=== PATIENT | female | born 1940 | race African-American/Black ===

== ENCOUNTER 2016-07-20 11:35 | Emergency (ER) | payer OTHER ==
[~2016-07-20] VITALS: Ht 170.2 cm; Wt 70.8 kg
[~2016-07-20 11:35] MED LIST: ASPI-110 PO; ATOR40TA16 PO; BENETAB PO; BRIM0.2S4 EACH EYE; CLON0.1T PO; DIOV160T6 PO; DORZ2SOL7 EACH EYE; FERR325T PO; FURO1TAB60 PO; GABA300C5 PO; GETGO ROLLING W1 MI1; KLOR8TAB PO; LACTCAP8 PO; LEVA500T PO; METO50TA PO; MIRA33504 PO; PLAV75TA29 PO; XANA1TAB2 PO
[2016-07-20 11:40] VITALS: BP 116/70; PULSE 64; RESP 16; TEMP 97.4; O2SAT 98
[2016-07-20 11:50] VITALS: BP 116/70; PULSE 66; RESP 16; O2SAT 98
[2016-07-20] MEDS ORDERED: AMLO10TA2 PO (12:17)
[2016-07-20 12:27] VITALS: BP 113/78; PULSE 61
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
[2016-07-20 12:48] LABS: AUTOMATED NEUTROPHIL # 1.7 TH/MM3 (1.8-7.7); BASOPHIL % 0.7 % (0.0-2.0); EOSINOPHIL # 0.2 TH/MM3 (0-0.4); EOSINOPHIL % 4.9 % (0.0-4.0); HEMATOCRIT 35.4 % (35.0-46.0); HEMO FLAGS DIFF FINAL; LYMPH % 34.7 % (9.0-44.0); LYMPHOCYTE # 1.2 TH/MM3 (1.0-4.8); MEAN CELL VOLUME 86.9 FL (80.0-100.0); MEAN CORPUSCULAR HEMOGLOBIN 29.7 PG (27.0-34.0); MEAN CORPUSCULAR HGB CONC 34.2 % (32.0-36.0); MONO % 7.8 % (0.0-8.0); NEUT % 51.9 % (16.0-70.0); PLATELET COUNT 342 TH/MM3 (150-450); RED BLOOD COUNT 4.07 MIL/MM3 (4.00-5.30); RED CELL DISTRIBUTION WIDTH 15.8 % (11.6-17.2); WHITE BLOOD COUNT 3.3 TH/MM3 (4.0-11.0)
[2016-07-20 13:04] LABS: BLOOD, URINE NEG (NEG); COMMENT (UR) CATH-CULT NOT IND; CULTURE IF INDICATED CATH CULTURE NOT IND; GLUCOSE,URINE NEG (NEG); HYALINE CAST, URINE 7 /lpf (RARE); KETONE, URINE NEG (NEG); MUCUS URINE FEW /lpf (OCC); NITRITE,URINE NEG (NEG); SQUAMOUS EPITHELIAL CELL URINE <1 /hpf (0-5); URINE COLOR YELLOW (YELLW/STRAW)
--- NOTE | 2016-07-20 13:23 | RADRPT ---
EXAM DATE/TIME: 07/20/2016 13:07 [facility] COMPARISON: No previous studies available for comparison. INDICATIONS : Altered mental status, confusion RADIATION DOSE: 56.35 CTDIvol (mGy) MEDICAL HISTORY : Cardiovascular disease. Congestive heart failure. Hypertension. SURGICAL HISTORY : Hysterectomy. ENCOUNTER: Initial ACUITY: 1 day PAIN SCALE: 0/10 LOCATION: cranial TECHNIQUE: Multiple contiguous axial images were obtained of the head. Using automated exposure control and adj ustment of the mA and/or kV according to patient size, radiation dose was kept as low as reasonably a chievable to obtain optimal diagnostic quality images. FINDINGS: There is marked central and cortical atrophy with dilatation of ventricular and sulcal spaces. Areas of low-attenuation throughout the white matter. There is no parenchymal hemorrhage, acute infarction or mass lesion identified. There are no extra-axial fluid collections appreciated. The posterior f abran is unremarkable with midline fourth ventricle. The portion of the orbits and paranasal sinuses visualized are unremarkable. CONCLUSION: Cerebral atrophy and chronic ischemic small vessel vasculopathy. Devin Davis MD on July 20, 2016 at 13:20 Board Certified Radiologist. This report was verified electronically.
[2016-07-20 13:35] LABS: ANION GAP 8 MEQ/L (5-15); BICARBONATE 26.5 MEQ/L (21.0-32.0); BLOOD UREA NITROGEN 16 MG/DL (7-18); CHLORIDE 105 MEQ/L (98-107); GLOMERULAR FILTRATION RATE 67 ML/MIN (>89); POTASSIUM 4.4 MEQ/L (3.5-5.1); SODIUM (NA) 139 MEQ/L (136-145)
[2016-07-20 14:28] LABS: AMPHETAMINE, URINE NEG (NEG); BARBITURATES, URINE NEG (NEG); COCAINE, URINE NEG (NEG)
[2016-07-20 14:38] VITALS: BP 110/69
== END 2016-07-20 14:59 | disposition home or self-care (01) ==
LOC: NEPC 11:35
DX: T88.7XXA Unspecified adverse effect of drug or medicament, initial encounter (principal); I10 Essential (primary) hypertension; I25.10 Atherosclerotic heart disease of native coronary artery without angina pectoris; I50.9 Heart failure, unspecified; Z87.442 Personal history of urinary calculi; V43.52XA Car driver injured in collision with other type car in traffic accident, initial encounter; Y93.9 Activity, unspecified; Y92.9 Unspecified place or not applicable; Y99.9 Unspecified external cause status
CPT/HCPCS: 70450; 80048; 80307; 81001; 85025

== ENCOUNTER 2016-07-29 06:24 | Inpatient (IN) | payer OTHER, MEDICARE ==
[~2016-07-29] VITALS: Ht 170.2 cm; Wt 64.0 kg
[2016-07-29] VITALS (10 sets, daily range): BP systolic 146–159; BP diastolic 72–96; PULSE 55–64; RESP 16–28; TEMP 97.9–99.2; O2SAT 86–100
[~2016-07-29 06:24] MED LIST changes: +AMLO10TA2 PO; -BENETAB PO; -GETGO ROLLING W1 MI1; -LACTCAP8 PO; -LEVA500T PO; -METO50TA PO
[2016-07-29] MEDS ORDERED: SODIUM CHLORIDE 0.9% FLUSH 10 ML FLUSH IVF PRN (06:30)
--- NOTE | 2016-07-29 06:38 | PD ---
HPI Chief Complaint: Neuro Symptoms/ Deficits Time Seen by Provider: 06:30 Travel History International Travel<30 days: No Contact w/Intl Traveler<30days: No Traveled to known affect area: No History of Present Illness HPI The patient is a 76-year-old Deepa female who presents emergency department via EMS for possible stroke. The patient with the bed feeling fine last night at approximately 9 PM. The patient awakened sometime between 4 AM and 5 AM when she noticed she had a mild left-sided headache, difficulty with her speech, and weakness/numbness of the right lower extremity. The patient does have a history of previous TIA, but denies any history of residual deficits. EMS states when they arrived the patient had expressive aphasia, however, she was able to ambulate out to the driveway to get onto the ambulance. The patient does take aspirin and Plavix. The patient does complain of a headache is located mostly over the left aspect of the head, nonradiating, with no accompanying neck pain. She denies any difficulty with her vision, does note mild dysarthria earlier this morning, however, she states her speech sounds normal now. She does complain of numbness and mild weakness of the right leg. She denies any numbness or tingling to the upper extremities. She does have a history of chronic chest pain, denies any acute chest pain, shortness breath, nausea, vomiting, or abdominal pain. Patient awakened with her symptoms, went to sleep at 9 PM [facility] Past Medical History Arthritis: Yes Asthma: No Autoimmune Disease: No Blood Disorders: No Heart Rhythm Problems: No Cancer: No Cardiac Catheterization: Yes Cardiovascular Problems: Yes High Cholesterol: Yes Chest Pain: Yes Congestive Heart Failure: Yes COPD: No Cerebrovascular Accident: No Coronary Artery Disease: Yes Diabetes: No Endocrine: No Gastrointestinal Disorders: Yes GERD: Yes Glaucoma: No Genitourinary: No Hepatitis: Yes Hiatal Hernia: No Hypertension: Yes Immune Disorder: No Implanted Vascular Access Dvce: Yes Kidney Stones: Yes Musculoskeletal: No Neurologic: No Psychiatric: No Reproductive: No Respiratory: Yes Integumentary: No Migraines: No Seizures: No Sleep Apnea: No Thyroid Disease: No Ulcer: No ?: Not Past Surgical History AICD: No Arteriovenous Shunt: No Body Medical Devices: ROOT CANAL Cardiac Surgery: Yes (2 STENT PLACEMENTS) Coronary Stent: Yes Gynecologic Surgery: Yes (HYSTERECTOMY) Hysterectomy: Yes Insulin Pump: No Joint Replacement: Yes Pacemaker: No Social History Alcohol Use: No Tobacco Use: No Substance Use: No Allergies-Medications (Allergen,Severity, Reaction): Coded Allergies: Morphine (Verified Allergy, Severe, 07/29/16) Percocet (Verified Allergy, Severe, 07/29/16) Tuberculin PPD (Verified Allergy, Severe, REDNESS, SWELLING, 07/29/16) Uncoded Allergies: TB LUZ TEST (Allergy, Intermediate, REDNESS, SWELLING, 10/02/08) Reported Meds & Prescriptions Reported Meds & Active Scripts Active Diovan (Valsartan) 160 Mg Tab 160 Mg PO DAILY 30 Days Reported Amlodipine (Amlodipine Besylate) 10 Mg Tab 10 Mg PO DAILY Xanax (Alprazolam) 1 Mg Tab 1 Mg PO BID PRN Aspirin 81 (Aspirin) 81 Mg Tabdr 81 Mg PO DAILY Atorvastatin (Atorvastatin Calcium) 40 Mg Tab 40 Mg PO HS Brimonidine Opth Drops (Brimonidine Tartrate) 0.2% Soln 1 Drop EACH EYE BID Clonidine (Clonidine HCl) 0.1 Mg Tab 0.1 Mg PO TID PRN Plavix (Clopidogrel Bisulfate) 75 Mg Tab 75 Mg PO DAILY Klor-Con 8 (Potassium Chloride) 8 Meq Tab 8 Meq PO DAILY Cosopt Opth Drops (Dorzolamide-Timolol Opth Drops) 22.3-6.8 Mg/Ml Soln 1 Drop EACH EYE BID Review of Systems Except as stated in HPI: all other systems reviewed are Neg General / Constitutional: No: Fever Eyes: No: Blurred Vision HENT: Positive: Headaches, No: Lightheadedness Cardiovascular: Positive: Chest Pain or Discomfort (chronic chest pain) Respiratory: No: Shortness of Breath Gastrointestinal: No: Nausea, Vomiting, Abdominal Pain Musculoskeletal: Positive: Weakness Neurologic: Positive: Headache, Paresthesia, Sensory Disturbance Physical Exam Narrative GENERAL: Awake, alert, pleasant 76-year-old female who appears her stated age and is in no acute respiratory distress. SKIN: Focused skin assessment warm/dry. HEAD: Atraumatic. Normocephalic. EYES: Pupils equal and round. Pupils are 2 mm bilateral and reactive. EOMs are intact. Patient is able to see fingers at a distance of 2 feet without difficulty. No obvious visual field deficits. ENT: No nasal bleeding or discharge. Mucous membranes pink and moist. NECK: Trachea midline. No JVD. CARDIOVASCULAR: Regular rate and rhythm. No murmur appreciated. RESPIRATORY: No accessory muscle use. Clear to auscultation. Breath sounds equal bilaterally. GASTROINTESTINAL: Abdomen soft, non-tender, nondistended. No rebound tenderness. MUSCULOSKELETAL: No obvious deformities. No clubbing. No cyanosis. No edema. NEUROLOGICAL: Awake and alert. Mild right sided facial droop. Tongue is midline. EOMs are intact. Patient is a was see fingers at a distance of 2 feet without difficulty. No drift of the upper extremities. No drift of the left lower extremity. Drift of the right lower extremity that falls to the bed after 2 seconds. Sensation is mildly decreased on the right lower extremity to soft touch when compared to the left leg. The arms are symmetric in the face is symmetric bilaterally. Finger to nose is normal. Patient had difficulty with nwas-ci-toed with the right lower extremity. Patient is alert and oriented 3. Patient appears to have mild dysarthria and appears to have mild expressive aphasia. PSYCHIATRIC: Appropriate mood and affect; insight and judgment normal. Data Data Last Documented VS Vital Signs Date Time Temp Pulse Resp B/P Pulse Ox O2 Delivery O2 Flow Rate FiO2 07/29/16 06:36 100 Room Air 07/29/16 06:33 64 16 07/29/16 06:28 97.9 153/96 Orders Electrocardiogram (07/29/16 06:30) Prothrombin Time / Inr (Pt) (07/29/16 06:30) Act Partial Throm Time (Ptt) (07/29/16 06:30) Complete Blood Count With Diff (07/29/16 06:30) Comprehensive Metabolic Panel (07/29/16 06:30) Creatine Kinase (Cpk) (07/29/16 06:30) Troponin I (07/29/16 06:30) Urinalysis - C+S If Indicated (07/29/16 06:30) Ct Brain W/O Iv Contrast(Rout) (07/29/16 06:30) Cta Brain W Iv Contrast W 3d (07/29/16 06:30) Cta Neck W Iv Contrast W 3d (07/29/16 06:30) Chest, Single Ap (07/29/16 06:30) Ecg Monitoring (07/29/16 06:30) Iv Access Insert/Monitor (07/29/16 06:30) Oximetry (07/29/16 06:30) Sodium Chloride 0.9% Flush (Ns Flush) (07/29/16 06:30) I-Stat Creatinine (07/29/16 06:30) I-Stat Profile (07/29/16 06:30) Labs Laboratory Tests Test 07/29/16 06:30 Bedside Creatinine 0.9 MG/DL MDM Medical Decision Making Medical Screen Exam Complete: Yes Emergency Medical Condition: Yes Medical Record Reviewed: Yes Interpretation(s) CT of the head without contrast reveals stable brain. No acute intracranial findings. Differential Diagnosis Differential diagnoses includes CVA, TIA, intracranial hemorrhage, subdural hemorrhage, subarachnoid hemorrhage, hypoglycemia, hyponatremia, hypocalcemia, carotid dissection, complicated migraine. Narrative Course IV was established, labs are drawn and sent, and the patient was placed on cardiac telemetry monitoring and continuous pulse ox imaging monitoring. EKG was ordered and interpreted. Patient went immediately to CT for CT the brain, I also ordered CTA of the brain and neck, the patient was seen on July 20, 2016 for medication side effect and had a creatinine is 0.98. CT of the brain was stable, no acute intracranial findings. Therefore, the patient was administered aspirin. The patient was signed out to the oncoming physician at 7 AM. Diagnosis Primary Impression: CVA (cerebral vascular accident) Qualified Code: I63.9 - Cerebrovascular accident (CVA), unspecified mechanism Condition: Stable Rashaad Arzola MD Jul 29, 2016 06:37
--- NOTE | 2016-07-29 06:52 | RADRPT ---
EXAM DATE/TIME: 07/29/2016 06:32 [facility] COMPARISON: CT BRAIN W/O CONTRAST, July 20, 2016, 13:07. INDICATIONS : Right sided facial droop. Cephalgia. RADIATION DOSE: 56.35 CTDIvol (mGy) MEDICAL HISTORY : Cardiovascular disease. Stroke SURGICAL HISTORY : None. ENCOUNTER: Initial ACUITY: 1 day PAIN SCALE: 0/10 LOCATION: cranial TECHNIQUE: Multiple contiguous axial images were obtained of the head. Using automated exposure control and adj ustment of the mA and/or kV according to patient size, radiation dose was kept as low as reasonably a chievable to obtain optimal diagnostic quality images. FINDINGS: There is a stable tiny left basal ganglia lacunar infarct. No evidence of intracranial mass or hemorr ruiz. There is nothing to suggest acute infarction. There is dense atherosclerotic calcification invo lving the cerebral vessels. Ventricles are symmetric and normal. Extracranial structures are benign a nd intact. CONCLUSION: Stable brain. No acute intracranial findings Jhon Dixon MD on July 29, 2016 at 6:48 Board Certified Radiologist. This report was verified electronically.
[2016-07-29 06:55] LABS: AUTOMATED NEUTROPHIL # 1.2 TH/MM3 (1.8-7.7); BASOPHIL % 0.6 % (0.0-2.0); EOSINOPHIL # 0.2 TH/MM3 (0-0.4); EOSINOPHIL % 5.3 % (0.0-4.0); HEMATOCRIT 30.5 % (35.0-46.0); HEMO FLAGS DIFF FINAL; LYMPHOCYTE # 1.4 TH/MM3 (1.0-4.8); MEAN CELL VOLUME 86.4 FL (80.0-100.0); MEAN CORPUSCULAR HGB CONC 33.6 % (32.0-36.0); NEUT % 37.1 % (16.0-70.0); PLATELET COUNT 312 TH/MM3 (150-450); RED BLOOD COUNT 3.53 MIL/MM3 (4.00-5.30); RED CELL DISTRIBUTION WIDTH 15.3 % (11.6-17.2); WHITE BLOOD COUNT 3.2 TH/MM3 (4.0-11.0)
[2016-07-29] MEDS ORDERED: IOHEXOL 350 MG/ML 10 ML VIAL (for RAD DIAG) IV ONE (06:57)
[2016-07-29 06:59] LABS: I-STAT POTASSIUM 3.6 MMOL/L (3.5-4.9); I-STAT SODIUM 142 MMOL/L (138-146)
[2016-07-29] MEDS ORDERED: ASPIRIN 325 MG TAB PO ONE (07:00)
--- NOTE | 2016-07-29 07:00 | RADRPT ---
EXAM DATE/TIME: 07/29/2016 06:52 [facility] COMPARISON: CHEST SINGLE AP, February 06, 2016, 11:31. INDICATIONS : Short of breath MEDICAL HISTORY : None. SURGICAL HISTORY : None. ENCOUNTER: Initial ACUITY: 1 day PAIN SCORE: 110 LOCATION: Bilateral chest FINDINGS: No the lungs are focally clear. No pleural effusion is evident. Cardiomediastinal contours are grossl y stable. There is contrast present within the venous structures of the right arm, presumably from re cent CT injection. Thoracic skeleton is grossly intact. CONCLUSION: No acute disease Jhon Dixon MD on July 29, 2016 at 6:57 Board Certified Radiologist. This report was verified electronically.
[2016-07-29 07:02] LABS: APTT (PATIENT) 32.9 SEC (24.3-30.1); PROTHROMBIN TIME - PATIENT 10.9 SEC (9.8-11.6)
[2016-07-29 07:10] LABS: ALT (GPT) 17 U/L (10-53); ANION GAP 8 MEQ/L (5-15); AST (GOT) 13 U/L (15-37); BICARBONATE 26.8 MEQ/L (21.0-32.0); BLOOD UREA NITROGEN 11 MG/DL (7-18); CHLORIDE 106 MEQ/L (98-107); GLOMERULAR FILTRATION RATE 73 ML/MIN (>89); POTASSIUM 3.6 MEQ/L (3.5-5.1); SODIUM (NA) 141 MEQ/L (136-145)
[2016-07-29 07:14] LABS: ALKALINE PHOSPHATASE 65 U/L (45-117); CREATINE KINASE 117 U/L (26-192); TOTAL BILIRUBIN ADULT 0.3 MG/DL (0.2-1.0)
--- NOTE | 2016-07-29 07:24 | RADRPT ---
EXAM DATE/TIME: 07/29/2016 06:43 [facility] COMPARISON: CT BRAIN W/O CONTRAST, July 29, 2016, 6:32. INDICATIONS : Cephalgia. Right sided facial droop. IV CONTRAST: 85 cc Omnipaque 350 (iohexol) IV RADIATION DOSE: 12.98 CTDIvol (mGy) ; Combined studies MEDICAL HISTORY : Cerebrovascular disease. Stroke SURGICAL HISTORY : None. ENCOUNTER: Initial ACUITY: 1 day PAIN SCALE: 0/10 LOCATION: cranial TECHNIQUE: Volumetric scanning was performed using a multi-row detector CT scanner. The data was post processed with a variety of visualization algorithms including full volume maximum intensity projection, multi -planar sliding thin slab reformation, curved planar reformation, and surface rendering techniques. Using automated exposure control and adjustment of the mA and/or kV according to patient size, radiat ion dose was kept as low as reasonably achievable to obtain optimal diagnostic quality images. FINDINGS: There is excellent visualization of the major intracranial arteries out to the second-order branch ve ssels. There is no evidence for aneurysm, vessel truncation or stenosis, and no evidence for vascula r malformation. There is atherosclerotic plaquing of the intracranial vasculature were scattered calc ifications seen. No evidence of high-grade stenosis. The vertebrobasilar system is quite tortuous but widely patent.1.4 cm heterogeneous solid right thyroid lobe mass seen posteriorly and 2 masses in th e left thyroid lobe measuring 7.6 mm and 6.5 mm on axial image 13. CONCLUSION: Atherosclerotic disease without evidence of high-grade stenosis or aneurysm. Thyroid nodules. Betito Gardner MD on July 29, 2016 at 7:19 Board Certified Radiologist. This report was verified electronically.
--- NOTE | 2016-07-29 07:54 | RADRPT ---
EXAM DATE/TIME: 07/29/2016 06:43 [facility] COMPARISON: No previous studies available for comparison. INDICATIONS : Cephalgia. Right sided facial droop. IV CONTRAST: 85 cc Omnipaque 350 (iohexol) IV RADIATION DOSE: 12.98 CTDIvol (mGy) ; Combined studies MEDICAL HISTORY : Cerebrovascular disease. Stroke SURGICAL HISTORY : None. ENCOUNTER: Initial ACUITY: 1 day PAIN SCALE: 0/10 LOCATION: cranial Elevated flow velocities and ICA/CCA ratios have been found to correlate with increased degrees of vessel stenosis, calculated as percentage of diameter relative to a normal segment of distal ICA/CCA. TECHNIQUE: Volumetric scanning was performed using a multirow detector CT scanner. The data was post processed with a variety of visualization algorithms including full-volume maximum intensity projection, multip lanar sliding thin-slab reformation, curved-planar reformation, and surface-rendering techniques. Us ing automated exposure control and adjustment of the mA and/or kV according to patient size, radiatio n dose was kept as low as reasonably achievable to obtain optimal diagnostic quality images. FINDINGS: AORTIC ARCH: There is a three-vessel origin of the great vessels from the aorta. No evidence of ostial narrowing. RIGHT CAROTID: The common carotid artery demonstrates no abnormality. The carotid bulb has a normal configuration wi thout ulceration or narrowing. There is mild calcified and noncalcified plaque in the carotid bulb. I nternal carotid artery and external carotid artery demonstrate no significant abnormality. LEFT CAROTID: The common carotid artery demonstrates no abnormality. The carotid bulb has a normal configuration wi thout ulceration or narrowing. There is mild calcified and noncalcified plaque in the carotid bulb. I nternal carotid artery and external carotid artery demonstrate no significant abnormality. VERTEBRALS: The vertebral arteries have a symmetric diameter. No stenotic lesions are seen. There are bilateral thyroid nodules measuring up to 13 mm on the right. CONCLUSION: 1. Mild atherosclerotic disease in the carotid bulbs bilaterally but there is no associated luminal n arrowing. 2. There is a 13 mm right thyroid nodule. Jhon Bach MD on July 29, 2016 at 7:40 Board Certified Radiologist. This report was verified electronically.
[2016-07-29 08:14] LABS: BLOOD, URINE NEG (NEG); COMMENT (UR) CATH-CULT NOT IND; CULTURE IF INDICATED CATH CULTURE NOT IND; GLUCOSE,URINE NEG (NEG); KETONE, URINE NEG (NEG); MUCUS URINE FEW /lpf (OCC); NITRITE,URINE NEG (NEG); URINE COLOR LIGHT-YELLOW (YELLW/STRAW)
--- NOTE | 2016-07-29 11:21 | EKG ---
Date Performed: 07/29/2016 Time Performed: 06:59:37 PTAGE: 76 years EKG: SINUS BRADYCARDIA WITH FIRST DEGREE AV BLOCK WITH OCCASIONAL SUPRAVENTRICULAR PREMATURE COM PLEXES MARKED LEFT AXIS DEVIATION LEFT BUNDLE BRANCH BLOCK ABNORMAL ECG PREVIOUS TRACING : 02/08/2016 00.10 Compared to prior tracing no significant change DOCTOR: Anuj Acevedo Interpretating Date/Time 07/29/2016 11:20:29
[2016-07-29] MEDS ORDERED: SODIUM CHLOR 0.9% 1000 ML INJ 1,000 ML IV SCH (11:33)
[2016-07-29] MEDS ORDERED: GLUCAGON 1 MG/ML VIAL OTHER PRN (11:45)
[2016-07-29] MEDS ORDERED: DEXTROSE 50% IN WATER 50 ML VIAL(D50) IV PUSH PRN (11:45)
[2016-07-29] MEDS ORDERED: SODIUM CHLORIDE 0.9% FLUSH 5 ML FLUSH IV FLUSH PRN (11:45)
[2016-07-29] MEDS ORDERED: ENALAPRILAT 1.25 MG/ML VIAL IV PRN (11:45)
--- NOTE | 2016-07-29 11:53 | PD ---
Data Data Last Documented VS Vital Signs Date Time Temp Pulse Resp B/P Pulse Ox O2 Delivery O2 Flow Rate FiO2 07/29/16 11:21 56 18 159/90 98 Room Air 07/29/16 06:28 97.9 Orders Electrocardiogram (07/29/16 06:30) Prothrombin Time / Inr (Pt) (07/29/16 06:30) Act Partial Throm Time (Ptt) (07/29/16 06:30) Complete Blood Count With Diff (07/29/16 06:30) Comprehensive Metabolic Panel (07/29/16 06:30) Creatine Kinase (Cpk) (07/29/16 06:30) Troponin I (07/29/16 06:30) Urinalysis - C+S If Indicated (07/29/16 06:30) Ct Brain W/O Iv Contrast(Rout) (07/29/16 06:30) Cta Brain W Iv Contrast W 3d (07/29/16 06:30) Cta Neck W Iv Contrast W 3d (07/29/16 06:30) Chest, Single Ap (07/29/16 06:30) Ecg Monitoring (07/29/16 06:30) Iv Access Insert/Monitor (07/29/16 06:30) Oximetry (07/29/16 06:30) Sodium Chloride 0.9% Flush (Ns Flush) (07/29/16 06:30) I-Stat Creatinine (07/29/16 06:30) I-Stat Profile (07/29/16 06:30) Aspirin (Aspirin) (07/29/16 07:00) Iohexol 350 Inj (Omnipaque 350 Inj) (07/29/16 06:57) Admit To Inpatient (07/29/16 ) Vital Signs (Adult) Q4H (07/29/16 11:33) Nih Stroke Scale - Nihss .On admission and discharge (07/29/16 11:33) Notify Dr: Other (07/29/16 11:33) Ot Request For Service (07/29/16 11:33) Consult Pt Eval & Treat (07/29/16 11:33) Swallow Eval W/ St (07/29/16 11:33) Case Management Consult (07/29/16 ) Activity Bed Rest (07/29/16 11:33) Nursing Bedside Swallow Assess .ONCE (07/29/16 11:33) Scd Bilateral/Knee High TIFFANIE.QSHIFT (07/29/16 11:33) Diet Npo (07/29/16 Lunch) Hemoglobin (Hgb) A1c (07/29/16 11:33) Lipid Profile (07/30/16 06:00) Holter Monitor Recording (07/29/16 ) Echo 2d Comp With Doppler (07/29/16 ) Urinary Catheter Management TIFFANIE.Q8H (07/29/16 11:33) Remove Urinary Catheter .ONCE (07/29/16 11:33) Resp Oxygen Wilson C Titrat 1-4 L (07/29/16 ) ^ Hold Medication (07/29/16 11:33) Consult Neurology (07/29/16 ) Sodium Chloride 0.9% Flush (Ns Flush) (07/29/16 21:00) Sodium Chloride 0.9% Flush (Ns Flush) (07/29/16 11:45) Sodium Chlor 0.9% 1000 Ml Inj (Ns 1000 M (07/29/16 11:33) Enalaprilat Inj (Vasotec Inj) (07/29/16 11:45) Aspirin Chew (Aspirin Chew) (07/30/16 09:00) Bedside Glucose TIFFANIE.AC&HS (07/29/16 11:33) ^ Discontinue Insulin Orders (07/29/16 11:33) Insulin Aspart Supplemtl Scale (Novolog (07/29/16 16:00) Dextrose 50% In Alexandre (Vial) Inj (D50w (Vi (07/29/16 11:45) Glucagon Inj (Glucagon Inj) (07/29/16 11:45) Consult Rehab Medicine (07/29/16 11:33) Field Geologist / Telemetry TIFFANIE.Q8H (07/29/16 11:33) Consult Stoke Navigator (07/29/16 ) Enoxaparin Inj (Lovenox Inj) (07/29/16 11:45) Scd Bilateral/Knee High TIFFANIE.BID (07/29/16 11:33) Inpatient Certification (07/29/16 ) Admit Order (Ed Use Only) (07/29/16 11:48) Labs Laboratory Tests Test 07/29/16 07/29/16 06:30 07:45 White Blood Count 3.2 TH/MM3 Red Blood Count 3.53 MIL/MM3 Hemoglobin 10.2 GM/DL Bedside Hemoglobin 10.5 G/DL Hematocrit 30.5 % Bedside Hematocrit 31.0 % Mean Corpuscular Volume 86.4 FL Mean Corpuscular Hemoglobin 29.0 PG Mean Corpuscular Hemoglobin 33.6 % Concent Red Cell Distribution Width 15.3 % Platelet Count 312 TH/MM3 Mean Platelet Volume 7.3 FL Neutrophils (%) (Auto) 37.1 % Lymphocytes (%) (Auto) 44.0 % Monocytes (%) (Auto) 13.0 % Eosinophils (%) (Auto) 5.3 % Basophils (%) (Auto) 0.6 % Neutrophils # (Auto) 1.2 TH/MM3 Lymphocytes # (Auto) 1.4 TH/MM3 Monocytes # (Auto) 0.4 TH/MM3 Eosinophils # (Auto) 0.2 TH/MM3 Basophils # (Auto) 0.0 TH/MM3 CBC Comment DIFF FINAL Differential Comment Prothrombin Time 10.9 SEC Prothromb Time International 1.0 RATIO Ratio Activated Partial 32.9 SEC Thromboplast Time Bedside Sodium 142 MMOL/L Sodium Level 141 MEQ/L Bedside Potassium 3.6 MMOL/L Potassium Level 3.6 MEQ/L Bedside Chloride 103 MMOL/L Chloride Level 106 MEQ/L Carbon Dioxide Level 26.8 MEQ/L Anion Gap 8 MEQ/L Bedside Blood Urea Nitrogen 12 MG/DL Blood Urea Nitrogen 11 MG/DL Creatinine 0.91 MG/DL Bedside Creatinine 0.9 MG/DL Estimat Glomerular Filtration 73 ML/MIN Rate Bedside Glucose 99 MG/DL Random Glucose 97 MG/DL Calcium Level 8.9 MG/DL Total Bilirubin 0.3 MG/DL Aspartate Amino Transf 13 U/L (AST/SGOT) Alanine Aminotransferase 17 U/L (ALT/SGPT) Alkaline Phosphatase 65 U/L Total Creatine Kinase 117 U/L Troponin I LESS THAN 0.02 NG/ML Total Protein 7.6 GM/DL Albumin 3.5 GM/DL Urine Color LIGHT-YELLOW Urine Turbidity CLEAR Urine pH 6.0 Urine Specific [place] 1.039 Urine Protein NEG mg/dL Urine Glucose (UA) NEG mg/dL Urine Ketones NEG mg/dL Urine Occult Blood NEG Urine Nitrite NEG Urine Bilirubin NEG Urine Urobilinogen LESS THAN 2.0 MG/DL Urine Leukocyte Esterase NEG Urine RBC LESS THAN 1 /hpf Urine WBC 1 /hpf Urine Mucus FEW /lpf Microscopic Urinalysis Comment CATH-CULT NOT IND MDM Supervised Visit with DIAZ: No Narrative Course Is checked out to me by Dr. Arzola. This patient woke up with right-sided weakness and speech slurring. I reviewed the entirety of the workup. I reviewed her labs. Brain CT shows no acute finding CTA is negative for aneurysm or dissection I reviewed the case with Dr. 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
[2016-07-29] MEDS: ENOXAPARIN SODIUM 30 MG/0.3 ML SYRINGE SQ SCH (12:34)
[2016-07-29] MEDS: SODIUM CHLOR 0.9% 1000 ML INJ 1,000 ML IV SCH (13:38)
[2016-07-29 15:42] LABS: FREE T4 0.94 NG/DL (0.76-1.46); HDL CHOLESTEROL 45.3 MG/DL (40.0-60.0)
[2016-07-29] MEDS ORDERED: LORazepam 2 MG/ML VIAL ONE (15:50)
[2016-07-29] MEDS: INSULIN ASPART SUPPLEMENTAL SCALE SQ SCH ×2 (16:00→21:00)
[2016-07-29] MEDS ORDERED: LORazepam 2 MG/ML VIAL IV ONE (16:15)
[2016-07-29 16:28] LABS: HEMOGLOBIN A1a 1.1 %; HEMOGLOBIN A1b 0.8 %; HEMOGLOBIN Ao 85.3 %; HEMOGLOBIN F 1.1 %; HEMOGLOBIN LA1C 1.9 %; HEMOGLOBIN P3 5.2 %
[2016-07-29] MEDS ORDERED: levETIRAcetam 1000 MG INJ 100 ML IV ONE (16:30)
--- NOTE | 2016-07-29 16:41 | RADRPT ---
EXAM DATE/TIME: 07/29/2016 16:00 [facility] COMPARISON: CTA BRAIN W 3D RECON, July 29, 2016, 6:43. CT BRAIN W/O CONTRAST, July 29, 2016, 6:32. INDICATIONS : CVA. Right facial droop, cephalgia. CONTRAST: 12 cc Omniscan (gadodiamide) IV MEDICAL HISTORY : Osteoarthritis. Congestive heart failure. Hypertension. GERD. SURGICAL HISTORY : Total knee replacement, right. Hysterectomy. Coronary artery stent. ENCOUNTER: Subsequent ACUITY: 1 day PAIN SCORE: 0/10 LOCATION: head. TECHNIQUE: Multiplanar, multisequence MRI of the brain was performed both prior to and following the administrat ion of paramagnetic contrast. FINDINGS: CEREBRUM: There is mild cerebral atrophy. Ventricles are normal in size. No evidence of midline shift, mass les ion, hemorrhage or acute infarction. No extraaxial fluid collections are seen. There is a partially empty sella turcica. WHITE MATTER: There is mild periventricular and subcortical white matter signal change bilaterally. POSTERIOR FOSSA: Punctate area of susceptibility artifact is present in the right cerebellum. Fourth ventricle is norm al. The ectatic basilar artery has mild mass effect on the right jorge. DIFFUSION IMAGING: No focal areas of restricted diffusion are seen. No evidence of acute infarction. EXTRACRANIAL: The visualized portions of the orbits and paranasal sinuses are unremarkable. POST-CONTRAST: No abnormal areas of parenchymal or dural enhancement. No evidence of blood-brain barrier breakdown. CONCLUSION: 1. No acute intracranial abnormality is identified. There are no findings to indicate recent ischemia . 2. Chronic changes include mild cerebral atrophy and periventricular and subcortical white matter sig nal changes characteristic of chronic microvascular ischemia. Jhon Bach MD on July 29, 2016 at 16:33 Board Certified Radiologist. This report was verified electronically.
--- NOTE | 2016-07-29 17:19 | EC ---
Study Study Date:07/29/2016 STUDY CONCLUSIONS SUMMARY - Left ventricle: The cavity size was dilated. Wall thickness was increased in a pattern of mild LVH. Systolic function was mildly reduced. The estimated ejection fraction was in the range of 45% to 50%. Diffuse hypokinesis. - Aortic valve: Moderate regurgitation. Valve area: 2.27cm^2 (Vmax). - Aorta: The possibility of dissection is not excluded. Ascending aortic diameter: 42mm (S). - Aortic root: The aortic root was poorly visualized and dilated. - Right atrium: The atrium was mildly dilated. - Tricuspid valve: Moderate regurgitation. - Pulmonary arteries: Systolic pressure was moderately increased. PA peak pressure: 54mm Hg (S). If LV function is below 40, please consider prescribing an ACEI or ARB or document rationale for non-use. PROCEDURE DATA STUDY STATUS: Elective. Procedure: Transthoracic echocardiography. Image quality was good. Scanning was performed from the parasternal, apical, and subcostal acoustic windows. Study completion: The patient tolerated the procedure well. Transthoracic echocardiography. M-mode, complete 2D, complete spectral Doppler, and color Doppler. Height: Height: 67in. Weight: Weight: 138.7lb. Body mass index: BMI: 21.8kg/m^2. Body surface area: BSA: 1.73m^2. Patient status: Inpatient. CARDIAC ANATOMY LEFT VENTRICLE: Not well visualized. The cavity size was dilated. Wall thickness was increased in a pattern of mild LVH. Systolic function was mildly reduced. The estimated ejection fraction was in the range of 45% to 50%. Diffuse hypokinesis. AORTIC VALVE: Probably trileaflet; mildly thickened leaflets. Doppler: Transvalvular velocity was within the normal range. There was no stenosis. Moderate regurgitation. Valve area: 2.27cm^2 (Vmax). Indexed valve area: 1.31cm^2/m^2 (Vmax). Aorta: - The possibility of dissection is not excluded. Aortic root: The aortic root was poorly visualized and dilated. MITRAL VALVE: Structurally normal valve. Doppler: Transvalvular velocity was within the normal range. There was no evidence for stenosis. No regurgitation. Peak gradient: 4mm Hg (D). LEFT ATRIUM: The atrium was normal in size. RIGHT VENTRICLE: The cavity size was normal. Wall thickness was normal. PULMONIC VALVE: Doppler: Transvalvular velocity was within the normal range. There was no evidence for stenosis. No regurgitation. TRICUSPID VALVE: Structurally normal valve. Doppler: Transvalvular velocity was within the normal range. Moderate regurgitation. PULMONARY ARTERY: Systolic pressure was moderately increased. RIGHT ATRIUM: The atrium was mildly dilated. PERICARDIUM: There was no pericardial effusion. SYSTEMIC VEINS: Inferior vena cava: The vessel was normal in size. Patient weight: 138.7lb _Ejection fraction:_ 65-75% _Fractional shortening:_ 32% up to 5Kg 5-11.5Kg 11.6-22.9Kg 23-45Kg 45-57Kg Aortic Root 7-13 <17 13-22 17-27 17-27 LA diam 6-13 <23 24-38 33-47 37-40 RVID 10-17 7-15 7-15 7-18 8-17 LVIDd 12-22 <32 24-38 33-47 37-40 LVPW 2-4 3-6 5-7 6-8 7-8 IVS 2-4 3-6 5-7 6-8 7-8 BASIC MEASUREMENTS ADULT NORMAL Left ventricle LV internal dimension, ED, chordal 44.5 mm 43-52 level, PLAX LV internal dimension, ES, chordal 36.3 mm 23-38 level, PLAX Fractional shortening, chordal level, *18 % >29 PLAX LV posterior wall thickness, ED 10.9 mm IVS/LVPW ratio, ED 1.03 <1.3 Ventricular septum Septal thickness, ED 11.2 mm Aortic valve Leaflet separation 23 mm 15-26 Aorta Ascending aorta anterior-posterior 42 mm diameter, S BASIC MEASUREMENTS ADULT NORMAL Aortic valve Leaflet separation 23 mm 15-26 Aorta Root diameter, ED 36 mm 20-37 Left atrium Anterior-posterior dimension, ES 32 mm 19-40 Anterior-posterior dimension index, ES 1.85 cm/m^2 <2.2 LA/aortic root ratio 0.89 DOPPLER MEASUREMENTS ADULT NORMAL Main pulmonary artery Pressure, S *54 mm Hg =30 Pressure, ED 14 mm Hg Aortic valve Peak velocity, S 147 cm/s Valve area, Vmax 2.27 cm^2 Valve area index, Vmax 1.31 cm^2/m^2 Regurgitant velocity, ED 309 cm/s Regurgitant deceleration 824 cm/s^2 Regurgitant pressure half-time 1099 ms Regurgitant gradient, ED 38 mm Hg Mitral valve Peak E-wave velocity 105 cm/s Peak A-wave velocity 83.9 cm/s Deceleration time *289 ms 150-230 Peak gradient, D 4 mm Hg Peak E/A ratio 1.3 Tricuspid valve Regurgitant peak velocity 267 cm/s Peak RV-RA gradient, S 29 mm Hg Maximal regurgitant velocity 267 cm/s Systemic veins Estimated CVP 10 mm Hg Right ventricle RV pressure, S *58 mm Hg <30 Pulmonic valve Peak velocity, S 100 cm/s Regurgitant velocity, ED 102 cm/s LEGEND: Mean values are shown as u=mean value. Asterisk (*) milton values outside specified normal range. Amended Vargas Chavira [id number]
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
[2016-07-29] MEDS ORDERED: GADODIAMIDE PF 287 MG/ML 5 ML VIAL (for RAD MRI) IV ONE (17:43)
[2016-07-29] MEDS: SODIUM CHLORIDE 0.9% FLUSH 5 ML FLUSH IV FLUSH SCH (21:00)
--- NOTE | 2016-07-29 23:20 | MG ---
cc: NASREEN OLSEN MD Lab No: Date: 07/29/16 Age: 75 Sex: F Race: 1940 [address] Rouse MEDICAL HISTORY Headache, difficulty with speech, weakness and numbness. MEDICATIONS 1. Amlodipine mesylate 2. Xanax 3. Aspirin. 4. Atorvastatin 5. Clonidine 6. Plavix DESCRIPTION The background activity is 9-10 Hz alpha, located posteriorly, bilateral and symmetrical superimposed by excessive beta activity. The recording is contaminated by excessive movement artifact. There are intermittent transient left frontal sharp wave activity. These are bilateral left greater than the right. There is also spike and wave activity in the bilateral frontal hemisphere. Photic stimulation did not elicit a driving response. There were no electrographic seizures noted during the recording. INTERPRETATION This is a abnormal awake EEG recording with intermittent sharp activity and with spike and wave activity, left greater than right hemisphere of the brain that may indicate epileptogenicity. Excessive beta activity is a non specific finding that may be related to medication adverse effects like Benzo and Barbiturates. Absence of electrocardiographic seizures does not rule out the diagnosis of epilepsy. Clinical correlation is recommended. MD ZAFAR Mckeon/ /4:51 PM /11:14 PM MTDD
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
[2016-07-30] VITALS (19 sets, daily range): BP systolic 107–182; BP diastolic 70–125; PULSE 52–133; RESP 14–37; TEMP 98.4–99.3; O2SAT 71–100
[2016-07-30] MEDS: ATORVASTATIN 40 MG TAB PO SCH ×2 (00:38→19:30)
[2016-07-30] MEDS: BRIMONIDINE TARTRATE 0.2% OPHT SOLN 5 ML BTL EACH EYE SCH ×3 (00:38→19:31)
[2016-07-30] MEDS: SODIUM CHLOR 0.9% 1000 ML INJ 1,000 ML IV SCH ×2 (00:39→17:32)
[2016-07-30 04:13] LABS: AMPHETAMINE, URINE NEG (NEG); BARBITURATES, URINE NEG (NEG); COCAINE, URINE NEG (NEG)
[2016-07-30 06:23] LABS: HDL CHOLESTEROL 48.6 MG/DL (40.0-60.0)
[2016-07-30] MEDS: levETIRAcetam 1000 MG INJ 100 ML IV SCH ×2 (06:42→17:31)
[2016-07-30] MEDS: INSULIN ASPART SUPPLEMENTAL SCALE SQ SCH ×4 (06:42→19:31)
[2016-07-30] MEDS: DORZOLAMIDE/TIMOLOL OPTH SOLN 10 ML BTL EACH EYE SCH ×2 (08:05→19:31)
[2016-07-30] MEDS: CLOPIDOGREL 75 MG TAB PO SCH (08:05)
[2016-07-30] MEDS: SODIUM CHLORIDE 0.9% FLUSH 5 ML FLUSH IV FLUSH SCH ×2 (08:13→19:31)
[2016-07-30] MEDS ORDERED: ALPRAZolam 0.25 MG TAB PO PRN (08:15)
[2016-07-30] MEDS ORDERED: ASPIRIN 81 MG CHEW TAB PO SCH (09:00)
--- NOTE | 2016-07-30 09:16 | HHI.PR ---
Subjective Remarks tmax 99 Objective Vital Signs Date Time Temp Pulse Resp B/P Pulse Ox O2 Delivery O2 Flow Rate FiO2 07/30/16 06:00 62 07/30/16 04:00 52 07/30/16 04:00 99.3 80 34 151/82 71 07/30/16 02:00 53 07/30/16 00:00 52 07/30/16 00:00 98.9 56 18 135/86 100 07/29/16 22:00 59 07/29/16 20:43 99 21 07/29/16 20:00 55 07/29/16 20:00 99.2 60 28 86 07/29/16 18:34 62 07/29/16 17:01 58 18 146/72 98 07/29/16 12:34 57 18 159/90 98 Room Air 07/29/16 11:21 56 18 159/90 98 Room Air I/O 07/29/16 07/29/16 07/29/16 07/30/16 07/30/16 07/30/16 07:00 15:00 23:00 07:00 15:00 23:00 Intake Total 1000 ml 795 ml Output Total 1150 ml Balance -150 ml 795 ml Intake Oral 700 ml 355 ml IV Total 300 ml 440 ml Output Urine Total 1150 ml # Voids 3 # Bowel Movements 2 0 Result Diagram: 07/29/16 0630 07/29/16 0630 Other Results mri nl labs ok eeg some spike wave Objective Remarks awake some expressive type problems moves all well does not know yr month or place Assessment and Plan Assessment and Plan imp eeg shows some sz activity mri neg i think probably posticta interictal doubt encephalitis but also possible start acyclovir i will review eeg repeat eeg on plavix so LP unable on keppra add Fazal Wiley MD Jul 30, 2016 09:16
[2016-07-30] MEDS ORDERED: VALPROATE INJ 500 MG in SODIUM CHLORIDE 0.9% INJ 100 ML IV SCH (10:00)
[2016-07-30] MEDS ORDERED: HALOPERIDOL LACTATE 5 MG/ML AMP IM ONE (10:15)
[2016-07-30 10:48] LABS: RAPID PLASMA REAGIN SCREEN NON-REACTIVE (NON-REACTVE)
[2016-07-30 11:18] LABS: BICARBONATE 22.2 MEQ/L (21.0-32.0); POTASSIUM 3.9 MEQ/L (3.5-5.1)
[2016-07-30 11:22] LABS: THYROXINE (T4) 8.6 MCG/DL (4.8-13.9)
[2016-07-30] MEDS: ENOXAPARIN SODIUM 30 MG/0.3 ML SYRINGE SQ SCH (11:22)
[2016-07-30] MEDS: SODIUM CHLORIDE 0.9% IV SCH ×2 (11:22→18:39)
[2016-07-30] MEDS: QUEtiapine FUMARATE 25 MG TAB PO SCH (11:22)
[2016-07-30] MEDS: ACYCLOVIR IV SCH ×2 (11:22→18:39)
[2016-07-30 11:31] LABS: FREE T3 2.94 PG/ML (2.18-3.98)
[2016-07-30] MEDS: DIVALPROEX SODIUM E.R. 500 MG TAB PO SCH ×2 (11:34→19:30)
[2016-07-30 13:36] LABS: ANA SCREEN NEG (NEG)
--- NOTE | 2016-07-30 13:42 | OTSOAPIP ---
RN REQUESTS TO HOLD THIS DATE DUE TO PATIENT ATTEMPTING TO LEAVE AMA. Therapist: Felicitas Ferro OTR/L Signature on file
--- NOTE | 2016-07-30 13:58 | PD.CONS ---
Provisional Diagnosis Admission Date Jul 29, 2016 at 11:51 [place] I. Delirium due to underlying medical conditions vs post ictal psychosis [place] II. Deferred [place] III. Hypertension Hyperlipidemia Coronary artery disease with cardiac stenting in the past Anxiety Chronic leukopenia Glaucoma Patient reports a CVA 30 years ago. CK D stage III [place] IV. Patient lives alone [place] V. 57 History of Present Illness Service Psychiatry Consult Requested By Primary Care Physician Unknown HPI The patient is a 76-year-old woman, domiciled alone in [place], she is single, retired nurse, with previous psychiatric history of anxiety, she has been Xanax in the past no previous psychiatric hospitalizations , no previous suicidal attempts, with a history medical history of hypertension , hyperlipidemia, coronary accident 2 weeks ago secondary to medication side effect, who presents with acute onset slurred speech and variable weakness in alternating left and right upper lower extremities starting at 4 AM. She called 911. She denies any chest pain or shortness of breath. She reports reversely feeling all right. She does report similar symptoms, but has not come in the hospital for these. She reports stopping Xanax 2 weeks ago, and intermittently taking gabapentin. On EEG patient showed seizure activity, complex partial seizures are possible, post ictal could be the reason of recent confusion. Encephalopathy is improbable, but patient was a started in acyclovir. LP was not performed because patient is on Plavix. Still pending. Consulted to psychiatry due to persistent confusion/psychosis. On psychiatric evaluation today patient is found soft restrained in 2 pints, 2 hands. Patient is alert, calm, cooperative, but periodically agitated and disorganized. Patient says that she feels okay, she denies distress or pain. She reports good mood, she denies depressive symptoms. Patient is partially oriented in time person and place. She says that she is in a [facility] or a hospital. She doesn't know the name. He doesn't know the name of the sitter. Patient says that we are either in June or July 2016. She knows the president of [facility]. She can no unaware other reason of her hospitalization. She becomes disorganized and start calling me "you are my assistant education director". She says "this people doesn't want to teach them, they don't want to learn, they just want to cry". Patient seems to be very confused, internally stimulated, also paranoid at times. Her level of attention is decreased, with fluctuation of consciousness, periodically lucidity. Her friend Sagar Berumen, who was present during part of the evaluation, says that at the moment the patient is completely normal, but minutes later she loses her mind. She clarifies that patient lives alone, but she had not is a in the last year she has been having some memory problems and she has been functioning at a lower level. Recently she is stopped driving. 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 The patient denies the use of illicit drugs and alcohol. Patient stated that she has been taking Xanax for anxiety, but she feels in quantifying the doses and potential abuse. Review of Systems Constitutional: DENIES: Diaphoretic episodes, Fatigue, Fever, Weight gain, Weight loss, Chills, Dizziness, Change in appetite, Night Sweats Endocrine: DENIES: Abnorml menstrual pattern, Heat/cold intolerance, Polydipsia , Polyuria, Polyphagia Eyes: DENIES: Blurred vision, Diplopia, Eye inflammation, Eye pain, Vision loss , Photosensitivity, Double Vision Ears, nose, mouth, throat: DENIES: Tinnitus, Hearing loss, Vertigo, Nasal discharge, Oral lesions, Throat pain, Hoarseness, Ear Pain, Running Nose, Epistaxis, Sinus Pain, Toothache, Odynophagia Respiratory: DENIES: Apneas, Cough, Snoring, Wheezing, Hemoptysis, Sputum production, Shortness of breath Cardiovascular: DENIES: Chest pain, Palpitations, Syncope, Dyspnea on Exertion , PND, Lower Extremity Edema, Orthopnea, Claudication Gastrointestinal: DENIES: Abdominal pain, Black stools, Bloody stools, Constipation, Diarrhea, Nausea, Vomiting, Difficulty Swallowing, Anorexia Genitourinary: DENIES: Abnormal vaginal bleeding, Dysmenorrhea, Dyspareunia, Sexual dysfunction, Urinary frequency, Urinary incontinence, Urgency, Hematuria , Dysuria, Nocturia, Vaginal discharge Musculoskeletal: DENIES: Joint pain, Muscle aches, Stiffness, Joint Swelling, Back pain, Neck pain Integumentary: DENIES: Abnormal pigmentation, Pruritus, Rash, Nail changes, Breast masses, Breast skin changes, Nipple discharge Hematologic/lymphatic: DENIES: Bruising, Lymphadenopathy Immunologic/allergic: DENIES: Eczema, Urticaria Neurologic: DENIES: Abnormal gait, Headache, Localized weakness, Paresthesias, Seizures, Speech Problems, Tremor, Poor Balance Psychiatric: COMPLAINS OF: Confusion, DENIES: Anxiety, Mood changes, Depression, Hallucinations, Agitation, Suicidal Ideation, Homicidal Ideation, Delusions Past Family Social History Coded Allergies: Morphine (Verified Allergy, Severe, 07/29/16) Percocet (Verified Allergy, Severe, 07/29/16) Tuberculin PPD (Verified Allergy, Severe, REDNESS, SWELLING, 07/29/16) Uncoded Allergies: TB LUZ TEST (Allergy, Intermediate, REDNESS, SWELLING, 10/02/08) Active Scripts Valsartan (Diovan)160 Mg Nns072 Mg PO DAILY 30 Days Ref 0 Prov:David Hendrix MD 02/10/16 Reported Medications Amlodipine 10 Mg Tab10 Mg PO DAILY #30 TAB Ref 0 07/20/16 Alprazolam (Xanax)1 Mg Tab1 Mg PO BID PRN (ANXIETY) Ref 0 02/06/[address] (Aspirin 81)81 Mg Tabdr81 Mg PO DAILY Ref 0 02/06/16 Atorvastatin 40 Mg Tab40 Mg PO HS #30 TAB Ref 0 02/06/16 Brimonidine Opth Drops 0.2% Soln1 Drop EACH EYE BID #1 BOTTLE Ref 0 02/06/16 Clonidine 0.1 Mg Tab0.1 Mg PO TID PRN (Elevated B/P) #60 TAB Ref 0 02/06/16 Clopidogrel (Plavix)75 Mg Tab75 Mg PO DAILY #30 TAB Ref 0 02/06/16 Potassium Chloride ER (Klor-Con 8)8 Meq Tab8 Meq PO DAILY #30 TAB Ref 0 02/06/16 Dorzolamide-Timolol Opth Drops (Cosopt Opth Drops)22.3-6.8 Mg/Ml Soln1 Drop EACH EYE BID #1 BOTTLE Ref 0 02/06/16 Current Medications Medications (Trade) Dose Ordered Sig/Solomon Route Start Time Stop Time Status Last Admin (NS Flush) 2 ml BID IV FLUSH 07/29/16 21:00 07/29/16 21:00 (NS Flush) 2 ml UNSCH PRN IV FLUSH 07/29/16 11:45 (Vasotec Inj) 1.25 mg Q4H PRN IV 07/29/16 11:45 (Aspirin Chew) 81 mg DAILY PO 07/30/16 09:00 07/30/16 08:05 (NovoLOG SUPPLEMENTAL SCALE) 1 ACHS SQ 07/29/16 16:00 (D50w (Vial) Inj) 50 ml UNSCH PRN IV PUSH 07/29/16 11:45 (Glucagon Inj) 1 mg UNSCH PRN OTHER 07/29/16 11:45 Enoxaparin Sodium 30 mg 30 mg Q24H SQ 07/29/16 12:00 07/30/16 11:22 Sodium Chloride 1,000 ml @ 75 mls/hr [id number] IV 07/29/16 13:38 07/30/16 00:39 (Keppra 1000 Mg Inj) 100 ml @ 400 mls/hr Q12H IV 07/30/16 05:00 07/30/16 06:42 (Lipitor) 40 mg HS PO 07/29/16 21:00 07/30/16 00:38 (Alphagan 0.2% Opth Soln) 1 drop BID EACH EYE 07/29/16 21:00 07/30/16 08:05 (Plavix) 75 mg DAILY PO 07/30/16 09:00 07/30/16 08:05 (Cosopt 2-0.5% Opth Soln) 1 drop BID EACH EYE 07/29/16 21:00 07/30/16 08:05 (Xanax) 0.25 mg Q6HR PRN PO 07/30/16 08:15 07/30/16 09:56 (SEROquel) 25 mg BID@09,12 PO 07/30/16 12:00 07/30/16 11:22 Divalproex Sodium 500 mg 500 mg BID PO 07/30/16 09:45 07/30/16 11:34 (Zovirax Inj/NS Inj) 100 ml @ 100 mls/hr Q8H IV 07/30/16 11:00 07/30/16 11:22 Family History Her mother had dementia Social History Patient was born and raised in [place], she lives alone in [place], she is single, she used to be an [employer] nurse Patient's Strengths (min. 2) Level of education Physical Exam No EPS, no tremors, no withdrawal symptoms present at this moment Vital Signs Vital Signs Date Time Temp Pulse Resp B/P Pulse Ox O2 Delivery O2 Flow Rate FiO2 07/30/16 10:00 64 07/30/16 08:00 99.3 14 139/73 96 07/29/16 20:43 21 07/29/16 12:34 Room Air I/O 07/29/16 07/29/16 07/30/16 08:00 16:00 00:00 Intake Total 1000 ml Output Total 1150 ml Balance -150 ml Lab Results Laboratory Tests Test 07/29/16 07/29/16 07/29/16 07/29/16 06:30 07:45 14:36 16:43 White Blood Count 3.2 Red Blood Count 3.53 Hemoglobin 10.2 Bedside Hemoglobin 10.5 Hematocrit 30.5 Bedside Hematocrit 31.0 Mean Corpuscular Volume 86.4 Mean Corpuscular Hemoglobin 29.0 Mean Corpuscular Hemoglobin 33.6 Concent Red Cell Distribution Width 15.3 Platelet Count 312 Mean Platelet Volume 7.3 Neutrophils (%) (Auto) 37.1 Lymphocytes (%) (Auto) 44.0 Monocytes (%) (Auto) 13.0 Eosinophils (%) (Auto) 5.3 Basophils (%) (Auto) 0.6 Neutrophils # (Auto) 1.2 Lymphocytes # (Auto) 1.4 Monocytes # (Auto) 0.4 Eosinophils # (Auto) 0.2 Basophils # (Auto) 0.0 CBC Comment DIFF FINAL Differential Comment Prothrombin Time 10.9 Prothromb Time International 1.0 Ratio Activated Partial 32.9 Thromboplast Time Bedside Sodium 142 Sodium Level 141 Bedside Potassium 3.6 Potassium Level 3.6 Bedside Chloride 103 Chloride Level 106 Carbon Dioxide Level 26.8 Anion Gap 8 Bedside Blood Urea Nitrogen 12 Blood Urea Nitrogen 11 Creatinine 0.91 Bedside Creatinine 0.9 Estimat Glomerular Filtration 73 Rate Bedside Glucose 99 Random Glucose 97 Hemoglobin A1c 5.7 Calcium Level 8.9 Total Bilirubin 0.3 Aspartate Amino Transf 13 (AST/SGOT) Alanine Aminotransferase 17 (ALT/SGPT) Alkaline Phosphatase 65 Total Creatine Kinase 117 Troponin I LESS THAN 0.02 Total Protein 7.6 Albumin 3.5 Urine Color LIGHT-YELLOW Urine Turbidity CLEAR Urine pH 6.0 Urine Specific Sebastian 1.039 Urine Protein NEG Urine Glucose (UA) NEG Urine Ketones NEG Urine Occult Blood NEG Urine Nitrite NEG Urine Bilirubin NEG Urine Urobilinogen LESS THAN 2.0 Urine Leukocyte Esterase NEG Urine RBC LESS THAN 1 Urine WBC 1 Urine Mucus FEW Microscopic Urinalysis Comment CATH-CULT NOT IND Triglycerides Level 90 Cholesterol Level 192 LDL Cholesterol 129 HDL Cholesterol 45.3 Cholesterol/HDL Ratio 4.23 Vitamin B12 Level 658 Free Thyroxine 0.94 Thyroid Stimulating Hormone 0.249 3rd Gen Erythrocyte Sedimentation Rate 53 Result Diagram: 07/29/1662907/29/16629 Imaging Last Impressions Brain MRI 07/29/16 1338 Signed Impressions: Service Date/Time: July 16:00 - CONCLUSION: 1. No acute intracranial abnormality is identified. There are no findings to indicate recent ischemia. 2. Chronic changes include mild cerebral atrophy and periventricular and subcortical white matter signal changes characteristic of chronic microvascular ischemia. Jhon Bach MD Neck CTA 07/29/16629 Signed Impressions: Service Date/Time: July 06:43 - CONCLUSION: 1. Mild atherosclerotic disease in the carotid bulbs bilaterally but there is no associated luminal narrowing. 2. There is a 13 mm right thyroid nodule. Jhon Bach MD Head CTA 07/29/16629 Signed Impressions: Service Date/Time: July 06:43 - CONCLUSION: Atherosclerotic disease without evidence of high-grade stenosis or aneurysm. Thyroid nodules. Betito Gardner MD Head CT 07/29/16629 Signed Impressions: Service Date/Time: July 06:32 - CONCLUSION: Stable brain. No acute intracranial findings Jhon Dixon MD Chest X-Ray 07/29/16629 Signed Impressions: Service Date/Time: July 06:52 - CONCLUSION: No acute disease Jhon Dixon MD Mental Status Examination Appearance elderly woman, she appears younger than his stated age, good hygiene, [facility], she is calm, superficially cooperative, very confused Speech: Hesitant Orientation: Person, Place (partially), Time (partially) Thought Process: Goal Directed, Loose Association Thought Content: Paranoid Hallucination Type: None Attention Remarks Attention seems to be impaired Suicidal Ideation: No Homicidal Ideation: No Previous Homicide Attempts: No Insight: Fair Affect if Inappropriate: Labile Mood: Appropriate Motor Activity: Normal gait Assessment & Plan Problem List: (1) Delirium due to another medical condition Assessment & Plan: On psychiatric evaluation today patient is partially cooperative, soft restrained in upper extremities, for most of the evaluation she is calm, but episodically agitated and confused with periods of lucidity. Patient is partially oriented in time and place. She denies depressive symptoms , she denies acute anxiety, she denies perceptual disturbances, she denies suicidal or homicidal ideation, she denies visual and auditory hallucinations. She has prominent confusion, attention deficit, fluctuation of consciousness alternated with a logical and coherent thinking. This presentation seems to be congruent with delirium most probably related with underlying medical conditions. Post ictal confusion/psychosis is highly suspected, EEG shows epileptogenic activity. Agree with neurology, encephalopathy needs carefully rule out. Another potential source of delirium/seizures is benzodiazepine withdrawal with potential history of Xanax abuse. Order CIWA protocol. Watch closely withdrawal symptoms. Agree with Seroquel 25 mg twice a day, could increase to 50 mg twice a day if patient can tolerate. Haldol 2 mg IM/IV every 6 hours when necessary aggressive behavior and agitation can be given. We'll follow-up. ICD Code: F05 Assessment & Plan Estimated LOS: Beau Thompson MD Jul 30, 2016 13:58
--- NOTE | 2016-07-30 14:20 | HHI.PR ---
Subjective Remarks Acute delirium. Her sister reports that this occurred starting this morning. She reports her sister was more lucid yesterday. The patient is trying to escape from the hospital. She is incoherent and incapable of appropriate judgment. She has not had episodes like this in the past. There may be mild dementia at baseline as sister reports that she'll frequently repeat the same things when the conversation; and this is going on for about a year. Potential for postictal state also exists. No evidence of CVA on MRI imaging. Objective Vital Signs Date Time Temp Pulse Resp B/P Pulse Ox O2 Delivery O2 Flow Rate FiO2 07/30/16 10:00 64 07/30/16 08:00 99.3 82 14 139/73 96 07/30/16 08:00 60 07/30/16 06:00 62 07/30/16 04:00 52 07/30/16 04:00 99.3 80 34 151/82 71 07/30/16 02:00 53 07/30/16 00:00 52 07/30/16 00:00 98.9 56 18 135/86 100 07/29/16 22:00 59 07/29/16 20:43 99 21 07/29/16 20:00 55 07/29/16 20:00 99.2 60 28 86 07/29/16 18:34 62 07/29/16 17:01 58 18 146/72 98 I/O 07/29/16 07/29/16 07/29/16 07/30/16 07/30/16 07/30/16 07:00 15:00 23:00 07:00 15:00 23:00 Intake Total 1000 ml 795 ml Output Total 1150 ml Balance -150 ml 795 ml Intake Oral 700 ml 355 ml IV Total 300 ml 440 ml Output Urine Total 1150 ml # Voids 3 # Bowel Movements 2 0 Result Diagram: 07/29/16 0630 07/30/16 0453 Imaging Last Impressions Brain MRI 07/29/16 1618 Signed Impressions: Service Date/Time: July 16:00 - CONCLUSION: 1. No acute intracranial abnormality is identified. There are no findings to indicate recent ischemia. 2. Chronic changes include mild cerebral atrophy and periventricular and subcortical white matter signal changes characteristic of chronic microvascular ischemia. Jhon Bach MD Neck CTA 07/29/16629 Signed Impressions: Service Date/Time: July 06:43 - CONCLUSION: 1. Mild atherosclerotic disease in the carotid bulbs bilaterally but there is no associated luminal narrowing. 2. There is a 13 mm right thyroid nodule. Jhon Bach MD Head CTA 07/29/16629 Signed Impressions: Service Date/Time: July 06:43 - CONCLUSION: Atherosclerotic disease without evidence of high-grade stenosis or aneurysm. Thyroid nodules. Betito Gardner MD Head CT 07/29/16629 Signed Impressions: Service Date/Time: July 06:32 - CONCLUSION: Stable brain. No acute intracranial findings Jhon Dixon MD Chest X-Ray 07/29/16629 Signed Impressions: Service Date/Time: July 06:52 - CONCLUSION: No acute disease Jhon Dixon MD Objective Remarks GENERAL: NAD, A&Ox1, paranoid. SKIN: Warm and dry. HEAD: Normocephalic. EYES: No scleral icterus. No injection or drainage. NECK: Supple, trachea midline. No JVD or lymphadenopathy. CARDIOVASCULAR: Regular rate and rhythm without murmurs, gallops, or rubs. RESPIRATORY: Breath sounds equal bilaterally. No accessory muscle use. GASTROINTESTINAL: Abdomen soft, non-tender, nondistended. MUSCULOSKELETAL: No cyanosis, or edema. Medications and IVs Administered Medications Medications (Trade) Dose Ordered Sig/Solomon Route PRN Reason Start Time Stop Time Status Last Admin Dose Admin IV Flush (NS Flush) 2 ml BID IV FLUSH 07/29/16 21:00 07/29/16 21:00 Aspirin (Aspirin Chew) 81 mg DAILY PO 07/30/16 09:00 07/30/16 08:05 Enoxaparin Sodium 30 mg 30 mg Q24H SQ 07/29/16 12:00 07/30/16 11:22 Sodium Chloride 1,000 ml @ 75 mls/hr [id number] IV 07/29/16 13:38 07/30/16 00:39 Levetriacetam (Keppra 1000 Mg Inj) 100 ml @ 400 mls/hr Q12H IV 07/30/16 05:00 07/30/16 06:42 Atorvastatin Calcium (Lipitor) 40 mg HS PO 07/29/16 21:00 07/30/16 00:38 Brimonidine Tartrate (Alphagan 0.2% Opth Soln) 1 drop BID EACH EYE 07/29/16 21:00 07/30/16 08:05 Clopidogrel Bisulfate (Plavix) 75 mg DAILY PO 07/30/16 09:00 07/30/16 08:05 Dorzolamide/ Timolol (Cosopt 2-0.5% Opth Soln) 1 drop BID EACH EYE 07/29/16 21:00 07/30/16 08:05 Alprazolam (Xanax) 0.25 mg Q6HR PRN PO aggitation or anxiety 07/30/16 08:15 07/30/16 09:56 Quetiapine Fumarate (SEROquel) 25 mg BID@09,12 PO 07/30/16 12:00 07/30/16 11:22 Divalproex Sodium 500 mg 500 mg BID PO 07/30/16 09:45 07/30/16 11:34 Acyclovir Sodium/ Sodium Chloride (Zovirax Inj/NS Inj) 100 ml @ 100 mls/hr Q8H IV 07/30/16 11:00 07/30/16 11:22 A/P Problem List: (1) Delirium due to another medical condition ICD Code: F05 Assessment and Plan Assessment and plan 76 year old female admitted with weakness. Acute onset of delirium. MRI is negative for evidence of CVA. Patient is attempting to leave the hospital. Her mental state demonstrates incoherence/incompetence. Poor judgment at this time. She is at risk for hurting herself. She is provided with Haldol. Psych consult placed. Neurology is following. EEG is pending but could not be done in her present state. Restraints are placed to protect the patient from self- harm. Next Acute delirium Etiology not yet clear. Possible seizure with postictal state EEG plan. CVA does not appear to be present. Restraints will be used if patient is at risk to harm herself The situation is discussed with family member, present at bedside, and family member (sister, who is her medical decision maker) agrees with this treatment plan. History of an ascending aortic aneurysm Once patient is more stable this will be reimaged CHF Latest ejection fraction is 45-50% No evidence of exacerbation No symptoms Follow clinically Chronic kidney disease stage III Follow renal function Avoid nephrotoxins Coronary artery disease Continue Plavix Continue aspirin Hyperlipidemia Continue atorvastatin Hypertension Given no evidence of CVA blood pressure medications will be resumed Follow blood pressures Resume baseline treatments DVT prophylaxis SCDs Anticoagulants at this time her risk for bleed as patient is attempting to get out of bed and leave the hospital Gonzalo Cervantes MD Jul 30, 2016 2:19 pm
[2016-07-30] MEDS: ALPRAZolam 0.25 MG TAB PO PRN (19:30)
[2016-07-31] VITALS (11 sets, daily range): BP systolic 140–166; BP diastolic 83–107; PULSE 74–116; RESP 18–31; TEMP 98.2–99; O2SAT 95–100
[2016-07-31] MEDS: cloNIDine HCL 0.1 MG TAB PO PRN ×2 (00:13→14:19)
[2016-07-31 04:23] LABS: HEMATOCRIT 33.2 % (35.0-46.0); MEAN CELL VOLUME 86.4 FL (80.0-100.0); MEAN CORPUSCULAR HEMOGLOBIN 29.2 PG (27.0-34.0); MEAN CORPUSCULAR HGB CONC 33.7 % (32.0-36.0); PLATELET COUNT 328 TH/MM3 (150-450); RED BLOOD COUNT 3.84 MIL/MM3 (4.00-5.30); RED CELL DISTRIBUTION WIDTH 15.2 % (11.6-17.2); REVIEW FLAG FINAL; WHITE BLOOD COUNT 6.6 TH/MM3 (4.0-11.0)
[2016-07-31] MEDS: levETIRAcetam 1000 MG INJ 100 ML IV SCH ×2 (04:33→16:33)
[2016-07-31] MEDS: SODIUM CHLORIDE 0.9% IV SCH ×3 (04:33→19:18)
[2016-07-31] MEDS: SODIUM CHLOR 0.9% 1000 ML INJ 1,000 ML IV SCH ×2 (04:33→16:34)
[2016-07-31] MEDS: ACYCLOVIR IV SCH ×3 (04:33→19:18)
[2016-07-31 04:39] LABS: BICARBONATE 21.7 MEQ/L (21.0-32.0); POTASSIUM 3.3 MEQ/L (3.5-5.1)
[2016-07-31] MEDS: INSULIN ASPART SUPPLEMENTAL SCALE SQ SCH ×4 (04:42→21:00)
[2016-07-31] MEDS ORDERED: POTASSIUM CHLORIDE 10 MEQ CONTROLLED RELEASE TAB PO ONE (08:00)
[2016-07-31] MEDS: DIVALPROEX SODIUM E.R. 500 MG TAB PO SCH ×2 (08:23→23:24)
[2016-07-31] MEDS: CLOPIDOGREL 75 MG TAB PO SCH (08:23)
[2016-07-31] MEDS: VALSARTAN 160 MG TAB PO SCH (08:23)
[2016-07-31] MEDS: ASPIRIN EC 81 MG TABEC PO SCH (08:23)
[2016-07-31] MEDS: QUEtiapine FUMARATE 25 MG TAB PO SCH ×2 (08:23→11:48)
[2016-07-31] MEDS: DORZOLAMIDE/TIMOLOL OPTH SOLN 10 ML BTL EACH EYE SCH (08:24)
[2016-07-31] MEDS: BRIMONIDINE TARTRATE 0.2% OPHT SOLN 5 ML BTL EACH EYE SCH (08:24)
[2016-07-31] MEDS: SODIUM CHLORIDE 0.9% FLUSH 5 ML FLUSH IV FLUSH SCH ×2 (08:24→23:26)
[2016-07-31] MEDS: POTASSIUM CHLORIDE 8 MEQ CONTROLLED RELEASE TAB PO SCH (08:24)
--- NOTE | 2016-07-31 10:57 | HHI.PR ---
Subjective Remarks Patient is more cooperative. She is aware enough now to recognize that she has confusion. This is an improvement compared to yesterday. She is still alert and oriented 1 (self) and only briefly recognize that she was at [facility]. Objective Vital Signs Date Time Temp Pulse Resp B/P Pulse Ox O2 Delivery O2 Flow Rate FiO2 07/31/16 08:55 100 21 07/31/16 08:00 99.0 76 18 166/93 95 07/31/16 08:00 76 07/31/16 06:00 82 07/31/16 04:00 85 07/31/16 04:00 98.2 108 31 161/98 96 07/31/16 02:00 116 07/31/16 00:00 98.9 75 24 163/107 07/31/16 00:00 74 07/30/16 22:00 92 07/30/16 20:00 94 07/30/16 20:00 98.4 94 37 100 07/30/16 19:55 100 07/30/16 18:00 76 07/30/16 16:00 91 26 98 07/30/16 16:00 91 07/30/16 16:00 91 07/30/16 15:33 81 22 139/85 100 07/30/16 15:33 81 22 139/85 100 07/30/16 15:33 81 07/30/16 15:33 81 07/30/16 15:33 81 07/30/16 14:00 82 97 07/30/16 14:00 82 07/30/16 14:00 82 07/30/16 14:00 82 07/30/16 14:00 82 97 07/30/16 12:00 69 07/30/16 12:00 69 07/30/16 12:00 69 100 07/30/16 12:00 69 07/30/16 12:00 69 100 I/O 07/30/16 07/30/16 07/30/16 07/31/16 07/31/16 07/31/16 07:00 15:00 23:00 07:00 15:00 23:00 Intake Total 795 ml 1143 ml 1592 ml 721 ml Output Total 800 ml 0 ml Balance 795 ml 343 ml 1592 ml 721 ml Intake Oral 355 ml 520 ml 355 ml IV Total 440 ml 623 ml 1237 ml 721 ml Output Urine Total 800 ml Stool Total 0 ml # Voids 3 2 1 2 # Bowel Movements 0 3 Result Diagram: 07/31/16 03007/31/16 030 Objective Remarks GENERAL: NAD, A&Ox1, paranoid. SKIN: Warm and dry. HEAD: Normocephalic. EYES: No scleral icterus. No injection or drainage. NECK: Supple, trachea midline. No JVD or lymphadenopathy. CARDIOVASCULAR: Regular rate and rhythm without murmurs, gallops, or rubs. RESPIRATORY: Breath sounds equal bilaterally. No accessory muscle use. GASTROINTESTINAL: Abdomen soft, non-tender, nondistended. MUSCULOSKELETAL: No cyanosis, or edema. A/P Problem List: (1) Delirium due to another medical condition ICD Code: F05 Assessment and Plan Assessment and plan 76 year old female admitted with weakness. Acute onset of delirium. MRI is negative for evidence of CVA. Acute delirium has improved only slightly. Patient will need continued monitoring. She is safe for transfer out of ICU. Acute delirium Etiology not yet clear. Possible seizure with postictal state EEG plan. CVA does not appear to be present. Restraints will be used if patient is at risk to harm herself The situation is discussed with family member, present at bedside, and family member (sister, who is her medical decision maker) agrees with this treatment plan. History of an ascending aortic aneurysm Once patient is more stable this will be reimaged CHF Latest ejection fraction is 45-50% No evidence of exacerbation No symptoms Follow clinically Chronic kidney disease stage III Follow renal function Avoid nephrotoxins Coronary artery disease Continue Plavix Continue aspirin Hyperlipidemia Continue atorvastatin Hypertension Given no evidence of CVA blood pressure medications will be resumed Follow blood pressures Resume baseline treatments DVT prophylaxis SCDs Anticoagulants at this time her risk for bleed as patient is attempting to get out of bed and leave the hospital Gonzalo Cervantes MD Jul 31, 2016 10:57 am
[2016-07-31] MEDS: ENOXAPARIN SODIUM 30 MG/0.3 ML SYRINGE SQ SCH (11:47)
[2016-07-31] MEDS: ALPRAZolam 0.25 MG TAB PO PRN (11:48)
--- NOTE | 2016-07-31 21:27 | MG ---
cc: NASREEN IBARRA Lab No: Date: 07/31/16 Age: 76 Sex: F Race: DATE OF [address] Rouse READING PHYSICIAN Dr. Ibarra MEDICAL HISTORY Mild left-sided headache, difficulty speech, weakness, congestive heart failure, coronary artery disease. MEDICATIONS 1. Aspirin. 2. Plavix. 3. Keppra. 4. Lipitor. 5. Catapres. 6. Acyclovir. DESCRIPTION The background activity is 8-9 Hz alpha, bilateral and symmetrical superimposed by excess beta activity. The EEG recording is contaminated excessive movements and muscle artifact. Photic stimulation did not elicit a driving response. There was no electrographic seizures or epileptiform discharges noted. INTERPRETATION This is a normal awake EEG recording. Excess beta is a nonspecific finding that may be related to medication adverse effects like benzos or barbiturate. Absence of electrographic seizures or epileptiform discharges does not exclude the diagnosis of epilepsy. Clinical correlation is recommended. MD ZAFAR Mckeon/KAI /9:05 PM /9:17 PM MIREILLE
[2016-07-31] MEDS: ATORVASTATIN 40 MG TAB PO SCH (23:24)
[2016-08-01] VITALS (7 sets, daily range): BP systolic 108–176; BP diastolic 77–102; PULSE 65–86; RESP 18–22; TEMP 96.9–98.3; O2SAT 97–99
[2016-08-01] MEDS: DORZOLAMIDE/TIMOLOL OPTH SOLN 10 ML BTL EACH EYE SCH ×3 (01:47→23:12)
[2016-08-01] MEDS: BRIMONIDINE TARTRATE 0.2% OPHT SOLN 5 ML BTL EACH EYE SCH ×3 (01:47→23:12)
[2016-08-01] MEDS: SODIUM CHLOR 0.9% 1000 ML INJ 1,000 ML IV SCH (03:26)
[2016-08-01] MEDS: SODIUM CHLORIDE 0.9% IV SCH ×3 (03:26→18:19)
[2016-08-01] MEDS: ACYCLOVIR IV SCH ×3 (03:26→18:19)
[2016-08-01] MEDS: levETIRAcetam 1000 MG INJ 100 ML IV SCH ×2 (04:48→16:21)
[2016-08-01] MEDS: INSULIN ASPART SUPPLEMENTAL SCALE SQ SCH ×4 (07:00→21:00)
[2016-08-01] MEDS: VALSARTAN 160 MG TAB PO SCH (09:07)
[2016-08-01] MEDS: DIVALPROEX SODIUM E.R. 500 MG TAB PO SCH ×2 (09:08→23:11)
[2016-08-01] MEDS: CLOPIDOGREL 75 MG TAB PO SCH (09:09)
[2016-08-01] MEDS: POTASSIUM CHLORIDE 8 MEQ CONTROLLED RELEASE TAB PO SCH (09:09)
[2016-08-01] MEDS: ASPIRIN EC 81 MG TABEC PO SCH (09:10)
[2016-08-01] MEDS: SODIUM CHLORIDE 0.9% FLUSH 5 ML FLUSH IV FLUSH SCH ×2 (09:10→21:00)
[2016-08-01] MEDS: QUEtiapine FUMARATE 25 MG TAB PO SCH ×2 (09:10→14:08)
--- NOTE | 2016-08-01 10:39 | HHI.PR ---
Subjective Remarks No improvement compared to yesterday. Today patient is either catatonic or refusing to interact. Earlier this morning she had been alert and oriented to self only. Objective Vital Signs Date Time Temp Pulse Resp B/P Pulse Ox O2 Delivery O2 Flow Rate FiO2 08/01/16 10:06 98 21 08/01/16 08:02 97.7 66 18 155/90 99 08/01/16 06:32 98.0 86 18 176/95 99 08/01/16 00:58 98.2 78 18 138/102 99 07/31/16 21:11 98.7 76 18 140/91 99 07/31/16 16:00 98.2 89 20 148/83 95 07/31/16 16:00 106 07/31/16 14:00 107 07/31/16 12:00 88 07/31/16 12:00 98.8 88 20 162/98 98 I/O 07/31/16 07/31/16 07/31/16 08/01/16 08/01/16 08/01/16 07:00 15:00 23:00 07:00 15:00 23:00 Intake Total 721 ml 1306 ml 120 ml Balance 721 ml 1306 ml 120 ml Intake Oral 480 ml 120 ml IV Total 721 ml 826 ml # Voids 2 4 4 # Bowel Movements 2 2 Result Diagram: 07/31/16 0309 07/31/16 0309 Objective Remarks GENERAL: NAD, A&Ox1, paranoid. SKIN: Warm and dry. HEAD: Normocephalic. EYES: No scleral icterus. No injection or drainage. NECK: Supple, trachea midline. No JVD or lymphadenopathy. CARDIOVASCULAR: Regular rate and rhythm without murmurs, gallops, or rubs. RESPIRATORY: Breath sounds equal bilaterally. No accessory muscle use. GASTROINTESTINAL: Abdomen soft, non-tender, nondistended. MUSCULOSKELETAL: No cyanosis, or edema. A/P Problem List: (1) Delirium due to another medical condition ICD Code: F05 Assessment and Plan Assessment and plan 76 year old female admitted with weakness. Acute onset of delirium. MRI is negative for evidence of CVA. Acute delirium remains. No improvement since yesterday. Further monitoring necessary. Monitor for evidence of withdrawal. No evidence of withdrawal at this time. Low-dose Xanax, previously provided to augment any baseline withdrawal, will be discontinued. Acute delirium Etiology not yet clear. Possible seizure with postictal state EEG plan. CVA does not appear to be present. Restraints will be used if patient is at risk to harm herself The situation is discussed with family member, present at bedside, and family member (sister, who is her medical decision maker) agrees with this treatment plan. History of an ascending aortic aneurysm Once patient is more stable this will be reimaged CHF Latest ejection fraction is 45-50% No evidence of exacerbation No symptoms Follow clinically Chronic kidney disease stage III Follow renal function Avoid nephrotoxins Coronary artery disease Continue Plavix Continue aspirin Hyperlipidemia Continue atorvastatin Hypertension Given no evidence of CVA blood pressure medications will be resumed Follow blood pressures Resume baseline treatments DVT prophylaxis SCDs Anticoagulants at this time her risk for bleed as patient is attempting to get out of bed and leave the hospital Gonzalo Cervantes MD Aug 01, 2016 10:39
[2016-08-01] MEDS: ENOXAPARIN SODIUM 30 MG/0.3 ML SYRINGE SQ SCH (11:03)
[2016-08-01 12:36] LABS: BICARBONATE 22.8 MEQ/L (21.0-32.0); POTASSIUM 3.1 MEQ/L (3.5-5.1)
--- NOTE | 2016-08-01 14:56 | HM ---
Date Performed: 07/29/2016 Time Performed: 20:14:00 HOOKUP DATE: 07/29/16 08:14:00 PM Radha ANALYSIS START TIME: 07/29/2016 8:19:00 PM ANALYSIS END TIME: 07/30/2016 8:23:00 PM PATIENT AGE: 76 PATIENT HEIGHT PATIENT WEIGHT DRUG LIST PATIENT DIAGNOSIS: MEDICAL/EVAC TEST NARRATIVE: The patient's average heart rate was 72 BPM. Heart rates greater than 120 B PM were noted 2% of the time. Heart rates less than 50 BPM were noted 1% of the time. No pauses exceeding 2.0 seconds were noted. 185 ventricular ectopics, which represented < 1% of the total b eat count, were noted. The highest ventricular ectopic frequency occurred from 07:00 PM to 08:00 PM Fri. During this time 37 VE(s) occurred. Ventricular ectopics were observed as 177 isolated beat(s) and as 4 couplet(s). No runs were noted. 927 supraventricular ectopics, which represented 1% of the total beat count, were noted. The highest supraventricular ectopic frequency occurred from 08:0 0 PM to 09:00 PM Radha. During this time 209 SVE(s) occurred. Multiple episodes of ST depression ( defined as -1.0 mm or more) were noted in channel 1. The maximum depression of -4.7 mm occurred at 05:55:59 PM Fri. Multiple episodes of ST depression (defined as -1.0 mm or more) were noted in matos rafa 2. The maximum depression of -2.7 mm occurred at 05:23:04 PM Fri. No episodes of ST depression (defined as -1.0 mm or more) were noted in channel 3. TEST INTERPRETATION: At some point patient took off holter monitor and it was reapplied at 1615. This is not a full 24-hour disclosure. Overall this patient has occasional ventricular ectopy with 4 couplets but no triplets or runs of ventricular ectopy. There is fairly frequent isolated PACs with rare to occasional couplets and 8 runs of 3 and 4 beats of Supraventricular beats at rates between 14 0 and 170 that all self terminate. No atrial fibrillation is seen. No pauses are seen. No significant heart block is seen, however the QRS complex is somewhat wide. No patient diary included. Overall, t his patient has some atrial ectopy with runs of 3 and 4 beats at a fairly rapid rate but all self-ter minate with no prolonged pauses and no sign of atrial fibrillation. Rare ventricular ectopy is presen t. Signed by : Lenin Paulino
--- NOTE | 2016-08-01 15:16 | HHI.PR ---
Review/Management Diagnosis encephalopathy, resolving History of stroke with no residual deficit Possible post ictal state, given the initial abnormal EEG Followup EEG is within normal and unremarkable Plan neuro checks every 4 hourly Continue valproic acid 500 mg twice daily Keppra 1 g twice daily seizure precautions Fall precautions DVT prophylaxis Continue supportive care by attending team Diagnosis/Plan: Subjective Subjective Comments No acute events reported Patient is calm in bed with no complaints girlfriend at bedside Denies headache, blurred vision EEG is unremarkable MRI brain is unremarkable with no acute intracranial findings valproic level is therapeutic, 61 Active Medications Current Medications Medications (Trade) Dose Ordered Sig/Solomon Route Start Time Stop Time Status Last Admin (NS Flush) 2 ml BID IV FLUSH 07/29/16 21:00 07/31/16 23:26 (NS Flush) 2 ml UNSCH PRN IV FLUSH 07/29/16 11:45 (Vasotec Inj) 1.25 mg Q4H PRN IV 07/29/16 11:45 (NovoLOG SUPPLEMENTAL SCALE) 1 ACHS SQ 07/29/16 16:00 (D50w (Vial) Inj) 50 ml UNSCH PRN IV PUSH 07/29/16 11:45 (Glucagon Inj) 1 mg UNSCH PRN OTHER 07/29/16 11:45 Enoxaparin Sodium 30 mg 30 mg Q24H SQ 07/29/16 12:00 08/01/16 11:03 Sodium Chloride 1,000 ml @ 75 mls/hr [id number] IV 07/29/16 13:38 08/01/16 03:26 (Keppra 1000 Mg Inj) 100 ml @ 400 mls/hr Q12H IV 07/30/16 05:00 08/01/16 04:48 (Lipitor) 40 mg HS PO 07/29/16 21:00 07/31/16 23:24 (Alphagan 0.2% Opth Soln) 1 drop BID EACH EYE 07/29/16 21:00 08/01/16 09:11 (Plavix) 75 mg DAILY PO 07/30/16 09:00 08/01/16 09:09 (Cosopt 2-0.5% Opth Soln) 1 drop BID EACH EYE 07/29/16 21:00 08/01/16 09:11 (SEROquel) 25 mg BID@,12 PO 07/30/16 12:00 08/01/16 14:08 Divalproex Sodium 500 mg 500 mg BID PO 07/30/16 09:45 08/01/16 09:08 (Zovirax Inj/NS Inj) 100 ml @ 100 mls/hr Q8H IV 07/30/16 11:00 08/01/16 11:08 (Norvasc) 10 mg DAILY PO 07/31/16 09:00 08/01/16 09:07 (Ecotrin Ec) 81 mg DAILY PO 07/31/16 09:00 08/01/16 09:10 (Catapres) 0.1 mg TID PRN PO 07/30/16 14:30 07/31/16 14:19 (KCl) 8 meq DAILY PO 07/31/16 09:00 08/01/16 09:09 (Diovan) 160 mg DAILY PO 07/31/16 09:00 08/01/16 09:07 Allergies Allergies Coded Allergies Morphine (Verified Allergy, Severe, 07/29/16) Percocet (Verified Allergy, Severe, 07/29/16) Tuberculin PPD (Verified Allergy, Severe, REDNESS, SWELLING, 07/29/16) Uncoded Allergies TB LUZ TEST ( Allergy, Intermediate, REDNESS, SWELLING, 10/02/08) Exam I&O / VS 07/31/16 07/31/16 08/01/16 15:00 23:00 07:00 Intake Total 1306 ml 120 ml Balance 1306 ml 120 ml Intake Oral 480 ml 120 ml IV Total 826 ml # Voids 4 4 # Bowel Movements 2 2 Vital Signs Date Time Temp Pulse Resp B/P Pulse Ox O2 Delivery O2 Flow Rate FiO2 08/01/16 12:22 96.9 65 18 170/98 98 08/01/16 10:06 98 21 08/01/16 08:02 97.7 66 18 155/90 99 08/01/16 06:32 98.0 86 18 176/95 99 08/01/16 00:58 98.2 78 18 138/102 99 07/31/16 21:11 98.7 76 18 140/91 99 07/31/16 16:00 98.2 89 20 148/83 95 07/31/16 16:00 106 General: Alert and Oriented, No acute distress Eye: PERRL, Normal conjuctiva, Vision unchanged Respiratory: Lungs CTA, Non-labored respirations Cardiology: Normal rate, Intact pulses Neurologic: Alert, Oriented, Other (alert and oriented, to person, place not to time[Florecita William [place], 2015],upper and lower extremity. Motor system is grossly normal, cranial nerve examination is grossly normal in, no sensory changes) Objective Micro and Labs Laboratory Tests Test 08/01/16 11:58 Sodium Level 141 Potassium Level 3.1 Chloride Level 109 Carbon Dioxide Level 22.8 Anion Gap 9 Blood Urea Nitrogen 7 Creatinine 0.55 Estimat Glomerular Filtration 131 Rate Random Glucose 104 Calcium Level 8.5 Valproic Acid (Depakene) Level 61 Destiny Ibarra MD Aug 01, 2016 15:16
[2016-08-01] MEDS ORDERED: IBUPROFEN 600 MG TAB PO ONE (18:00)
[2016-08-01] MEDS: ATORVASTATIN 40 MG TAB PO SCH (23:11)
[2016-08-02] VITALS (7 sets, daily range): BP systolic 134–175; BP diastolic 88–100; PULSE 71–84; RESP 18; TEMP 97.2–99; O2SAT 96–99
[2016-08-02] MEDS ORDERED: IBUPROFEN 600 MG TAB PO ONE (01:30)
[2016-08-02] MEDS: SODIUM CHLORIDE 0.9% IV SCH ×3 (02:17→18:44)
[2016-08-02] MEDS: SODIUM CHLOR 0.9% 1000 ML INJ 1,000 ML IV SCH ×2 (02:17→11:38)
[2016-08-02] MEDS: ACYCLOVIR IV SCH ×3 (02:17→18:44)
[2016-08-02] MEDS: levETIRAcetam 1000 MG INJ 100 ML IV SCH ×2 (04:36→17:00)
[2016-08-02] MEDS: INSULIN ASPART SUPPLEMENTAL SCALE SQ SCH ×4 (07:00→21:00)
[2016-08-02] MEDS: DIVALPROEX SODIUM E.R. 500 MG TAB PO SCH ×2 (08:38→22:09)
[2016-08-02] MEDS: ASPIRIN EC 81 MG TABEC PO SCH (08:38)
[2016-08-02] MEDS: CLOPIDOGREL 75 MG TAB PO SCH (08:39)
[2016-08-02] MEDS: QUEtiapine FUMARATE 25 MG TAB PO SCH ×2 (08:39→12:12)
[2016-08-02] MEDS: VALSARTAN 160 MG TAB PO SCH (08:39)
--- NOTE | 2016-08-02 08:47 | HHI.PR ---
Subjective Remarks Slight improvement in cognitive status. She has more self control and is more cooperative. Able to be off restraints when family members and friends present. No complaints. Still not oriented to place or time. Objective Vital Signs Date Time Temp Pulse Resp B/P Pulse Ox O2 Delivery O2 Flow Rate FiO2 08/02/16 04:00 98.5 77 18 175/91 96 08/02/16 00:00 99.0 79 18 151/100 97 08/01/16 20:00 98.3 85 22 108/77 98 08/01/16 16:00 97.6 73 18 155/89 97 08/01/16 12:22 96.9 65 18 170/98 98 08/01/16 10:06 98 21 I/O 08/01/16 08/01/16 08/01/16 08/02/16 08/02/16 08/02/16 07:00 15:00 23:00 07:00 15:00 23:00 Intake Total 120 ml 120 ml Balance 120 ml 120 ml Intake Oral 120 ml 120 ml # Voids 4 4 # Bowel Movements 2 1 Result Diagram: 07/31/16 0309 08/01/16 1158 Objective Remarks GENERAL: NAD, A&Ox1, paranoid. SKIN: Warm and dry. HEAD: Normocephalic. EYES: No scleral icterus. No injection or drainage. NECK: Supple, trachea midline. No JVD or lymphadenopathy. CARDIOVASCULAR: Regular rate and rhythm without murmurs, gallops, or rubs. RESPIRATORY: Breath sounds equal bilaterally. No accessory muscle use. GASTROINTESTINAL: Abdomen soft, non-tender, nondistended. MUSCULOSKELETAL: No cyanosis, or edema. A/P Problem List: (1) Delirium due to another medical condition ICD Code: F05 Assessment and Plan Assessment and plan 76 year old female admitted with weakness. Acute onset of delirium. MRI is negative for evidence of CVA. Acute delirium remains. Slight improvements compared to yesterday. Continue supportive care and monitor for improvement. Acute delirium Etiology not yet clear. Possible seizure with postictal state EEG plan. CVA does not appear to be present. Restraints will be used if patient is at risk to harm herself The situation is discussed with family member, present at bedside, and family member (sister, who is her medical decision maker) agrees with this treatment plan. History of an ascending aortic aneurysm Once patient is more stable this will be reimaged CHF Latest ejection fraction is 45-50% No evidence of exacerbation No symptoms Follow clinically Chronic kidney disease stage III Follow renal function Avoid nephrotoxins Coronary artery disease Continue Plavix Continue aspirin Hyperlipidemia Continue atorvastatin Hypertension Given no evidence of CVA blood pressure medications will be resumed Follow blood pressures Resume baseline treatments DVT prophylaxis SCDs Anticoagulants at this time her risk for bleed as patient is attempting to get out of bed and leave the hospital Gonzalo Cervantes MD Aug 02, 2016 08:47
[2016-08-02] MEDS: SODIUM CHLORIDE 0.9% FLUSH 5 ML FLUSH IV FLUSH SCH ×2 (09:00→21:00)
[2016-08-02] MEDS: POTASSIUM CHLORIDE 8 MEQ CONTROLLED RELEASE TAB PO SCH (09:53)
[2016-08-02] MEDS: DORZOLAMIDE/TIMOLOL OPTH SOLN 10 ML BTL EACH EYE SCH ×2 (09:53→22:21)
[2016-08-02] MEDS: BRIMONIDINE TARTRATE 0.2% OPHT SOLN 5 ML BTL EACH EYE SCH ×2 (10:05→22:20)
[2016-08-02] MEDS: ENOXAPARIN SODIUM 30 MG/0.3 ML SYRINGE SQ SCH (12:12)
[2016-08-02] MEDS: ATORVASTATIN 40 MG TAB PO SCH (22:10)
[2016-08-03] VITALS (7 sets, daily range): BP systolic 120–160; BP diastolic 80–96; PULSE 62–84; RESP 18–20; TEMP 97.3–98.8; O2SAT 94–99
[2016-08-03] MEDS: SODIUM CHLORIDE 0.9% IV SCH ×3 (03:09→18:16)
[2016-08-03] MEDS: ACYCLOVIR IV SCH ×3 (03:09→18:16)
[2016-08-03] MEDS: levETIRAcetam 1000 MG INJ 100 ML IV SCH ×2 (05:51→15:52)
[2016-08-03] MEDS: INSULIN ASPART SUPPLEMENTAL SCALE SQ SCH ×4 (07:00→20:18)
[2016-08-03] MEDS: BRIMONIDINE TARTRATE 0.2% OPHT SOLN 5 ML BTL EACH EYE SCH ×2 (08:35→21:23)
[2016-08-03] MEDS: DORZOLAMIDE/TIMOLOL OPTH SOLN 10 ML BTL EACH EYE SCH ×2 (08:35→21:23)
[2016-08-03] MEDS: VALSARTAN 160 MG TAB PO SCH (08:36)
[2016-08-03] MEDS: CLOPIDOGREL 75 MG TAB PO SCH (08:36)
[2016-08-03] MEDS: DIVALPROEX SODIUM E.R. 500 MG TAB PO SCH ×2 (08:36→21:23)
[2016-08-03] MEDS: QUEtiapine FUMARATE 25 MG TAB PO SCH ×3 (08:37→11:17)
[2016-08-03] MEDS: ASPIRIN EC 81 MG TABEC PO SCH (08:37)
[2016-08-03] MEDS: POTASSIUM CHLORIDE 8 MEQ CONTROLLED RELEASE TAB PO SCH (08:37)
[2016-08-03] MEDS: SODIUM CHLOR 0.9% 1000 ML INJ 1,000 ML IV SCH (08:50)
[2016-08-03] MEDS: SODIUM CHLORIDE 0.9% FLUSH 5 ML FLUSH IV FLUSH SCH ×2 (09:00→20:18)
[2016-08-03] MEDS: ENOXAPARIN SODIUM 30 MG/0.3 ML SYRINGE SQ SCH (11:02)
--- NOTE | 2016-08-03 11:19 | HHI.PR ---
Subjective Remarks She is now aware of her location. She is unable to specify the invas tech or the year. This is an improvement from yesterday. Objective Vital Signs Date Time Temp Pulse Resp B/P Pulse Ox O2 Delivery O2 Flow Rate FiO2 08/03/16 08:00 98.0 62 20 160/90 98 08/03/16 06:15 97.3 64 20 120/80 94 08/03/16 00:00 98.8 70 19 125/88 95 08/02/16 20:00 98.2 77 18 153/88 99 08/02/16 16:00 97.2 74 18 134/92 96 08/02/16 14:21 81 08/02/16 12:00 98.5 84 18 144/95 97 I/O 08/02/16 08/02/16 08/02/16 08/03/16 08/03/16 08/03/16 07:00 15:00 23:00 07:00 15:00 23:00 Intake Total 480 ml 710 ml 300 ml Balance 480 ml 710 ml 300 ml Intake Oral 480 ml 400 ml 300 ml IV Total 310 ml # Voids 2 1 2 # Bowel Movements 0 0 Result Diagram: 07/31/16 0309 08/01/16 1158 Objective Remarks GENERAL: NAD, A&Ox2 SKIN: Warm and dry. HEAD: Normocephalic. EYES: No scleral icterus. No injection or drainage. NECK: Supple, trachea midline. No JVD or lymphadenopathy. CARDIOVASCULAR: Regular rate and rhythm without murmurs, gallops, or rubs. RESPIRATORY: Breath sounds equal bilaterally. No accessory muscle use. GASTROINTESTINAL: Abdomen soft, non-tender, nondistended. MUSCULOSKELETAL: No cyanosis, or edema. A/P Problem List: (1) Delirium due to another medical condition ICD Code: F05 Assessment and Plan Assessment and plan 76 year old female admitted with weakness. Acute onset of delirium. MRI is negative for evidence of CVA. Acute delirium remains. Continuing to gradually improve. Now alert and oriented 2. Physical therapy started. Acute delirium Etiology not yet clear. Possible seizure with postictal state EEG plan. CVA does not appear to be present. Restraints will be used if patient is at risk to harm herself The situation is discussed with family member, present at bedside, and family member (sister, who is her medical decision maker) agrees with this treatment plan. History of an ascending aortic aneurysm Once patient is more stable this will be reimaged CHF Latest ejection fraction is 45-50% No evidence of exacerbation No symptoms Follow clinically Chronic kidney disease stage III Follow renal function Avoid nephrotoxins Coronary artery disease Continue Plavix Continue aspirin Hyperlipidemia Continue atorvastatin Hypertension Given no evidence of CVA blood pressure medications will be resumed Follow blood pressures Resume baseline treatments DVT prophylaxis SCDs Anticoagulants at this time her risk for bleed as patient is attempting to get out of bed and leave the hospital Gonzalo Cervantes MD Aug 03, 2016 11:19
[2016-08-03] MEDS: ACETAMINOPHEN 500 MG CPLT PO PRN ×2 (13:49→21:24)
[2016-08-03] MEDS: ATORVASTATIN 40 MG TAB PO SCH (21:24)
[2016-08-04] VITALS (8 sets, daily range): BP systolic 130–167; BP diastolic 79–96; PULSE 74–121; RESP 18; TEMP 97–98.9; O2SAT 95–98
[2016-08-04] MEDS: SODIUM CHLORIDE 0.9% IV SCH ×3 (02:11→18:03)
[2016-08-04] MEDS: ACYCLOVIR IV SCH ×3 (02:11→18:03)
[2016-08-04] MEDS: levETIRAcetam 1000 MG INJ 100 ML IV SCH ×2 (04:05→17:13)
[2016-08-04] MEDS: INSULIN ASPART SUPPLEMENTAL SCALE SQ SCH ×4 (06:03→21:30)
--- NOTE | 2016-08-04 08:43 | PD.CONS ---
Assessment and Plan Assessment Consult received per stroke order set. EMR reviewed. MRI negative for acute stroke. Neurology consult reviewed and indicates encephalopathy. Consult deferred due to no acute stroke. Please reconsult as appropriate. Thank you. Heather Nielson MD Aug 04, 2016 08:43
--- NOTE | 2016-08-04 09:08 | HHI.PR ---
Review/Management Diagnosis encephalopathy, resolved History of stroke with no residual deficit Possible post ictal state, given the initial abnormal EEG Followup EEG is within normal and unremarkable Plan neuro checks every 4 hourly Continue valproic acid 500 mg twice daily Keppra 1 g twice daily Repeat EEG today Ob[place]ain Ammonia level seizure precautions Fall precautions DVT prophylaxis Continue supportive care by attending team Diagnosis/Plan: Subjective Subjective Comments No acute events reported Patient feels better Denies headache, dizziness Moves around without any symptoms of unsteadiness Depakote level is therapeutic 94. Active Medications Current Medications Medications (Trade) Dose Ordered Sig/Solomon Route Start Time Stop Time Status Last Admin (NS Flush) 2 ml BID IV FLUSH 07/29/16 21:00 07/31/16 23:26 (NS Flush) 2 ml UNSCH PRN IV FLUSH 07/29/16 11:45 (Vasotec Inj) 1.25 mg Q4H PRN IV 07/29/16 11:45 (NovoLOG SUPPLEMENTAL SCALE) 1 ACHS SQ 07/29/16 16:00 08/03/16 16:04 (D50w (Vial) Inj) 50 ml UNSCH PRN IV PUSH 07/29/16 11:45 (Glucagon Inj) 1 mg UNSCH PRN OTHER 07/29/16 11:45 Enoxaparin Sodium 30 mg 30 mg Q24H SQ 07/29/16 12:00 08/03/16 11:02 (Keppra 1000 Mg Inj) 100 ml @ 400 mls/hr Q12H IV 07/30/16 05:00 08/04/16 04:05 (Lipitor) 40 mg HS PO 07/29/16 21:00 08/03/16 21:24 (Alphagan 0.2% Opth Soln) 1 drop BID EACH EYE 07/29/16 21:00 08/03/16 21:23 (Plavix) 75 mg DAILY PO 07/30/16 09:00 08/03/16 08:36 (Cosopt 2-0.5% Opth Soln) 1 drop BID EACH EYE 07/29/16 21:00 08/03/16 21:23 (SEROquel) 25 mg BID@09,12 PO 07/30/16 12:00 08/03/16 11:03 Divalproex Sodium 500 mg 500 mg BID PO 07/30/16 09:45 08/03/16 21:23 (Zovirax Inj/NS Inj) 100 ml @ 100 mls/hr Q8H IV 07/30/16 11:00 08/04/16 02:11 (Norvasc) 10 mg DAILY PO 07/31/16 09:00 08/03/16 08:36 (Ecotrin Ec) 81 mg DAILY PO 07/31/16 09:00 08/03/16 08:37 (Catapres) 0.1 mg TID PRN PO 07/30/16 14:30 07/31/16 14:19 (KCl) 8 meq DAILY PO 07/31/16 09:00 08/03/16 08:37 (Diovan) 160 mg DAILY PO 07/31/16 09:00 08/03/16 08:36 (Tylenol) 500 mg Q6H PRN PO 08/03/16 11:30 08/03/16 21:24 Allergies Allergies Coded Allergies Morphine (Verified Allergy, Severe, 07/29/16) Percocet (Verified Allergy, Severe, 07/29/16) Tuberculin PPD (Verified Allergy, Severe, REDNESS, SWELLING, 07/29/16) Uncoded Allergies TB LUZ TEST ( Allergy, Intermediate, REDNESS, SWELLING, 10/02/08) Exam I&O / VS 08/03/16 08/03/16 08/04/16 15:00 23:00 07:00 Intake Total 204 ml Balance 204 ml IV Total 204 ml # Voids 3 4 # Bowel Movements 0 1 Vital Signs Date Time Temp Pulse Resp B/P Pulse Ox O2 Delivery O2 Flow Rate FiO2 08/04/16 08:34 98.1 77 18 164/93 97 08/04/16 07:28 88 08/04/16 04:00 97.5 121 18 130/79 95 08/04/16 00:00 97.6 80 18 131/86 96 08/03/16 20:00 98.3 76 18 157/96 96 08/03/16 20:00 81 08/03/16 16:00 98.4 84 20 159/84 99 08/03/16 12:00 98.4 79 20 126/80 98 08/03/16 10:21 78 General: Alert and Oriented, No acute distress Eye: PERRL, Normal conjuctiva, Vision unchanged Respiratory: Lungs CTA, Non-labored respirations Cardiology: Normal rate, Intact pulses Neurologic: Alert, Oriented, Other (alert and oriented, to person, place not to time[Florecita William [place], 2015],upper and lower extremity. Motor system is grossly normal, cranial nerve examination is grossly normal in, no sensory changes) Objective Micro and Labs Laboratory Tests Test 08/04/16 07:52 Valproic Acid (Depakene) Level 94 Destiny Ibarra MD Aug 04, 2016 09:08
[2016-08-04] MEDS: DIVALPROEX SODIUM E.R. 500 MG TAB PO SCH ×2 (09:09→21:27)
[2016-08-04] MEDS: POTASSIUM CHLORIDE 8 MEQ CONTROLLED RELEASE TAB PO SCH (09:09)
[2016-08-04] MEDS: CLOPIDOGREL 75 MG TAB PO SCH (09:09)
[2016-08-04] MEDS: ASPIRIN EC 81 MG TABEC PO SCH (09:09)
[2016-08-04] MEDS: BRIMONIDINE TARTRATE 0.2% OPHT SOLN 5 ML BTL EACH EYE SCH ×2 (09:09→21:26)
[2016-08-04] MEDS: DORZOLAMIDE/TIMOLOL OPTH SOLN 10 ML BTL EACH EYE SCH ×2 (09:09→21:00)
[2016-08-04] MEDS: VALSARTAN 160 MG TAB PO SCH (09:09)
[2016-08-04] MEDS: SODIUM CHLORIDE 0.9% FLUSH 5 ML FLUSH IV FLUSH SCH ×2 (09:10→21:26)
--- NOTE | 2016-08-04 11:04 | HHI.PR ---
Subjective Remarks Patient is much more cooperative today. She is nearing baseline. Orientation is improving. Objective Vital Signs Date Time Temp Pulse Resp B/P Pulse Ox O2 Delivery O2 Flow Rate FiO2 08/04/16 08:34 98.1 77 18 164/93 97 08/04/16 07:28 88 08/04/16 04:00 97.5 121 18 130/79 95 08/04/16 00:00 97.6 80 18 131/86 96 08/03/16 20:00 98.3 76 18 157/96 96 08/03/16 20:00 81 08/03/16 16:00 98.4 84 20 159/84 99 08/03/16 12:00 98.4 79 20 126/80 98 I/O 08/03/16 08/03/16 08/03/16 08/04/16 08/04/16 08/04/16 07:00 15:00 23:00 07:00 15:00 23:00 Intake Total 300 ml 204 ml Balance 300 ml 204 ml Intake Oral 300 ml IV Total 204 ml # Voids 2 3 4 1 # Bowel Movements 0 0 1 Result Diagram: 07/31/16 0309 08/01/16 1158 Objective Remarks GENERAL: NAD, A&Ox3 SKIN: Warm and dry. HEAD: Normocephalic. EYES: No scleral icterus. No injection or drainage. NECK: Supple, trachea midline. No JVD or lymphadenopathy. CARDIOVASCULAR: Regular rate and rhythm without murmurs, gallops, or rubs. RESPIRATORY: Breath sounds equal bilaterally. No accessory muscle use. GASTROINTESTINAL: Abdomen soft, non-tender, nondistended. MUSCULOSKELETAL: No cyanosis, or edema. A/P Problem List: (1) Delirium due to another medical condition ICD Code: F05 Assessment and Plan Assessment and plan 76 year old female admitted with weakness. Acute onset of delirium. MRI is negative for evidence of CVA. Improving to time. She is now alert and oriented 3, but still has some forgetfulness. I will discuss her current personality with the family to see if she has returned to baseline Acute delirium Etiology not yet clear. Possible seizure with postictal state EEG plan. CVA does not appear to be present. Restraints will be used if patient is at risk to harm herself The situation is discussed with family member, present at bedside, and family member (sister, who is her medical decision maker) agrees with this treatment plan. History of an ascending aortic aneurysm Once patient is more stable this will be reimaged CHF Latest ejection fraction is 45-50% No evidence of exacerbation No symptoms Follow clinically Chronic kidney disease stage III Follow renal function Avoid nephrotoxins Coronary artery disease Continue Plavix Continue aspirin Hyperlipidemia Continue atorvastatin Hypertension Given no evidence of CVA blood pressure medications will be resumed Follow blood pressures Resume baseline treatments DVT prophylaxis SCDs Anticoagulants at this time her risk for bleed as patient is attempting to get out of bed and leave the hospital Gonzalo Cervantes MD Aug 04, 2016 11:04
[2016-08-04] MEDS: QUEtiapine FUMARATE 25 MG TAB PO SCH (11:50)
[2016-08-04] MEDS: ENOXAPARIN SODIUM 30 MG/0.3 ML SYRINGE SQ SCH (11:50)
--- NOTE | 2016-08-04 16:44 | MG ---
cc: SUGAR LAM Lab No:[id number] Date: 08/04/16 Age: 76 Sex: F Race: TECHNIQUE 17 channel EEG. DESCRIPTION The background rhythm reveals a symmetrical alpha rhythm, frequency of 8 Hz, amplitude is 10-20 microvolts. No lateralizing features are identified. There is some muscle artifact present. No epileptiform features are seen. Hyperventilation was not done. Photic stimulation was done in a stepwise fashion with a normal driving response. INTERPRETATION Normal EEG. MD JACQUIE Roth/KAI /4:28 PM /4:40 PM
[2016-08-04] MEDS: levETIRAcetam 500 MG TAB PO SCH (21:26)
[2016-08-04] MEDS: ATORVASTATIN 40 MG TAB PO SCH (21:27)
[2016-08-05] VITALS (7 sets, daily range): BP systolic 138–157; BP diastolic 79–94; PULSE 69–88; RESP 18–20; TEMP 96.9–98.7; O2SAT 95–98
[2016-08-05] MEDS: INSULIN ASPART SUPPLEMENTAL SCALE SQ SCH ×4 (06:21→20:25)
--- NOTE | 2016-08-05 08:43 | HHI.PR ---
Review/Management Diagnosis Encephalopathy, resolved History of stroke with no residual deficit Possible post ictal state, given the initial abnormal EEG Followup EEG, twice, within normal and unremarkable Patient is stable, non-focal neurologic exam Plan D/C ed valproic acid D/C ed Acyclovir Lowered dose of Keppra to 500mg bid seizure precautions Stable non-focal neurologic exam I advised patient to avoid polypharmacy No acute abnormality on neurologic tests Patient may follow up as an outpatient Diagnosis/Plan: Subjective Subjective Comments No acute events reported No headache Friend at bed side states that patient is back to he base line Follow up EEG is unremarkable Normal Ammonia level Active Medications Current Medications Medications (Trade) Dose Ordered Sig/Solomon Route Start Time Stop Time Status Last Admin (NS Flush) 2 ml BID IV FLUSH 07/29/16 21:00 08/04/16 21:26 (NS Flush) 2 ml UNSCH PRN IV FLUSH 07/29/16 11:45 (Vasotec Inj) 1.25 mg Q4H PRN IV 07/29/16 11:45 (NovoLOG SUPPLEMENTAL SCALE) 1 ACHS SQ 07/29/16 16:00 08/03/16 16:04 (D50w (Vial) Inj) 50 ml UNSCH PRN IV PUSH 07/29/16 11:45 (Glucagon Inj) 1 mg UNSCH PRN OTHER 07/29/16 11:45 (Lovenox Inj) 30 mg Q24H SQ 07/29/16 12:00 08/04/16 11:50 (Lipitor) 40 mg HS PO 07/29/16 21:00 08/04/16 21:27 (Alphagan 0.2% Opth Soln) 1 drop BID EACH EYE 07/29/16 21:00 08/04/16 21:26 (Plavix) 75 mg DAILY PO 07/30/16 09:00 08/04/16 09:09 (Cosopt 2-0.5% Opth Soln) 1 drop BID EACH EYE 07/29/16 21:00 08/04/16 21:00 (SEROquel) 25 mg BID@09,12 PO 07/30/16 12:00 08/04/16 11:50 (Norvasc) 10 mg DAILY PO 07/31/16 09:00 08/04/16 09:09 (Ecotrin Ec) 81 mg DAILY PO 07/31/16 09:00 08/04/16 09:09 (Catapres) 0.1 mg TID PRN PO 07/30/16 14:30 07/31/16 14:19 (KCl) 8 meq DAILY PO 07/31/16 09:00 08/04/16 09:09 (Diovan) 160 mg DAILY PO 07/31/16 09:00 08/04/16 09:09 (Tylenol) 500 mg Q6H PRN PO 08/03/16 11:30 08/03/16 21:24 (Keppra) 500 mg Q12HR PO 08/04/16 21:45 08/04/16 21:26 Allergies Allergies Coded Allergies Morphine (Verified Allergy, Severe, 07/29/16) Percocet (Verified Allergy, Severe, 07/29/16) Tuberculin PPD (Verified Allergy, Severe, REDNESS, SWELLING, 07/29/16) Uncoded Allergies TB LUZ TEST ( Allergy, Intermediate, REDNESS, SWELLING, 10/02/08) Exam I&O / VS 08/04/16 08/04/16 08/05/16 15:00 23:00 07:00 # Voids 2 3 8 Vital Signs Date Time Temp Pulse Resp B/P Pulse Ox O2 Delivery O2 Flow Rate FiO2 08/05/16 04:00 98.7 73 18 138/87 97 08/04/16 21:00 78 08/04/16 20:00 98.9 78 18 151/90 96 08/04/16 16:28 98.6 90 18 151/83 98 08/04/16 12:00 97.0 74 18 167/96 98 General: Alert and Oriented, No acute distress Eye: PERRL, Normal conjuctiva, Vision unchanged Respiratory: Lungs CTA, Non-labored respirations Cardiology: Normal rate, Intact pulses Neurologic: Alert, Oriented, Other (alert and oriented, to person, place not to time[Florecita William [place], 2015],upper and lower extremity. Motor system is grossly normal, cranial nerve examination is grossly normal in, no sensory changes) Objective Micro and Labs Laboratory Tests Test 08/04/16 10:57 Ammonia 23 Destiny Ibarra MD Aug 05, 2016 08:43
[2016-08-05] MEDS: ASPIRIN EC 81 MG TABEC PO SCH (08:47)
[2016-08-05] MEDS: levETIRAcetam 500 MG TAB PO SCH ×2 (08:47→20:22)
[2016-08-05] MEDS: QUEtiapine FUMARATE 25 MG TAB PO SCH ×2 (08:47→12:35)
[2016-08-05] MEDS: SODIUM CHLORIDE 0.9% FLUSH 5 ML FLUSH IV FLUSH SCH ×2 (08:47→20:28)
[2016-08-05] MEDS: VALSARTAN 160 MG TAB PO SCH (08:47)
[2016-08-05] MEDS: POTASSIUM CHLORIDE 8 MEQ CONTROLLED RELEASE TAB PO SCH (08:47)
[2016-08-05] MEDS: CLOPIDOGREL 75 MG TAB PO SCH (08:47)
[2016-08-05] MEDS: DORZOLAMIDE/TIMOLOL OPTH SOLN 10 ML BTL EACH EYE SCH ×2 (08:48→20:23)
[2016-08-05] MEDS: BRIMONIDINE TARTRATE 0.2% OPHT SOLN 5 ML BTL EACH EYE SCH ×2 (08:48→20:23)
[2016-08-05] MEDS ORDERED: QUET1TAB7 PO (10:22)
[2016-08-05] MEDS ORDERED: LEVE500 PO (10:22)
[2016-08-05 10:23] LABS: BICARBONATE 27.5 MEQ/L (21.0-32.0)
--- NOTE | 2016-08-05 10:27 | HHI.DS ---
Discharge Summary Admission Date Jul 29, 2016 at 11:51 Discharge Date: Aug 05, 2016 Admitting Diagnosis acute ischemic CVA (1) Weakness ICD Code: R53.1 Diagnosis: Principal Procedures None Brief History - From Admission 76-year-old female with a history of hypertension, hyperlipidemia, coronary accident 2 weeks ago secondary to medication side effect, who presents with acute onset slurred speech and variable weakness in alternating left and right upper lower extremities starting at 4 AM. She called 911. She denies any chest pain or shortness of breath. She reports reversely feeling all right. She does report similar symptoms, but has not come in the hospital for these. She reports stopping Xanax 2 weeks ago, and intermittently taking gabapentin. She says that she used to listen to her doctor, but now "does what she wants with her medications". She describes taking narcotic medications, naming them "street drugs", but says they are legal. Patient does report unspecified amount of weight loss over the past year. Unintentional. She reports chronic intermittent constipation.exam is limited by tangential speech. CBC/BMP: 08/01/16 1158 Imaging Last Impressions Brain MRI 07/29/16 1338 Signed Impressions: Service Date/Time: July 16:00 - CONCLUSION: 1. No acute intracranial abnormality is identified. There are no findings to indicate recent ischemia. 2. Chronic changes include mild cerebral atrophy and periventricular and subcortical white matter signal changes characteristic of chronic microvascular ischemia. Jhon Bach MD Neck CTA 07/29/16629 Signed Impressions: Service Date/Time: July 06:43 - CONCLUSION: 1. Mild atherosclerotic disease in the carotid bulbs bilaterally but there is no associated luminal narrowing. 2. There is a 13 mm right thyroid nodule. Jhon Bach MD Head CTA 07/29/16629 Signed Impressions: Service Date/Time: July 06:43 - CONCLUSION: Atherosclerotic disease without evidence of high-grade stenosis or aneurysm. Thyroid nodules. Betito Gardner MD Head CT 07/29/16629 Signed Impressions: Service Date/Time: July 06:32 - CONCLUSION: Stable brain. No acute intracranial findings Jhon Dixon MD Chest X-Ray 07/29/16629 Signed Impressions: Service Date/Time: July 06:52 - CONCLUSION: No acute disease Jhon Dixon MD PE at Discharge GENERAL: NAD, A&Ox3, weak globally SKIN: Warm and dry. HEAD: Normocephalic. EYES: No scleral icterus. No injection or drainage. NECK: Supple, trachea midline. No JVD or lymphadenopathy. CARDIOVASCULAR: Regular rate and rhythm without murmurs, gallops, or rubs. RESPIRATORY: Breath sounds equal bilaterally. No accessory muscle use. GASTROINTESTINAL: Abdomen soft, non-tender, nondistended. MUSCULOSKELETAL: No cyanosis, or edema. Hospital Course Since Adia is a 76-year-old female. She was admitted with acute delirium. Initial thoughts were possible seizure versus CVA. CVA workup was negative. Seizures may have occurred though EEG showed no seizure pattern. She has been started on Keppra. An alternate cause of her acute delirium could've been Xanax or Xanax withdrawal. Xanax has been discontinued during this stay and she is weaning from the Xanax. She may have an underlying dementia. 2 time she has returned to alert and oriented 3. However, she remains globally weak. Last physical therapy assessment recommends inpatient or fdc facility placement for continued physical therapy. She is medically stable for discharge today to a fdc facility. Pt Condition on Discharge: Stable Discharge Disposition: Discharge to SNF Discharge Time: > 30 minutes Discharge Instructions DIET: Follow Instructions for: As Tolerated, No Restrictions Activities you can perform: Regular-No Restrictions Follow up Referrals: PCP Follow-up - 2 Weeks New Medications: Levetiracetam (Keppra) 500 Mg Tab 500 MG PO Q12HR Seizure Control #60 TAB Quetiapine (Quetiapine) 25 Mg Tab 25 MG PO HS Insomnia #30 TAB Continued Medications: Amlodipine (Amlodipine) 10 Mg Tab 10 MG PO DAILY Blood Pressure Management #[address] (Aspirin 81) 81 Mg Tabdr 81 MG PO DAILY Ref 0 TAB Atorvastatin (Atorvastatin) 40 Mg Tab 40 MG PO HS Cholesterol Management #30 Ref 0 TAB Brimonidine Opth Drops (Brimonidine Opth Drops) 0.2% Soln 1 DROP EACH EYE BID Intraocular pressure #1 Ref 0 BOTTLE Clonidine (Clonidine) 0.1 Mg Tab 0.1 MG PO TID PRN Elevated B/P #60 Ref 0 TAB Clopidogrel (Plavix) 75 Mg Tab 75 MG PO DAILY Blood Clot Prevention #30 Ref 0 TAB Dorzolamide-Timolol Opth Drops (Cosopt Opth Drops) 22.3-6.8 Mg/Ml Soln 1 DROP EACH EYE BID Glaucoma #1 Ref 0 BOTTLE Potassium Chloride ER (Klor-Con 8) 8 Meq Tab 8 MEQ PO DAILY Electrolyte Replacement #30 Ref 0 TAB Valsartan (Diovan) 160 Mg Tab 160 MG PO DAILY hypertension Days 30 Ref 0 TAB Discontinued Medications: Alprazolam (Xanax) 1 Mg Tab 1 MG PO BID PRN ANXIETY Ref 0 TAB Gonzalo Cervantes MD Aug 05, 2016 10:27
[2016-08-05 10:31] LABS: POTASSIUM 2.7 MEQ/L (3.5-5.1)
[2016-08-05] MEDS ORDERED: POTASSIUM CHLORIDE 10 MEQ CONTROLLED RELEASE TAB PO ONE ×2 (10:45→16:00)
[2016-08-05] MEDS: ENOXAPARIN SODIUM 30 MG/0.3 ML SYRINGE SQ SCH (12:35)
--- NOTE | 2016-08-05 14:59 | HHI.FF ---
Face to Face Verification Diagnosis: (1) Delirium due to another medical condition (2) Weakness Physical Therapy Order: Evaluate and Treat Home Health Nursing Order: Signs/symptoms of disease process Nursing assessment with vital signs Instructions: Also evaluate for disorientation I have seen patient Falguni Cheek on 08/05/16. My clinical findings support the need for the requested home health care services because: Ltd mobility - disease progression Deconditioned w/ increased weakness Limited ability to care for self Impaired cognition/judgement High risk of falls I certify that my clinical findings support that this patient is homebound because: Unsteady gait/balance Unsafe to leave home unassisted Unable to use public transportation Gonzalo Cervanets MD Aug 05, 2016 14:59
[2016-08-05] MEDS ORDERED: WALKER/ADULT/FO1 MIS (15:01)
[2016-08-05] MEDS ORDERED: BEDSIDE COMMODE1 MI1 (15:01)
[2016-08-05] MEDS: ATORVASTATIN 40 MG TAB PO SCH (20:22)
[2016-08-06] VITALS: BP 130/73; PULSE 81; RESP 20; TEMP 98.4; O2SAT 98
[2016-08-06 04:00] VITALS: BP 131/75; PULSE 83; RESP 20; TEMP 97.2; O2SAT 97
[2016-08-06 06:00] VITALS: PULSE 68
[2016-08-06] MEDS: INSULIN ASPART SUPPLEMENTAL SCALE SQ SCH ×2 (07:00→11:00)
[2016-08-06 08:27] LABS: BICARBONATE 25.4 MEQ/L (21.0-32.0); POTASSIUM 3.4 MEQ/L (3.5-5.1)
[2016-08-06] MEDS: POTASSIUM CHLORIDE 8 MEQ CONTROLLED RELEASE TAB PO SCH (08:39)
[2016-08-06] MEDS: CLOPIDOGREL 75 MG TAB PO SCH (08:39)
[2016-08-06] MEDS: QUEtiapine FUMARATE 25 MG TAB PO SCH ×2 (08:39→12:36)
[2016-08-06] MEDS: levETIRAcetam 500 MG TAB PO SCH (08:40)
[2016-08-06] MEDS: VALSARTAN 160 MG TAB PO SCH (08:40)
[2016-08-06] MEDS: ASPIRIN EC 81 MG TABEC PO SCH (08:40)
[2016-08-06] MEDS: SODIUM CHLORIDE 0.9% FLUSH 5 ML FLUSH IV FLUSH SCH (08:40)
[2016-08-06] MEDS: DORZOLAMIDE/TIMOLOL OPTH SOLN 10 ML BTL EACH EYE SCH (08:43)
[2016-08-06] MEDS: BRIMONIDINE TARTRATE 0.2% OPHT SOLN 5 ML BTL EACH EYE SCH (08:43)
[2016-08-06 08:45] LABS: HEMATOCRIT 34.8 % (35.0-46.0); MEAN CELL VOLUME 87.4 FL (80.0-100.0); MEAN CORPUSCULAR HGB CONC 33.2 % (32.0-36.0); PLATELET COUNT 270 TH/MM3 (150-450); RED BLOOD COUNT 3.98 MIL/MM3 (4.00-5.30); RED CELL DISTRIBUTION WIDTH 15.4 % (11.6-17.2); REVIEW FLAG FINAL; WHITE BLOOD COUNT 5.2 TH/MM3 (4.0-11.0)
[2016-08-06 09:09] VITALS: BP 143/95; PULSE 80; RESP 20; TEMP 96.4; O2SAT 98
[2016-08-06] MEDS ORDERED: POTA-163 PO (09:20)
--- NOTE | 2016-08-06 09:21 | HHI.PR ---
Subjective Remarks The patient's discharge was held yesterday due to hypokalemia. Patient and family decided to take her home with home health. Potassium level acceptable today. She can be discharged home with home health today. Objective Vitals Vital Signs Date Time Temp Pulse Resp B/P Pulse Ox O2 Delivery O2 Flow Rate FiO2 08/06/16 09:09 96.4 80 20 143/95 98 08/06/16 04:00 97.2 83 20 131/75 97 08/06/16 00:00 98.4 81 20 130/73 98 08/05/16 21:00 88 08/05/16 19:30 97.8 84 18 139/79 95 08/05/16 16:32 98.4 81 20 147/91 98 08/05/16 12:05 96.9 74 20 146/94 98 I/O 08/05/16 08/05/16 08/05/16 08/06/16 08/06/16 08/06/16 07:00 15:00 23:00 07:00 15:00 23:00 # Voids 8 3 4 # Bowel Movements 1 Result Diagram: 08/06/16 0737 08/06/16 0737 Objective Remarks GENERAL: NAD, A&Ox3, weak globally CARDIOVASCULAR: Regular rate and rhythm without murmurs, gallops, or rubs. RESPIRATORY: Breath sounds equal bilaterally. No accessory muscle use. GASTROINTESTINAL: Abdomen soft, non-tender, nondistended. MUSCULOSKELETAL: No cyanosis, or edema. Procedures None A/P Problem List: (1) Weakness ICD Code: R53.1 Status: Acute Assessment and Plan 76-year-old female admitted with acute delirium. Initially thought to be CVA. However workup is negative. Patient was followed by neurology. Seizure might have been an underlying cause. Medication overuse also possibility. Patient has been using Xanax at home. There is also a question of underlying dementia. The patient mental status returned to baseline. However she continued to be generally weak. Her son will be taking care of her at home. She is discharged with home health and physical therapy. Guy La MD Aug 06, 2016 09:21
[2016-08-06 12:19] VITALS: BP 131/81; PULSE 79; RESP 20; TEMP 97.5; O2SAT 97
[2016-08-06] MEDS: ENOXAPARIN SODIUM 30 MG/0.3 ML SYRINGE SQ SCH (12:36)
[2016-08-06 16:33] VITALS: BP 133/84; PULSE 84; RESP 20; TEMP 97.6; O2SAT 98
== END 2016-08-06 16:56 | disposition home health service (06) | DRG 71 ==
LOC: NEPE 06:24 → NEDA 11:51 → HIMW 17:05 → N05A 07-31 18:27
PROVIDERS: ADMIT Family Medicine; ATTEND Family Medicine
PROC: 0T9B70Z Drainage of Bladder with Drainage Device, Via Natural or Artificial Opening (ICD-10-PCS; principal; 2016-07-29)
DX: G93.40 Encephalopathy, unspecified (principal); F05 Delirium due to known physiological condition; G92 Toxic encephalopathy; I13.0 Hypertensive heart and chronic kidney disease with heart failure and stage 1 through stage 4 chronic kidney disease, or unspecified chronic kidney disease; I50.9 Heart failure, unspecified; F03.90 Unspecified dementia, unspecified severity, without behavioral disturbance, psychotic disturbance, mood disturbance, and anxiety; R47.01 Aphasia; T42.4X5A Adverse effect of benzodiazepines, initial encounter; N18.3 Chronic kidney disease, stage 3 (moderate); R47.1 Dysarthria and anarthria; R29.810 Facial weakness; R07.9 Chest pain, unspecified; I25.10 Atherosclerotic heart disease of native coronary artery without angina pectoris; Z95.5 Presence of coronary angioplasty implant and graft; Z87.442 Personal history of urinary calculi; K21.9 Gastro-esophageal reflux disease without esophagitis; E78.00 Pure hypercholesterolemia, unspecified; G89.29 Other chronic pain; M54.9 Dorsalgia, unspecified; E78.5 Hyperlipidemia, unspecified; Z86.73 Personal history of transient ischemic attack (TIA), and cerebral infarction without residual deficits; I71.4 Abdominal aortic aneurysm, without rupture; Z87.891 Personal history of nicotine dependence; F41.9 Anxiety disorder, unspecified; H40.9 Unspecified glaucoma; D72.819 Decreased white blood cell count, unspecified; I25.2 Old myocardial infarction; Z95.1 Presence of aortocoronary bypass graft; Z78.1 Physical restraint status; E87.6 Hypokalemia; Y92.9 Unspecified place or not applicable
CPT/HCPCS: 70450; 70496; 70498; 70553; 71010; 76937; 80048; 80053; 80061; 80164; 80307; 81001; 82140; 82435; 82550; 82565; 82607; 82947; 82948; 83036; 84132; 84295; 84425; 84436; 84439; 84443; 84481; 84484; 84520; 85025; 85027; 85610; 85652; 85730; 86038; 86592; 87641; 93005; 93225; 93226; 93306; 95819; A9579; J0133; J1630; J1650; J1815; J1953; J2060; J7030; Q9967

== ENCOUNTER 2016-11-12 03:31 | Emergency (ER) | payer MEDICARE, OTHER ==
[~2016-11-12] VITALS: Ht 162.6 cm; Wt 50.0 kg
[~2016-11-12 03:31] MED LIST changes: +BEDSIDE COMMODE1 MI1; -FERR325T PO; -FURO1TAB60 PO; -GABA300C5 PO; -KLOR8TAB PO; +LEVE500 PO; -MIRA33504 PO; +POTA-163 PO; +QUET1TAB7 PO; +WALKER/ADULT/FO1 MIS; -XANA1TAB2 PO
[2016-11-12 03:40] VITALS: BP 180/89; PULSE 66; RESP 16; TEMP 98.3; O2SAT 97
[2016-11-12] MEDS ORDERED: SODIUM CHLOR 0.9% 1000 ML INJ 1,000 ML IV SCH (03:42)
[2016-11-12 03:45] VITALS: RESP 18; O2SAT 98
[2016-11-12] MEDS ORDERED: SODIUM CHLORIDE 0.9% FLUSH 5 ML FLUSH IV FLUSH PRN (03:45)
--- NOTE | 2016-11-12 04:09 | PD ---
HPI Chief Complaint: General Weakness Time Seen by Provider: 03:42 Travel History International Travel<30 days: No Contact w/Intl Traveler<30days: No Traveled to known affect area: No History of Present Illness HPI Patient 76-year-old female presents emergency Department with her son for complaints of altered mental status and weakness for the past few days culminating in tonight being very weak. Her son states that she is dehydrated and he thinks that she needs "feedings through the IV". He states that she's also been losing weight and he doesn't know how much. She is difficult to converse with initially, she is weak in all 4 extremities and I think that it secondary to poor effort. This does limit her initial history a little. No fevers no abdominal pain no chest pain was reported by her son. No falls. No focalized weakness. PFSH Past Medical History Arthritis: Yes Asthma: No Autoimmune Disease: No Blood Disorders: No Heart Rhythm Problems: No Cancer: No Cardiac Catheterization: Yes Cardiovascular Problems: Yes High Cholesterol: Yes Chest Pain: Yes Congestive Heart Failure: Yes COPD: No Cerebrovascular Accident: No Coronary Artery Disease: Yes Diabetes: No Diminished Hearing: No Endocrine: No Gastrointestinal Disorders: Yes GERD: Yes Glaucoma: No Genitourinary: No Hepatitis: Yes Hiatal Hernia: No Hypertension: Yes Immune Disorder: No Implanted Vascular Access Dvce: Yes Kidney Stones: Yes Musculoskeletal: No Neurologic: No Psychiatric: No Reproductive: No Respiratory: Yes Integumentary: No Migraines: No Seizures: No Sleep Apnea: No Thyroid Disease: No Ulcer: No Tetanus Vaccination: Unknown Influenza Vaccination: No Past Surgical History AICD: No Arteriovenous Shunt: No Body Medical Devices: ROOT CANAL Cardiac Surgery: Yes (2 STENT PLACEMENTS) Coronary Stent: Yes Gynecologic Surgery: Yes (HYSTERECTOMY) Hysterectomy: Yes Insulin Pump: No Joint Replacement: Yes Pacemaker: No Social History Alcohol Use: No Tobacco Use: No Substance Use: No Allergies-Medications (Allergen,Severity, Reaction): Coded Allergies: acetaminophen (Unverified Allergy, Severe, 11/12/16) morphine (Unverified Allergy, Severe, 11/12/16) oxycodone (Unverified Allergy, Severe, 11/12/16) tuberculin, purified protein deriva (Unverified Allergy, Severe, REDNESS, SWELLING, 11/12/16) Uncoded Allergies: TB LUZ TEST (Allergy, Intermediate, REDNESS, SWELLING, 10/02/08) Reported Meds & Prescriptions Reported Meds & Active Scripts Active Potassium Chloride ER (Potassium Chloride) 20 Meq Tab 20 Meq PO DAILY Bedside Commode (Device) 1 Mis Mis 1 Ea .ROUTE DIRECTED Walker/Adult/Folding (Device) 1 Mis Mis 1 Ea .ROUTE DIRECTED Keppra (Levetiracetam) 500 Mg Tab 500 Mg PO Q12HR Quetiapine (Quetiapine Fumarate) 25 Mg Tab 25 Mg PO HS Diovan (Valsartan) 160 Mg Tab 160 Mg PO DAILY 30 Days Reported Amlodipine (Amlodipine Besylate) 10 Mg Tab 10 Mg PO DAILY Aspirin 81 (Aspirin) 81 Mg Tabdr 81 Mg PO DAILY Atorvastatin (Atorvastatin Calcium) 40 Mg Tab 40 Mg PO HS Brimonidine Opth Drops (Brimonidine Tartrate) 0.2% Soln 1 Drop EACH EYE BID Clonidine (Clonidine HCl) 0.1 Mg Tab 0.1 Mg PO TID PRN Plavix (Clopidogrel Bisulfate) 75 Mg Tab 75 Mg PO DAILY Cosopt Opth Drops (Dorzolamide-Timolol Opth Drops) 22.3-6.8 Mg/Ml Soln 1 Drop EACH EYE BID Review of Systems Except as stated in HPI: all other systems reviewed are Neg Physical Exam Narrative GENERAL: Well-developed, thin nontoxic, somewhat somnolent. SKIN: Focused skin assessment warm/dry. HEAD: Atraumatic. Normocephalic. EYES: Pupils equal and round. No scleral icterus. No injection or drainage. ENT: No nasal bleeding or discharge. Mucous membranes pink and moist. NECK: Trachea midline. No JVD. CARDIOVASCULAR: Regular rate and rhythm. No murmur appreciated. RESPIRATORY: No accessory muscle use. Clear to auscultation. Breath sounds equal bilaterally. GASTROINTESTINAL: Abdomen soft, non-tender, nondistended. Hepatic and splenic margins not palpable. MUSCULOSKELETAL: No obvious deformities. No clubbing. No cyanosis. No edema. NEUROLOGICAL: Awake and alert. Follows commands in all 4 extremity's, cranial nerves II through XII are grossly intact and nonfocal. Somewhat somnolent, strike somewhat decrease and I believe is secondary to poor effort. PSYCHIATRIC: Appropriate mood and affect; insight and judgment normal. Data Data Last Documented VS Vital Signs Date Time Temp Pulse Resp B/P (MAP) Pulse Ox O2 Delivery O2 Flow Rate FiO2 11/12/16 06:44 79 18 150/87 (108) 99 11/12/16 03:45 Room Air 11/12/16 03:40 98.3 Orders Orders Electrocardiogram (11/12/16 03:42) Complete Blood Count With Diff (11/12/16 03:42) Comprehensive Metabolic Panel (11/12/16 03:42) Creatine Kinase (Cpk) (11/12/16 03:42) Prothrombin Time / Inr (Pt) (11/12/16 03:42) Act Partial Throm Time (Ptt) (11/12/16 03:42) Troponin I (11/12/16 03:42) Thyroid Stimulating Hormone (11/12/16 03:42) Urinalysis - C+S If Indicated (11/12/16 03:42) Lactic Acid Sepsis Protocol (11/12/16 03:42) Blood Culture (11/12/16 03:42) Chest, Single Ap (11/12/16 03:42) Ct Brain W/O Iv Contrast(Rout) (11/12/16 03:42) Blood Glucose (11/12/16 03:42) Ecg Monitoring (11/12/16 03:42) Iv Access Insert/Monitor (11/12/16 03:42) Oximetry (11/12/16 03:42) Sodium Chloride 0.9% Flush (Ns Flush) (11/12/16 03:45) Sodium Chlor 0.9% 1000 Ml Inj (Ns 1000 M (11/12/16 03:42) Drug Screen, Random Urine (11/12/16 03:42) Alcohol (Ethanol) (11/12/16 03:42) Tylenol (Acetaminophen) (11/12/16 03:42) Salicylates (Aspirin) (11/12/16 03:42) Cephalexin (Keflex) (11/12/16 06:00) Blood Gas Venous (Vbg) (11/12/16 05:45) Labs Laboratory Tests Test 11/12/16 04:00 11/12/16 04:05 11/12/16 05:45 Urine Color COLORLESS Urine Turbidity CLEAR Urine pH 7.5 Urine Specific [place] 1.007 Urine Protein NEG mg/dL Urine Glucose (UA) NEG mg/dL Urine Ketones TRACE mg/dL Urine Occult Blood NEG Urine Nitrite NEG Urine Bilirubin NEG Urine Urobilinogen LESS THAN 2.0 MG/DL Urine Leukocyte Esterase NEG Urine RBC LESS THAN 1 /hpf Microscopic Urinalysis Comment CATH-CULT NOT IND Urine Opiates Screen NEG Urine Barbiturates Screen NEG Urine Amphetamines Screen NEG Urine Benzodiazepines Screen NEG Urine Cocaine Screen NEG Urine Cannabinoids Screen NEG White Blood Count 4.9 TH/MM3 Red Blood Count 4.04 MIL/MM3 Hemoglobin 11.5 GM/DL Hematocrit 34.6 % Mean Corpuscular Volume 85.7 FL Mean Corpuscular Hemoglobin 28.4 PG Mean Corpuscular Hemoglobin Concent 33.1 % Red Cell Distribution Width 15.7 % Platelet Count 293 TH/MM3 Mean Platelet Volume 7.3 FL Neutrophils (%) (Auto) 58.5 % Lymphocytes (%) (Auto) 25.3 % Monocytes (%) (Auto) 10.4 % Eosinophils (%) (Auto) 5.2 % Basophils (%) (Auto) 0.6 % Neutrophils # (Auto) 2.8 TH/MM3 Lymphocytes # (Auto) 1.2 TH/MM3 Monocytes # (Auto) 0.5 TH/MM3 Eosinophils # (Auto) 0.3 TH/MM3 Basophils # (Auto) 0.0 TH/MM3 CBC Comment DIFF FINAL Differential Comment Prothrombin Time 11.4 SEC Prothromb Time International Ratio 1.0 RATIO Activated Partial Thromboplast Time 32.2 SEC Blood Urea Nitrogen 11 MG/DL Creatinine 0.64 MG/DL Random Glucose 97 MG/DL Total Protein 7.5 GM/DL Albumin 3.5 GM/DL Calcium Level 9.2 MG/DL Alkaline Phosphatase 65 U/L Aspartate Amino Transf (AST/SGOT) 12 U/L Alanine Aminotransferase (ALT/SGPT) 13 U/L Total Bilirubin 0.4 MG/DL Sodium Level 137 MEQ/L Potassium Level 3.4 MEQ/L Chloride Level 105 MEQ/L Carbon Dioxide Level 23.3 MEQ/L Anion Gap 9 MEQ/L Estimat Glomerular Filtration Rate 110 ML/MIN Lactic Acid Level 0.8 mmol/L Total Creatine Kinase 96 U/L Troponin I 0.02 NG/ML Thyroid Stimulating Hormone 3rd Gen 0.770 uIU/ML Salicylates Level 2.1 MG/DL Acetaminophen Level LESS THAN 2.0 MCG/ML Ethyl Alcohol Level 4 MG/DL Blood Gas Puncture Site PIV Blood Gas Patient Temperature 98.6 Venous Blood pH 7.35 Venous Blood Partial Pressure CO2 44 mmHg Venous Blood Partial Pressure O2 28 mmHg Venous Blood HCO3 24 mmol/L Venous Blood Oxygen Saturation 38 % Venous Blood Oxygen Content 6.2 Vol % Venous Blood Base Excess -1.3 mmol/L Oxygen Delivery Device RA HOPSON Medical Decision Making Medical Screen Exam Complete: Yes Emergency Medical Condition: Yes Differential Diagnosis Anemia, ACS seems unlikely, SC unlikely, dehydration, acute kidney injury, acidosis, pneumonia seems unlikely, somatoform disorder possible. Narrative Course Patient roomed emergency department, given normal saline, initial workup including CBC CMP lactic acid chest x-ray EKG and VBG are wholly unremarkable. The patient has had a complete change in mental status while here for the better. She is now alert awake and oriented stating that she wants to go home. Her son says that she's had a complete turnaround. She has not had any focalized weakness and therefore I do not believe this is. Discussed that she needs to be taking a multivitamin and taking some ensure for nutrition discussed need for follow-up with her primary care physician in the morning. Having excluded emergent cause to her somnolent she is stable for discharge. Diagnosis Primary Impression: Weakness Disposition: 01 DISCHARGE HOME Condition: Stable Tony Brown MD Nov 12, 2016 04:09
[2016-11-12 04:20] LABS: AUTOMATED NEUTROPHIL # 2.8 TH/MM3 (1.8-7.7); BASOPHIL % 0.6 % (0.0-2.0); EOSINOPHIL # 0.3 TH/MM3 (0-0.4); EOSINOPHIL % 5.2 % (0.0-4.0); HEMATOCRIT 34.6 % (35.0-46.0); HEMO FLAGS DIFF FINAL; LYMPH % 25.3 % (9.0-44.0); LYMPHOCYTE # 1.2 TH/MM3 (1.0-4.8); MEAN CELL VOLUME 85.7 FL (80.0-100.0); MEAN CORPUSCULAR HEMOGLOBIN 28.4 PG (27.0-34.0); MEAN CORPUSCULAR HGB CONC 33.1 % (32.0-36.0); MONO % 10.4 % (0.0-8.0); NEUT % 58.5 % (16.0-70.0); PLATELET COUNT 293 TH/MM3 (150-450); RED BLOOD COUNT 4.04 MIL/MM3 (4.00-5.30); RED CELL DISTRIBUTION WIDTH 15.7 % (11.6-17.2); WHITE BLOOD COUNT 4.9 TH/MM3 (4.0-11.0)
[2016-11-12 04:22] LABS: BLOOD, URINE NEG (NEG); GLUCOSE,URINE NEG (NEG); KETONE, URINE TRACE mg/dL (NEG); NITRITE,URINE NEG (NEG); PH, URINE 7.5 (5.0-8.5); URINE COLOR COLORLESS (YELLW/STRAW)
[2016-11-12 04:25] LABS: COMMENT (UR) CATH-CULT NOT IND; CULTURE IF INDICATED CATH CULTURE NOT IND
[2016-11-12 04:30] LABS: APTT (PATIENT) 32.2 SEC (24.3-30.1); PROTHROMBIN TIME - PATIENT 11.4 SEC (9.8-11.6)
[2016-11-12 04:42] LABS: ANION GAP 9 MEQ/L (5-15)
[2016-11-12 04:57] LABS: ACETAMINOPHEN LESS THAN 2.0 MCG/ML (10.0-30.0); ALKALINE PHOSPHATASE 65 U/L (45-117); ALT (GPT) 13 U/L (10-53); AST (GOT) 12 U/L (15-37); BICARBONATE 23.3 MEQ/L (21.0-32.0); BLOOD UREA NITROGEN 11 MG/DL (7-18); CHLORIDE 105 MEQ/L (98-107); CREATINE KINASE 96 U/L (26-192); GLOMERULAR FILTRATION RATE 110 ML/MIN (>89); POTASSIUM 3.4 MEQ/L (3.5-5.1); SODIUM (NA) 137 MEQ/L (136-145); TOTAL BILIRUBIN ADULT 0.4 MG/DL (0.2-1.0)
[2016-11-12 04:58] LABS: ALCOHOL 4 MG/DL (0-5)
--- NOTE | 2016-11-12 05:03 | RADRPT ---
EXAM DATE/TIME: 11/12/2016 04:13 [facility] COMPARISON: CT BRAIN W/O CONTRAST, July 29, 2016, 6:32. INDICATIONS : Altered mental status. Cephalgia. RADIATION DOSE: 56.35 CTDIvol (mGy) MEDICAL HISTORY : Hypertension. Congestive heart failure. CAD. SURGICAL HISTORY : Coronary artery stent. ENCOUNTER: Initial ACUITY: 1 day PAIN SCALE: 4/10 LOCATION: cranial TECHNIQUE: Multiple contiguous axial images were obtained of the head. Using automated exposure control and adj ustment of the mA and/or kV according to patient size, radiation dose was kept as low as reasonably a chievable to obtain optimal diagnostic quality images. DICOM format image data is available electro nically for review and comparison. FINDINGS: CEREBRUM: The ventricles are normal for age. Stable cortical atrophy with dense atherosclerotic calcification of the intracranial vessels. Bilateral lacunar-type infarcts located in the basal ganglia on the left and the centrum semi-ovale on the right. Periventricular areas of diminished attenuation are charact eristic of stable small vessel ischemic demyelination. No evidence of midline shift, mass lesion, hem orrhage or acute infarction. No extra-axial fluid collections are seen. POSTERIOR FOSSA: The cerebellum and brainstem are intact. The 4th ventricle is midline. The cerebellopontine angle i s unremarkable. EXTRACRANIAL: The visualized portion of the orbits is intact. SKULL: The calvaria is intact. No evidence of skull fracture. CONCLUSION: 1. Stable chronic changes of bilateral lacunar-type infarcts and periventricular small vessel ischemi c demyelination. 2. Nothing acute. Cooper Barker MD on November 12, 2016 at 4:58 Board Certified Radiologist. This report was verified electronically.
--- NOTE | 2016-11-12 05:04 | RADRPT ---
EXAM DATE/TIME: 11/12/2016 04:19 [facility] COMPARISON: CHEST SINGLE AP, July 29, 2016, 6:52. INDICATIONS : Syncopal episode and general weakness. MEDICAL HISTORY : None. SURGICAL HISTORY : None. ENCOUNTER: Initial ACUITY: 1 day PAIN SCORE: Non-responsive. LOCATION: chest FINDINGS: A single view of the chest demonstrates the lungs to be symmetrically aerated without evidence of mas s, infiltrate or effusion. Heart size remains prominent a walker compensated. Stable uncoiling of the thoracic aorta. Dextroscoliosis of the thoracolumbar spine with associated mild degenerative changes . Otherwise intact. CONCLUSION: 1. Stable chest with no acute cardiopulmonary process. 2. Compensated cardiomegaly.. Cooper Barker MD on November 12, 2016 at 5:01 Board Certified Radiologist. This report was verified electronically.
[2016-11-12] MEDS ORDERED: CEPHALEXIN MONOHYDRATE 500 MG CAP PO SCH (06:00)
[2016-11-12 06:03] LABS: BLOOD GAS VENOUS BASE EXCESS -1.3 mmol/L (-2-2); BLOOD GAS VENOUS HCO3 24 mmol/L (22-26); BLOOD GAS VENOUS O2 CONTENT 6.2 Vol % (9.0-17.0); BLOOD GAS VENOUS O2 HGB SAT 38 % (70-76); BLOOD GAS VENOUS PCO2 44 mmHg (44-48); BLOOD GAS VENOUS PO2 28 mmHg (35-40); BLOOD GAS VENOUS pH 7.35 (7.360-7.400); CRITICAL VALUE YES; DRAW SITE PIV; OXYGEN DEVICE RA; TEMP CORR TO 98.6
[2016-11-12 06:44] VITALS: BP 150/87
--- NOTE | 2016-11-12 11:40 | EKG ---
Date Performed: 11/12/2016 Time Performed: 04:07:48 PTAGE: 76 years EKG: Sinus rhythm WITH FREQUENT SUPRAVENTRICULAR PREMATURE COMPLEXES POSSIBLE LEFT ATRIAL ENLARGEMENT MARKED LEFT AXIS DEVIATION LEFT BUNDLE BRANCH BLOCK ABNORMAL ECG Compared to prior tracing no significant change PREVIOUS TRACING : 07/29/2016 06.59 DOCTOR: Thony Marcial Interpretating Date/Time 11/12/2016 11:38:32
[2016-11-17 08:19] LABS: STAT YES
== END 2016-11-12 06:51 | disposition home or self-care (01) ==
LOC: NEPC 03:31
DX: R53.1 Weakness (principal); R94.31 Abnormal electrocardiogram [ECG] [EKG]; I10 Essential (primary) hypertension; E78.00 Pure hypercholesterolemia, unspecified; Z79.899 Other long term (current) drug therapy; Z87.39 Personal history of other diseases of the musculoskeletal system and connective tissue; Z86.79 Personal history of other diseases of the circulatory system; Z87.19 Personal history of other diseases of the digestive system; Z87.442 Personal history of urinary calculi
CPT/HCPCS: 70450; 71010; 80053; 80307; 81001; 82550; 82805; 83605; 84443; 84484; 85025; 85610; 85730; 87040; 93005; 99285; J7030

== ENCOUNTER 2016-12-27 07:19 | Observation (INO) | payer OTHER ==
[~2016-12-27] VITALS: Ht 170.2 cm; Wt 58.0 kg
[2016-12-27 07:22] VITALS: BP 166/81; PULSE 81; RESP 14; O2SAT 100
[2016-12-27 07:37] VITALS: BP 178/90; PULSE 63; RESP 18; O2SAT 97
[2016-12-27] MEDS ORDERED: TRAM50TA PO (07:41)
[2016-12-27] MEDS ORDERED: SODIUM CHLOR 0.9% 1000 ML INJ 1,000 ML IV SCH (07:56)
[2016-12-27] MEDS ORDERED: METOCLOPRAMIDE HCL 10 MG/2 ML VIAL IV PUSH ONE (08:00)
[2016-12-27] MEDS ORDERED: SODIUM CHLORIDE 0.9% FLUSH 10 ML FLUSH IV FLUSH PRN (08:00)
[2016-12-27] MEDS ORDERED: ONDANSETRON HCL 4 MG/2 ML VIAL IVP ONE (08:00)
[2016-12-27 08:23] VITALS: RESP 18; O2SAT 97
[2016-12-27 08:40] LABS: AUTOMATED NEUTROPHIL # 3.5 TH/MM3 (1.8-7.7); BASOPHIL % 0.2 % (0.0-2.0); EOSINOPHIL # 0.1 TH/MM3 (0-0.4); EOSINOPHIL % 2.3 % (0.0-4.0); HEMATOCRIT 35.1 % (35.0-46.0); LYMPH % 17.9 % (9.0-44.0); LYMPHOCYTE # 0.9 TH/MM3 (1.0-4.8); MEAN CELL VOLUME 86.1 FL (80.0-100.0); MEAN CORPUSCULAR HGB CONC 33.7 % (32.0-36.0); MONO % 7.4 % (0.0-8.0); NEUT % 72.2 % (16.0-70.0); PLATELET COUNT 471 TH/MM3 (150-450); RED BLOOD COUNT 4.07 MIL/MM3 (4.00-5.30); WHITE BLOOD COUNT 4.8 TH/MM3 (4.0-11.0)
[2016-12-27 08:41] LABS: HEMO FLAGS AUTO DIFF
[2016-12-27 08:45] LABS: BACTERIA, URINE RARE /hpf; BLOOD, URINE NEG (NEG); COMMENT (UR) CULT NOT INDICATED; CULTURE IF INDICATED CULT NOT INDICATED; GLUCOSE,URINE NEG (NEG); KETONE, URINE NEG (NEG); MUCUS URINE FEW /lpf (OCC); NITRITE,URINE NEG (NEG); SQUAMOUS EPITHELIAL CELL URINE 1 /hpf (0-5); URINE COLOR LIGHT-YELLOW (YELLW/STRAW)
[2016-12-27] MEDS ORDERED: DIATRIZOATE MEGLUM/DIATRIZOATE SOD 9 ML CUP ONE (08:45)
[2016-12-27 09:18] LABS: ACANTHOCYTES OCC (NORMAL)
[2016-12-27 09:19] LABS: KERATOCYTES OCC (NORMAL); PLATELET ESTIMATE SMEAR NORMAL (NORMAL); PLATELET MORPHOLOGY NORMAL (NORMAL); SCAN/DIFF AUTO DIFF CONFIRMED
[2016-12-27 09:23] LABS: ALT (GPT) 20 U/L (10-53)
[2016-12-27 09:33] LABS: ALKALINE PHOSPHATASE 60 U/L (45-117); ANION GAP 11 MEQ/L (5-15); AST (GOT) 41 U/L (15-37); BLOOD UREA NITROGEN 12 MG/DL (7-18); CHLORIDE 98 MEQ/L (98-107); CREATINE KINASE 170 U/L (26-192); GLOMERULAR FILTRATION RATE 96 ML/MIN (>89); POTASSIUM 3.6 MEQ/L (3.5-5.1); SODIUM (NA) 134 MEQ/L (136-145); TOTAL BILIRUBIN ADULT 0.5 MG/DL (0.2-1.0)
[2016-12-27 09:51] VITALS: BP 135/93
--- NOTE | 2016-12-27 10:10 | RADRPT ---
EXAM DATE/TIME: 12/27/2016 09:58 [facility] COMPARISON: CT BRAIN W/O CONTRAST, November 12, 2016, 4:13. INDICATIONS : Cephalgia, nausea and vomiting. RADIATION DOSE: 63.80 CTDIvol (mGy) MEDICAL HISTORY : Cerebrovascular disease. Seizures. Cardiovascular disease SURGICAL HISTORY : Hysterectomy. ENCOUNTER: Initial ACUITY: 1 day PAIN SCALE: 4/10 LOCATION: cranial TECHNIQUE: Multiple contiguous axial images were obtained of the head. Using automated exposure control and adj ustment of the mA and/or kV according to patient size, radiation dose was kept as low as reasonably a chievable to obtain optimal diagnostic quality images. DICOM format image data is available electro nically for review and comparison. FINDINGS: CEREBRUM: Stable cortical atrophy is noted. Old lacunar infarcts are noted within the right leonard radiata and bilateral basal ganglia. Mild periventricular white matter small vessel ischemic changes are noted bi laterally. No evidence of midline shift, mass lesion, hemorrhage or acute infarction. No extra-axial fluid collections are seen. POSTERIOR FOSSA: The cerebellum and brainstem are intact. The 4th ventricle is midline. The cerebellopontine angle i s unremarkable. EXTRACRANIAL: The visualized portion of the orbits is intact. SKULL: The calvaria is intact. No evidence of skull fracture. CONCLUSION: 1. No acute infarct, acute hemorrhage, midline shift or extra-axial fluid collections. 2. Stable cerebral atrophy, periventricular white matter small vessel ischemic changes and scattered old lacunar infarcts within the right leonard radiata and bilateral basal ganglia. Tony Espana MD on December 27, 2016 at 10:04 Board Certified Radiologist. This report was verified electronically.
--- NOTE | 2016-12-27 10:35 | RADRPT ---
EXAM DATE/TIME: 12/27/2016 10:02 [facility] COMPARISON: No previous studies available for comparison. INDICATIONS : Abdominal pain, nausea and vomiting. ORAL CONTRAST: Partial prescribed oral contrast ingested. RADIATION DOSE: 4.86 CTDIvol (mGy) MEDICAL HISTORY : Cerebrovascular disease. Seizures. Cardiovascular disease SURGICAL HISTORY : None. ENCOUNTER: Initial ACUITY: 1 day PAIN SCALE: 6/10 LOCATION: Bilateral upper quadrant TECHNIQUE: Volumetric scanning of the abdomen and pelvis was performed. Using automated exposure control and ad justment of the mA and/or kV according to patient size, radiation dose was kept as low as reasonably achievable to obtain optimal diagnostic quality images. DICOM format image data is available electro nically for review and comparison. FINDINGS: LOWER LUNGS: Minimal bibasilar atelectasis/scarring. Moderate coronary artery calcifications. LIVER: Homogeneous density without lesion. There is no dilation of the biliary tree. Gallbladder is very di stended but otherwise unremarkable by CT. SPLEEN: Normal size without lesion. PANCREAS: Within normal limits. KIDNEYS: Kidneys are symmetrical in size without evidence for hydronephrosis or radiopaque renal calculi. No s ignificant contour deforming renal abnormality. ADRENAL GLANDS: Within normal limits. VASCULAR: Diffuse atherosclerotic calcifications without focal aneurysm. Heavily calcified iliac arteries. BOWEL/MESENTERY: The stomach, small bowel, and colon demonstrate no acute abnormality. No evidence for obstruction. T here is no free intraperitoneal air or fluid. ABDOMINAL WALL: Within normal limits. RETROPERITONEUM: There is no lymphadenopathy. BLADDER: No wall thickening or mass. REPRODUCTIVE: Within normal limits. INGUINAL: There is no lymphadenopathy or hernia. MUSCULOSKELETAL: Within normal limits for patient age. CONCLUSION: 1. Very distended gallbladder which otherwise appears unremarkable by CT. Consider further evaluation with ultrasound if there is clinical concern regarding cholecystitis. 2. Otherwise, no acute CT abnormality in the abdomen or pelvis. Rolando Genao MD on December 27, 2016 at 10:29 Board Certified Radiologist. This report was verified electronically.
[2016-12-27] MEDS ORDERED: POTASSIUM CHLOR 20 MEQ PREMIX 100 ML IV ONE (11:00)
[2016-12-27] MEDS ORDERED: POTASSIUM CHLORIDE 20 MEQ CONTROLLED RELEASE TAB PO ONE (11:00)
[2016-12-27] MEDS ORDERED: LACTULOSE SYRUP 20 GM/30 ML CUP PO PRN (11:30)
[2016-12-27] MEDS ORDERED: NALOXONE HCL 0.4 MG/ML AMP IV PUSH PRN (11:30)
[2016-12-27] MEDS ORDERED: MAGNESIUM HYDROXIDE SUSP 30 ML CUP PO PRN (11:30)
[2016-12-27] MEDS ORDERED: BISACODYL 10 MG SUPP RECTAL PRN (11:30)
[2016-12-27] MEDS ORDERED: ONDANSETRON HCL 4 MG/2 ML VIAL IVP PRN (11:30)
[2016-12-27] MEDS ORDERED: SENNOSIDES 8.6 MG TAB PO PRN (11:30)
--- NOTE | 2016-12-27 12:44 | PD ---
HPI Chief Complaint: GI Complaint Time Seen by Provider: 07:40 Travel History International Travel<30 days: No Contact w/Intl Traveler<30days: No Traveled to known affect area: No History of Present Illness HPI 76-year-old female came to the emergency room with history of failure to thrive for past 1 month. Since last night she started to vomit. Her sister brought her in for intractable vomiting. Her sister says that patient lives by herself and has been sick for past couple months. She was diagnosed with new onset seizure 6 months ago but has been weaned off the Keppra. Sister comes and helps her out without her doctor's appointments. She says she has lost about 9 pounds in past 2 months. Has not been eating much. She only drinks ensure. Last night she started vomiting intractably. Also complaining of headache which apparently she has on a daily basis it got worse last night. Patient seems frail and delay in answering questions. She knows where she is but unaware of the date and month. Vital signs otherwise stable. No history of syncopal episode. No history of fever or chills. No history of diarrhea. Sister says she had constipation for past couple days and yesterday got a Dulcolax suppository that she bought [id number]. [facility] Past Medical History Narrative Medical List of her past medical, surgical, social and family history is reviewed from the nursing note. Arthritis: Yes Asthma: No Autoimmune Disease: No Blood Disorders: No Heart Rhythm Problems: No Cancer: No Cardiac Catheterization: Yes Cardiovascular Problems: Yes High Cholesterol: Yes Chest Pain: Yes Congestive Heart Failure: Yes COPD: No Cerebrovascular Accident: Yes Coronary Artery Disease: Yes Diabetes: No Diminished Hearing: No Endocrine: No Gastrointestinal Disorders: Yes GERD: Yes Glaucoma: No Genitourinary: No Hepatitis: Yes Hiatal Hernia: No Hypertension: Yes Immune Disorder: No Implanted Vascular Access Dvce: Yes Kidney Stones: Yes Musculoskeletal: No Neurologic: No Psychiatric: No Reproductive: No Respiratory: Yes Integumentary: No Migraines: Yes Seizures: Yes Sleep Apnea: No Thyroid Disease: No Ulcer: No Past Surgical History AICD: No Arteriovenous Shunt: No Body Medical Devices: ROOT CANAL Cardiac Surgery: Yes (2 STENT PLACEMENTS) Coronary Stent: Yes Gynecologic Surgery: Yes (HYSTERECTOMY) Hysterectomy: Yes Insulin Pump: No Joint Replacement: Yes Pacemaker: No Other Surgery: No Social History Alcohol Use: No Tobacco Use: No Substance Use: No Allergies-Medications (Allergen,Severity, Reaction): Coded Allergies: acetaminophen (Unverified Allergy, Severe, 12/27/16) morphine (Unverified Allergy, Severe, 12/27/16) oxycodone (Unverified Allergy, Severe, 12/27/16) tuberculin, purified protein deriva (Unverified Allergy, Severe, REDNESS, SWELLING, 12/27/16) Uncoded Allergies: TB LUZ TEST (Allergy, Intermediate, REDNESS, SWELLING, 10/02/08) Comments List of her allergies reviewed from the nursing note. Reported Meds & Prescriptions Reported Meds & Active Scripts Active Bedside Commode (Device) 1 Mis Mis 1 Ea .ROUTE DIRECTED Walker/Adult/Folding (Device) 1 Mis Mis 1 Ea .ROUTE DIRECTED Quetiapine (Quetiapine Fumarate) 25 Mg Tab 25 Mg PO HS Diovan (Valsartan) 160 Mg Tab 160 Mg PO DAILY 30 Days Reported Amlodipine (Amlodipine Besylate) 10 Mg Tab 10 Mg PO DAILY Aspirin 81 (Aspirin) 81 Mg Tabdr 81 Mg PO DAILY Atorvastatin (Atorvastatin Calcium) 40 Mg Tab 40 Mg PO HS Brimonidine Opth Drops (Brimonidine Tartrate) 0.2% Soln 1 Drop EACH EYE BID Clonidine (Clonidine HCl) 0.1 Mg Tab 0.1 Mg PO TID PRN Plavix (Clopidogrel Bisulfate) 75 Mg Tab 75 Mg PO DAILY Cosopt Opth Drops (Dorzolamide-Timolol Opth Drops) 22.3-6.8 Mg/Ml Soln 1 Drop EACH EYE BID Narrative Medication List of her home medications reviewed from the nursing note. Review of Systems Except as stated in HPI: all other systems reviewed are Neg Gastrointestinal: Positive: Vomiting, Constipation Neurologic: Positive: Weakness, Headache Physical Exam Narrative GENERAL: Awake, alert, elderly and frail, moderate distress SKIN: Focused skin assessment warm/dry. HEAD: Atraumatic. Normocephalic. EYES: Pupils equal and round. No scleral icterus. No injection or drainage. ENT: No nasal bleeding or discharge. Mucous membranes pink and moist. NECK: Trachea midline. No JVD. CARDIOVASCULAR: Regular rate and rhythm. No murmur appreciated. RESPIRATORY: No accessory muscle use. Clear to auscultation. Breath sounds equal bilaterally. GASTROINTESTINAL: Abdomen soft, non-tender, nondistended. Hepatic and splenic margins not palpable. MUSCULOSKELETAL: No obvious deformities. No clubbing. No cyanosis. No edema. NEUROLOGICAL: Awake and alert. No obvious cranial nerve deficits. Motor grossly within normal limits. Normal speech. PSYCHIATRIC: Appropriate mood and affect; insight and judgment normal. Data Data Last Documented VS Vital Signs Date Time Temp Pulse Resp B/P (MAP) Pulse Ox O2 Delivery O2 Flow Rate FiO2 12/27/16 09:51 135/93 (107) 12/27/16 08:23 18 97 Room Air 12/27/16 07:37 63 Orders Orders Complete Blood Count With Diff (12/27/16 07:56) Comprehensive Metabolic Panel (12/27/16 07:56) Lipase (12/27/16 07:56) Urinalysis - C+S If Indicated (12/27/16 07:56) Ct Abd/Pel W/O Iv Contrast (12/27/16 07:56) Iv Access Insert/Monitor (12/27/16 07:56) Ecg Monitoring (12/27/16 07:56) Oximetry (12/27/16 07:56) Ondansetron Inj (Zofran Inj) (12/27/16 08:00) Sodium Chlor 0.9% 1000 Ml Inj (Ns 1000 M (12/27/16 07:56) Sodium Chloride 0.9% Flush (Ns Flush) (12/27/16 08:00) Electrocardiogram (12/27/16 07:56) Ct Brain W/O Iv Contrast(Rout) (12/27/16 ) Troponin I (12/27/16 07:56) Creatine Kinase (Cpk) (12/27/16 07:56) Metoclopramide Inj (Reglan Inj) (12/27/16 08:00) Oral Contrast - Adult (12/27/16 08:33) Diatrizoate Liq ( Gastroview Liq) (12/27/16 08:45) Potassium, Serum (K) (12/27/16 09:41) Potassium Chlor 20 Meq Premix (Kcl 20 Me (12/27/16 11:00) Potassium Chloride (Kcl) (12/27/16 11:00) Admit Order (Ed Use Only) (12/27/16 11:25) Labs Laboratory Tests Test 12/27/16 08:11 12/27/16 09:49 White Blood Count 4.8 TH/MM3 Red Blood Count 4.07 MIL/MM3 Hemoglobin 11.8 GM/DL Hematocrit 35.1 % Mean Corpuscular Volume 86.1 FL Mean Corpuscular Hemoglobin 29.0 PG Mean Corpuscular Hemoglobin Concent 33.7 % Red Cell Distribution Width 20.0 % Platelet Count 471 TH/MM3 Mean Platelet Volume 7.3 FL Neutrophils (%) (Auto) 72.2 % Lymphocytes (%) (Auto) 17.9 % Monocytes (%) (Auto) 7.4 % Eosinophils (%) (Auto) 2.3 % Basophils (%) (Auto) 0.2 % Neutrophils # (Auto) 3.5 TH/MM3 Lymphocytes # (Auto) 0.9 TH/MM3 Monocytes # (Auto) 0.4 TH/MM3 Eosinophils # (Auto) 0.1 TH/MM3 Basophils # (Auto) 0.0 TH/MM3 CBC Comment AUTO DIFF Differential Comment AUTO DIFF CONFIRMED Platelet Estimate NORMAL Platelet Morphology Comment NORMAL Acanthocytes OCC Keratocytes OCC Urine Color LIGHT-YELLOW Urine Turbidity CLEAR Urine pH 6.0 Urine Specific [place] 1.013 Urine Protein NEG mg/dL Urine Glucose (UA) NEG mg/dL Urine Ketones NEG mg/dL Urine Occult Blood NEG Urine Nitrite NEG Urine Bilirubin NEG Urine Urobilinogen LESS THAN 2.0 MG/DL Urine Leukocyte Esterase NEG Urine RBC LESS THAN 1 /hpf Urine WBC 1 /hpf Urine Squamous Epithelial Cells 1 /hpf Urine Bacteria RARE /hpf Urine Mucus FEW /lpf Microscopic Urinalysis Comment CULT NOT INDICATED Blood Urea Nitrogen 12 MG/DL Creatinine 0.72 MG/DL Random Glucose 105 MG/DL Total Protein 8.6 GM/DL Albumin 3.6 GM/DL Calcium Level 9.3 MG/DL Alkaline Phosphatase 60 U/L Aspartate Amino Transf (AST/SGOT) 41 U/L Alanine Aminotransferase (ALT/SGPT) 20 U/L Total Bilirubin 0.5 MG/DL Sodium Level 134 MEQ/L Potassium Level 3.6 MEQ/L 2.7 MEQ/L Chloride Level 98 MEQ/L Carbon Dioxide Level 25.0 MEQ/L Anion Gap 11 MEQ/L Estimat Glomerular Filtration Rate 96 ML/MIN Total Creatine Kinase 170 U/L Troponin I 0.03 NG/ML Lipase 111 U/L Magnesium Level 1.5 MG/DL MDM Medical Decision Making Medical Screen Exam Complete: Yes Emergency Medical Condition: Yes Medical Record Reviewed: Yes Interpretation(s) Twelve-lead EKG was reviewed by me. Normal sinus rhythm, left axis deviation, left bundle branch block. Heart rate of 62 bpm. Differential Diagnosis Dehydration, electrolyte abnormalities, intracranial bleed, small bowel obstruction, fecal impaction Narrative Course 11:30 AM blood test results are back. Potassium is low and I have ordered for when necessary IV replacement. CAT scan of her head and abdomen and pelvis are within acceptable limits. Patient is given IV fluid bolus, IV Reglan and Zofran for her nausea and headache. However given her frail status, failure to thrive and electrolyte abnormality I have decided to admit her. I spoke with the hospitalist who has accepted the case. Procedures EKG Prior to Arrival: No Diagnosis Primary Impression: Failure to thrive in adult Additional Impressions: Vomiting Qualified Codes: R11.2 - Nausea with vomiting, unspecified Hypokalemia Admitting Information Admitting Physician Requests: Observation Scripts Multiple Vitamin (Thera/Beta-Carotene) 1 Tab Tab 1 TAB PO DAILY for nutritional supplement , #60 TAB Prov: Va Sam MD 12/28/16 Ibuprofen (Ibuprofen) 400 Mg Tab 400 MG PO Q12HR Y for pain/inflamation take with martinez, #20 TAB 0 Refills Prov: Va Sam MD 12/28/16 Famotidine (Famotidine) 20 Mg Tab 20 MG PO BID for gi protection /dyspepsia, #60 TAB 0 Refills Prov: Va Sam MD 12/28/16 Potassium Bicarb-Chloride Effervescent (Effervescent Potassium Chloride 25 Meq) 25 Meq Tab 25 MEQ PO DAILY for Electrolyte Replacement, #30 TAB 0 Refills Prov: Va Sam MD 12/28/16 Hydrocodone-Acetaminophen ([place]) 5-325 mg Tab 1 TAB PO Q6H Y for PAIN, #14 TAB 0 Refills Prov: Va Sam MD 12/28/16 Mamie Jean-Baptiste MD Dec 27, 2016 12:44
--- NOTE | 2016-12-27 13:25 | EKG ---
Date Performed: 12/27/2016 Time Performed: 08:12:20 PTAGE: 76 years EKG: Sinus rhythm WITH OCCASIONAL SUPRAVENTRICULAR PREMATURE COMPLEXES MARKED LEFT AXIS DEVIATION LEFT BUNDLE BRANCH B LOCK ABNORMAL ECG PREVIOUS TRACING : 11/12/2016 04.07 Compared to prior tracing no significant change DOCTOR: Fazal Travis Interpretating Date/Time 12/27/2016 13:23:14
[2016-12-27 14:22] VITALS: BP 154/94; PULSE 73; RESP 16; TEMP 99.2; O2SAT 99
[2016-12-27] MEDS: NS + KCL 20 MEQ INJ 1,000 ML IV SCH (15:38)
--- NOTE | 2016-12-27 16:12 | HHI.HP ---
HPI Service [facility] Primary Care Physician Inez Sharma MD (Vipin) Admission Diagnosis failure to thrive, hypokalemia Diagnoses: Chief Complaint: Hypokalemia Intractable nausea and vomiting Travel History International Travel<30 Days: No Contact w/Intl Traveler <30 Da: No Traveled to Known Affected Are: No History of Present Illness Written by Brook Rider, acting as scribe for Dr. Parada on 12/27/16 at 16:07. This is a 76-year-old female with a past medical history significant for CAD, CHF, HLD, HTN, chronic leukopenia, CKD stage III, AAA and history of CVA 30 years ago who presents to [facility] with complaints of intractable vomiting x 1 day. Patient states that last night she developed sudden onset of nausea and bilious, nonbloody vomiting last night. She denies any associated fever, chills or abdominal pain. Patient's been taking antibiotics for recent dental extraction of all dentition. She denies any chest pain or shortness of breath. She reports headache which is chronic. She denies any vision changes. She denies any urinary complaints. She denies any diarrhea or constipation. Patient states that she has lost a significant amount of weight over the past 2 months going from 160 to 120 pounds due to having all of her teeth pulled out and having ill fitting dentures. Reports her appetite is good and she wants to eat. She had an appointment to follow-up with her primary care physician as well as her dentist today. Her sister came to the house to take her to her appointments and due to ongoing nausea and vomiting opted to bring her to the ED instead. Patient was found to have hemolyzed potassium level of 3.6 in the ED. Repeat potassium level with critical value of 2.7. Patient states she was previously taking potassium supplementation but it was discontinued by her primary care physician. Patient denies any complaints at present. She denies any nausea or vomiting. She is looking forward to eating. Review of Systems Except as stated in HPI: all other systems reviewed are Neg Past Family Social History Past Medical History Recent hospitalization July 2016 with acute delirium possibly seizure versus CVA. CVA workup negative. Patient started on Keppra but has since been weaned off. Hypertension Coronary artery disease status post cardiac stenting Dyslipidemia Chronic leukopenia History of CVA 30 years ago Dyslipidemia CHF, Ejection fraction 45-50% in July 2016. Kidney stones Arthritis Glaucoma CKD stage III Abdominal aortic aneurysm discovered in January 2016. Ascending aorta 4.7 cm, descending 3.4 cm. Patient refused surgery as outpatient. Past Surgical History Cardiac stents 2 Right total knee replacement Hysterectomy Reported Medications Quetiapine (Quetiapine Fumarate) 25 Mg Tab 25 Mg PO HS Diovan (Valsartan) 160 Mg Tab 160 Mg PO DAILY 30 Days Tramadol (Tramadol HCl) 50 Mg Tab 50 Mg PO Q6H PRN Amlodipine (Amlodipine Besylate) 10 Mg Tab 10 Mg PO DAILY Aspirin 81 (Aspirin) 81 Mg Tabdr 81 Mg PO DAILY Atorvastatin (Atorvastatin Calcium) 40 Mg Tab 40 Mg PO HS Brimonidine Opth Drops (Brimonidine Tartrate) 0.2% Soln 1 Drop EACH EYE BID Clonidine (Clonidine HCl) 0.1 Mg Tab 0.1 Mg PO TID PRN Plavix (Clopidogrel Bisulfate) 75 Mg Tab 75 Mg PO DAILY Cosopt Opth Drops (Dorzolamide-Timolol Opth Drops) 22.3-6.8 Mg/Ml Soln 1 Drop EACH EYE BID Allergies: Coded Allergies: acetaminophen (Unverified Allergy, Severe, 12/27/16) morphine (Unverified Allergy, Severe, 12/27/16) oxycodone (Unverified Allergy, Severe, 12/27/16) tuberculin, purified protein deriva (Unverified Allergy, Severe, REDNESS, SWELLING, 12/27/16) Uncoded Allergies: TB LUZ TEST (Allergy, Intermediate, REDNESS, SWELLING, 10/02/08) Active Ordered Medications Current Medications Medications (Trade) Dose Ordered Sig/Solomon Route Start Time Stop Time Status Last Admin (NS Flush) 2 ml UNSCH PRN IV FLUSH 12/27/16 08:00 (Zofran Inj) 4 mg Q6H PRN IVP 12/27/16 11:30 (Narcan Inj) 0.4 mg UNSCH PRN IV PUSH 12/27/16 11:30 (Milk Of Magnesia Liq) 30 ml Q12H PRN PO 12/27/16 11:30 (Senokot) 17.2 mg Q12H PRN PO 12/27/16 11:30 (Dulcolax Supp) 10 mg DAILY PRN RECTAL 12/27/16 11:30 (Lactulose Liq) 30 ml DAILY PRN PO 12/27/16 11:30 Potassium Chloride/Sodium Chloride 1,000 ml @ 70 mls/hr [id number] IV 12/27/16 15:00 12/27/16 15:38 Family History Hypertension Social History Patient has a history of tobacco use but quit smoking 20 years ago. She denies any alcohol consumption or illicit drug use. Patient lives alone and is functional with her ADLs per her report. Physical Exam Vital Signs Vital Signs Date Time Temp Pulse Resp B/P (MAP) Pulse Ox O2 Delivery O2 Flow Rate FiO2 12/27/16 14:22 99.2 73 16 154/94 (114) 99 12/27/16 09:51 135/93 (107) 12/27/16 08:23 18 97 Room Air 12/27/16 07:37 63 18 178/90 (119) 97 Room Air 12/27/16 07:22 81 14 166/81 (109) 100 Physical Exam GENERAL: This is a well-nourished, well-developed patient, in no apparent distress. Awake and alert. SKIN: No rashes, ecchymoses or lesions. Cool and dry. HEAD: Atraumatic. Normocephalic. No temporal or scalp tenderness. EYES: Pupils equal round and reactive. Extraocular motions intact. No scleral icterus. No injection or drainage. ENT: Nose without bleeding, purulent drainage. Throat without erythema, tonsillar hypertrophy or exudate. Uvula midline. Airway patent. Absent dentition. NECK: Trachea midline. No lymphadenopathy. Supple, nontender, no meningeal signs. CARDIOVASCULAR: Regular rate and rhythm without murmurs, gallops, or rubs. RESPIRATORY: Clear to auscultation. Breath sounds equal bilaterally. No wheezes , rales, or rhonchi. GASTROINTESTINAL: Abdomen soft, non-tender, nondistended. No hepato-splenomegaly , or palpable masses. No guarding. MUSCULOSKELETAL: Extremities without clubbing, cyanosis, or edema. No joint tenderness, effusion, or edema noted. No calf tenderness. NEUROLOGICAL: Awake and alert. Able to move all extremities. Nonfocal. Normal speech. Laboratory Laboratory Tests Test 12/27/16 08:11 12/27/16 09:49 White Blood Count 4.8 Red Blood Count 4.07 Hemoglobin 11.8 Hematocrit 35.1 Mean Corpuscular Volume 86.1 Mean Corpuscular Hemoglobin 29.0 Mean Corpuscular Hemoglobin Concent 33.7 Red Cell Distribution Width 20.0 Platelet Count 471 Mean Platelet Volume 7.3 Neutrophils (%) (Auto) 72.2 Lymphocytes (%) (Auto) 17.9 Monocytes (%) (Auto) 7.4 Eosinophils (%) (Auto) 2.3 Basophils (%) (Auto) 0.2 Neutrophils # (Auto) 3.5 Lymphocytes # (Auto) 0.9 Monocytes # (Auto) 0.4 Eosinophils # (Auto) 0.1 Basophils # (Auto) 0.0 CBC Comment AUTO DIFF Differential Comment AUTO DIFF CONFIRMED Platelet Estimate NORMAL Platelet Morphology Comment NORMAL Acanthocytes OCC Keratocytes OCC Urine Color LIGHT-YELLOW Urine Turbidity CLEAR Urine pH 6.0 Urine Specific [place] 1.013 Urine Protein NEG Urine Glucose (UA) NEG Urine Ketones NEG Urine Occult Blood NEG Urine Nitrite NEG Urine Bilirubin NEG Urine Urobilinogen LESS THAN 2.0 Urine Leukocyte Esterase NEG Urine RBC LESS THAN 1 Urine WBC 1 Urine Squamous Epithelial Cells 1 Urine Bacteria RARE Urine Mucus FEW Microscopic Urinalysis Comment CULT NOT INDICATED Blood Urea Nitrogen 12 Creatinine 0.72 Random Glucose 105 Total Protein 8.6 Albumin 3.6 Calcium Level 9.3 Alkaline Phosphatase 60 Aspartate Amino Transf (AST/SGOT) 41 Alanine Aminotransferase (ALT/SGPT) 20 Total Bilirubin 0.5 Sodium Level 134 Potassium Level 3.6 2.7 Chloride Level 98 Carbon Dioxide Level 25.0 Anion Gap 11 Estimat Glomerular Filtration Rate 96 Total Creatine Kinase 170 Troponin I 0.03 Lipase 111 Result Diagram: 12/27/16 0811 12/27/16 0949 Imaging Current Medications Medications (Trade) Dose Ordered Sig/Solomon Route Start Time Stop Time Status Last Admin (NS Flush) 2 ml UNSCH PRN IV FLUSH 12/27/16 08:00 (Zofran Inj) 4 mg Q6H PRN IVP 12/27/16 11:30 (Narcan Inj) 0.4 mg UNSCH PRN IV PUSH 12/27/16 11:30 (Milk Of Magnesia Liq) 30 ml Q12H PRN PO 12/27/16 11:30 (Senokot) 17.2 mg Q12H PRN PO 12/27/16 11:30 (Dulcolax Supp) 10 mg DAILY PRN RECTAL 12/27/16 11:30 (Lactulose Liq) 30 ml DAILY PRN PO 12/27/16 11:30 Potassium Chloride/Sodium Chloride 1,000 ml @ 70 mls/hr [id number] IV 12/27/16 15:00 12/27/16 15:38 Caprini VTE Risk Assessment Caprini VTE Risk Assessment: Mod/High Risk (score >= 2) Caprini Risk Assessment Model Point Value = 1 Point Value = 2 Point Value = 3 Point Value = 5 Age 41-60 Minor surgery BMI > 25 kg/m2 Swollen legs Varicose veins or History of unexplained or recurrent spontaneous Oral contraceptives or hormone replacement Sepsis (< 1 month) Serious lung disease, including pneumonia (< 1 month) Abnormal pulmonary function Acute myocardial infarction Congestive heart failure (< 1 month) History of inflammatory bowel disease Medical patient at bed rest Age 61-74 Arthroscopic surgery Major open surgery (> 45 min) Laparoscopic surgery (> 45 min) Malignancy Confined to bed (> 72 hours) Immobilizing plaster cast Central venous access Age >= 75 History of VTE Family history of VTE Factor V Leiden Prothrombin [id number] Lupus anticoagulant Anticardiolipin antibodies Elevated serum homocysteine Heparin-induced thrombocytopenia Other congenital or acquired thrombophilia Stroke (< 1 month) Elective arthroplasty Hip, pelvis, or leg fracture Acute spinal cord injury (< 1 month) Prophylaxis Regimen Total Risk Factor Score Risk Level Prophylaxis Regimen 0-1 Low Early ambulation 2 Moderate Order ONE of the following: *Sequential Compression Device (SCD) *Heparin 5000 units SQ BID 3-4 Higher Order ONE of the following medications: *Heparin 5000 units SQ TID *Enoxaparin/Lovenox 40 mg SQ daily (WT < 150 kg, CrCl > 30 mL/min) *Enoxaparin/Lovenox 30 mg SQ daily (WT < 150 kg, CrCl > 10-29 mL/min) *Enoxaparin/Lovenox 30 mg SQ BID (WT < 150 kg, CrCl > 30 mL/min) AND/OR *Sequential Compression Device (SCD) 5 or more Highest Order ONE of the following medications: *Heparin 5000 units SQ TID (Preferred with Epidurals) *Enoxaparin/Lovenox 40 mg SQ daily (WT < 150 kg, CrCl > 30 mL/min) *Enoxaparin/Lovenox 30 mg SQ daily (WT < 150 kg, CrCl > 10-29 mL/min) *Enoxaparin/Lovenox 30 mg SQ BID (WT < 150 kg, CrCl > 30 mL/min) AND *Sequential Compression Device (SCD) Assessment and Plan Assessment and Plan 76-year-old female with a past medical history significant for CAD, CHF, HLD, HTN, chronic leukopenia, CKD stage III, AAA and history of CVA 30 years ago who presents to [facility] with complaints of intractable vomiting x 1 day. Intractable N/V - Suspect partially due to taking oral antibiotics on empty stomach due to poor by mouth intake as a result of recent extraction of all teeth and ill fitting dentures - CT abd/pelvis personally reviewed showing a very distended gallbladder which is otherwise unremarkable by CT. Order follow-up GB US. - Improved - Zofran when necessary Hypokalemia - secondary to above - Patient also reports a history of low potassium requiring supplementation that was discontinued by her PCP - Patient given by mouth and IV repletion - obtain Mag level - am labs to monitor response - Continuous cardiac monitoring Weight loss - patient reports 40lb wt loss in past 2 months - due to recent extraction of all teeth and ill fitting dentures - Patient had an appointment to see her dentist today. Recommend rescheduling dental appointment as soon as possible so the patient can get correct size fitting dentures and improve her oral intake. - soft diet with Ensure between meals - consult water commissioner PT/OT eval/tx Headache - chronic ppr - CT of the head personally reviewed showing no acute intracranial abnormality. Stable cerebral atrophy and white matter small vessel ischemic changes with scattered old lacunar infarcts. - Tylenol prn CAD s/p stenting in the past - Patient denies any complaints of chest pain - troponin 0.03 - Cardiac monitoring - resume home dose of ASA pending GB US results HTN - Resume patient on home dose of antihypertensives - Monitor BP and adjust treatment accordingly History of CVA - Resume home dose of Plavix and atorvastatin Glaucoma - Resume home eyedrops DVT prophylaxis - Bilateral SCD/TERESA hose This note was transcribed by karl Rider. I, Dr. Antonio Parada personally performed the history, physical exam, and medical decision making; and confirmed the accuracy of the information in the transcribed note. Authenticated by Dr. Antonio Parada on 12/27/16 at 16:43. Discussed Condition With ED physician, patient, nursing staff Brook Rider Dec 27, 2016 16:12 Antonio Parada MD Dec 27, 2016 16:44
[2016-12-27] MEDS ORDERED: cloNIDine HCL 0.1 MG TAB PO PRN (17:45)
--- NOTE | 2016-12-27 18:08 | RADRPT ---
EXAM DATE/TIME: 12/27/2016 17:42 [place] COMPARISON: No previous studies available for comparison. INDICATIONS : Nausea/Vomiting. MEDICAL HISTORY : Stroke. Seizures. Hypercholesterolemia. Coronary artery disease. Chest pain. Hypertension. Dyspnea. G astroesophageal reflux disease. Kidney stones. Arthritis. SURGICAL HISTORY : Coronary artery stent. Hysterectomy. Total knee replacement, right. Cardiac catheterization. ENCOUNTER: Initial ACUITY: 1 day PAIN SCORE: 2/10 LOCATION: Right upper quadrant MEASUREMENTS: LIVER: 14.9 cm length COMMON DUCT: 7 mm RIGHT KIDNEY: 10.9 x 5.0 x 4.8 cm FINDINGS: LIVER: Normal echotexture without focal lesion or ductal dilatation. COMMON DUCT: No intraluminal mass or stone visualized. GALLBLADDER: Contains no stones, demonstrates no wall thickening or pericholecystic fluid. PANCREAS: The visualized portions are within normal limits. RIGHT KIDNEY: No evidence of hydronephrosis, stone, or mass. There is increased echogenicity of the kidney compared to the liver. CONCLUSION: 1. Unremarkable gallbladder with no evidence of cholelithiasis. 2. The right kidney is mildly increased in echogenicity most consistent with medical renal disease. Gopi Villavicencio MD on December 27, 2016 at 18:04 Board Certified Radiologist. This report was verified electronically.
[2016-12-27] MEDS: traMADol HCL 50 MG TAB PO PRN (18:37)
[2016-12-27 19:48] VITALS: BP 138/78; PULSE 89; RESP 18; TEMP 98.2; O2SAT 99
[2016-12-27] MEDS ORDERED: ATORVASTATIN 40 MG TAB PO SCH (21:00)
[2016-12-27] MEDS ORDERED: QUEtiapine FUMARATE 25 MG TAB PO SCH (21:00)
[2016-12-27] MEDS ORDERED: IBUPROFEN 400 MG TAB PO ONE (23:45)
[2016-12-28] MEDS: DORZOLAMIDE/TIMOLOL OPTH SOLN 10 ML BTL EACH EYE SCH ×2 (00:08→08:26)
[2016-12-28] MEDS: BRIMONIDINE TARTRATE 0.2% OPHT SOLN 5 ML BTL EACH EYE SCH ×2 (00:08→08:24)
[2016-12-28 00:34] VITALS: BP 136/69; PULSE 89; RESP 18; TEMP 98.2; O2SAT 99
[2016-12-28 04:00] VITALS: PULSE 69
[2016-12-28 04:06] VITALS: BP 134/70; PULSE 88; RESP 18; TEMP 98.4; O2SAT 99
[2016-12-28] MEDS: NS + KCL 20 MEQ INJ 1,000 ML IV SCH (05:59)
[2016-12-28 07:28] VITALS: BP 152/79; PULSE 85; RESP 22; TEMP 98.3; O2SAT 98
--- NOTE | 2016-12-28 08:02 | HHI.PR ---
Subjective Remarks Feel better headache better controlled. No n/v/d/c. Able to eat some grits in the morning. However says she doesn't like the food here and she will do better at home with food. No fever or chills. Has a walker at home. Objective Vitals Vital Signs Date Time Temp Pulse Resp B/P (MAP) Pulse Ox O2 Delivery O2 Flow Rate FiO2 12/28/16 07:28 98.3 85 22 152/79 (103) 98 12/28/16 04:06 98.4 88 18 134/70 (91) 99 12/28/16 04:00 69 12/28/16 00:34 98.2 89 18 136/69 (91) 99 12/27/16 19:48 98.2 89 18 138/78 (98) 99 12/27/16 14:22 99.2 73 16 154/94 (114) 99 12/27/16 09:51 135/93 (107) 12/27/16 08:23 18 97 Room Air I/O 12/27/16 12/27/16 12/27/16 12/28/16 12/28/16 12/28/16 07:00 15:00 23:00 07:00 15:00 23:00 Intake Total 1000 ml 421 ml Balance 1000 ml 421 ml Intake IV Total 1000 ml 421 ml Result Diagram: 12/27/16 0811 12/27/16 0949 Imaging Last Impressions Abdomen/Pelvis CT 12/27/16 0756 Signed Impressions: Service Date/Time: Tuesday, December 27, 2016 10:02 - CONCLUSION: 1. Very distended gallbladder which otherwise appears unremarkable by CT. Consider further evaluation with ultrasound if there is clinical concern regarding cholecystitis. 2. Otherwise, no acute CT abnormality in the abdomen or pelvis. Rolando Genao MD Head CT 12/27/16 0000 Signed Impressions: Service Date/Time: Tuesday, December 27, 2016 09:58 - CONCLUSION: 1. No acute infarct, acute hemorrhage, midline shift or extra-axial fluid collections. 2. Stable cerebral atrophy, periventricular white matter small vessel ischemic changes and scattered old lacunar infarcts within the right leonard radiata and bilateral basal ganglia. Tony Espana MD Gall Bladder Ultrasound 12/27/16 0000 Signed Impressions: Service Date/Time: Tuesday, December 27, 2016 17:42 - CONCLUSION: 1. Unremarkable gallbladder with no evidence of cholelithiasis. 2. The right kidney is mildly increased in echogenicity most consistent with medical renal disease. Gopi Villavicencio MD Objective Remarks GENERAL: This is a well-nourished, well-developed patient, in no apparent distress. Awake and alert. SKIN: No rashes, ecchymoses or lesions. Cool and dry. ENT: Nose without bleeding, purulent drainage. Throat without erythema, tonsillar hypertrophy or exudate. Uvula midline. Airway patent. Absent dentition. CARDIOVASCULAR: Regular rate and rhythm without murmurs, gallops, or rubs. RESPIRATORY: Clear to auscultation. Breath sounds equal bilaterally. No wheezes , rales, or rhonchi. GASTROINTESTINAL: Abdomen soft, non-tender, nondistended. No hepato-splenomegaly , or palpable masses. No guarding. MUSCULOSKELETAL: Extremities without clubbing, cyanosis, or edema. No joint tenderness, effusion, or edema noted. No calf tenderness. NEUROLOGICAL: Awake and alert. Able to move all extremities. Nonfocal. Normal speech. A/P Assessment and Plan 76-year-old female with a past medical history significant for CAD, CHF, HLD, HTN, chronic leukopenia, CKD stage III, AAA and history of CVA 30 years ago who presents to [facility] with complaints of intractable vomiting x 1 day. Intractable N/V Suspect partially due to taking oral antibiotics on empty stomach due to poor by mouth intake as a result of recent extraction of all teeth and ill fitting dentures CT abd/pelvis personally reviewed showing a very distended gallbladder which is otherwise unremarkable by CT. Order follow-up GB US. Improved Zofran when necessary Hypokalemia Secondary to above Patient also reports a history of low potassium requiring supplementation that was discontinued by her PCP Patient given by mouth and IV repletion Obtain Mag level Monitor response Continuous cardiac monitoring Weight loss patient reports 40lb wt loss in past 2 months, due to recent extraction of all teeth and ill fitting dentures, to f/u with her dentist as OP Patient had an appointment to see her dentist today. Recommend rescheduling dental appointment as soon as possible so the patient can get correct size fitting dentures and improve her oral intake. soft diet with Ensure between meals consult quencher operator PT/OT eval/tx Headache chronic ppr CT of the head personally reviewed showing no acute intracranial abnormality. Stable cerebral atrophy and white matter small vessel ischemic changes with scattered old lacunar infarcts. Tylenol prn CAD s/p stenting in the past Patient denies any complaints of chest pain troponin 0.03 Cardiac monitoring resume home dose of ASA pending GB US results HTN Resume patient on home dose of antihypertensives Monitor BP and adjust treatment accordingly History of CVA Resume home dose of Plavix and atorvastatin Glaucoma Resume home eyedrops DVT prophylaxis- Bilateral SCD/TERESA velasquez Discussed Condition With Patient, nurse Discharge Planning DC home with home health in stable condition to follow up as OP with PCP and consultants. Diet healthy heart diet as tolerated Activity ad isacc as tolerated, fall precautions has a walker at home. PT also at DC Meds per med reconciliations. Va Sam MD Dec 28, 2016 08:02
[2016-12-28] MEDS: traMADol HCL 50 MG TAB PO PRN (08:30)
[2016-12-28] MEDS ORDERED: VALSARTAN 160 MG TAB PO SCH (09:00)
[2016-12-28] MEDS ORDERED: ASPIRIN EC 81 MG TABEC PO SCH (09:00)
[2016-12-28] MEDS ORDERED: CLOPIDOGREL 75 MG TAB PO SCH (09:00)
[2016-12-28 09:10] LABS: AUTOMATED NEUTROPHIL # 2.8 TH/MM3 (1.8-7.7); BASOPHIL % 0.4 % (0.0-2.0); EOSINOPHIL # 0.1 TH/MM3 (0-0.4); EOSINOPHIL % 2.6 % (0.0-4.0); HEMO FLAGS DIFF FINAL; LYMPH % 22.7 % (9.0-44.0); MEAN CORPUSCULAR HGB CONC 33.4 % (32.0-36.0); MONO % 12.2 % (0.0-8.0); NEUT % 62.1 % (16.0-70.0); PLATELET COUNT 333 TH/MM3 (150-450); RED BLOOD COUNT 3.56 MIL/MM3 (4.00-5.30); RED CELL DISTRIBUTION WIDTH 20.2 % (11.6-17.2); WHITE BLOOD COUNT 4.5 TH/MM3 (4.0-11.0)
[2016-12-28] MEDS ORDERED: NORC5TAB PO (09:29)
[2016-12-28] MEDS ORDERED: KLYTECL PO (09:31)
--- NOTE | 2016-12-28 09:31 | HHI.DCPOC ---
Discharge Care Plan Goals to Promote Your Health * To prevent worsening of your condition and complications * To maintain your health at the optimal level Directions to Meet Your Goals Take your medications as prescribed Follow your dietary instruction Follow activity as directed Keep your appointments as scheduled Take your immunizations and boosters as scheduled If your symptoms worsen call your PCP, if no PCP go to Urgent Care Center or Emergency Room Smoking is Dangerous to Your Health. Avoid second hand smoke Call the 24-hour hour crisis hotline for domestic abuse at Va Sam MD Dec 28, 2016 09:31
[2016-12-28] MEDS ORDERED: FAMO20TA2 PO (09:38)
[2016-12-28] MEDS ORDERED: IBUP400T20 PO (09:38)
--- NOTE | 2016-12-28 09:40 | HHI.FF ---
Face to Face Verification Diagnosis: (1) Failure to thrive in adult (2) Vomiting (3) Hypokalemia (4) Weakness (5) CVA (cerebral vascular accident) (6) CAD (coronary artery disease) (7) Decreased ambulation status Physical Therapy Order: Evaluate and Treat Home Health Nursing Order: Medical education Signs/symptoms of disease process Medication education-adverse effect Nursing assessment with vital signs I have seen patient Falguni Cheek on 12/28/16. My clinical findings support the need for the requested home health care services because: Ltd mobility - disease progression I certify that my clinical findings support that this patient is homebound because: Post-op weakness Unsteady gait/balance Va Sam MD Dec 28, 2016 09:40
[2016-12-28 09:42] LABS: POTASSIUM 3.2 MEQ/L (3.5-5.1)
[2016-12-28] MEDS ORDERED: THERTAB15 PO (09:45)
[2016-12-28] MEDS ORDERED: IBUPROFEN 400 MG TAB PO ONE (11:00)
[2016-12-28] MEDS ORDERED: MULTIVITAMIN TAB PO SCH (11:00)
== END 2016-12-28 11:33 | disposition home or self-care (01) ==
LOC: NEPE 07:19 → NEDA 11:28 → NEPGCP 14:15
PROVIDERS: ADMIT Hospitalist; ATTEND Hospitalist
DX: E87.6 Hypokalemia (principal); Z98.818 Other dental procedure status; R62.7 Adult failure to thrive; I25.10 Atherosclerotic heart disease of native coronary artery without angina pectoris; I13.0 Hypertensive heart and chronic kidney disease with heart failure and stage 1 through stage 4 chronic kidney disease, or unspecified chronic kidney disease; N18.3 Chronic kidney disease, stage 3 (moderate); I50.9 Heart failure, unspecified; Z86.73 Personal history of transient ischemic attack (TIA), and cerebral infarction without residual deficits; R51 Headache; D72.819 Decreased white blood cell count, unspecified; R63.4 Abnormal weight loss; H40.9 Unspecified glaucoma; R56.9 Unspecified convulsions; K21.9 Gastro-esophageal reflux disease without esophagitis; R07.9 Chest pain, unspecified; Z95.5 Presence of coronary angioplasty implant and graft; Z87.442 Personal history of urinary calculi; Z96.651 Presence of right artificial knee joint
CPT/HCPCS: 70450; 74176; 76705; 80048; 80053; 81001; 82550; 83690; 83735; 84132; 84484; 85025; 92610; 93005; 96361; 96365; 96366; 96375; 97162; 99285; G0378; G8987; G8988; J2405; J2765; J3480; J7030; Q9963

== ENCOUNTER 2017-03-09 20:58 | Observation (INO) | payer OTHER ==
[~2017-03-09 20:58] MED LIST changes: -ASPI-110 PO; +ASPI1TAB57 PO; +FAMO20TA2 PO; +IBUP1TAB5 PO; +KLYTECL PO; -LEVE500 PO; +NORC5TAB PO; -POTA-163 PO; +THERTAB15 PO
[2017-03-09 20:59] VITALS: BP 167/89; PULSE 71; RESP 18; TEMP 99; O2SAT 97
[2017-03-10] VITALS (9 sets, daily range): BP systolic 125–152; BP diastolic 65–85; PULSE 56–82; RESP 14–18; TEMP 96.7–97.5; O2SAT 97–100
[2017-03-10] MEDS ORDERED: SODIUM CHLORIDE 0.9% FLUSH 10 ML FLUSH IV FLUSH PRN ×2 (00:15→04:45)
--- NOTE | 2017-03-10 00:41 | PD ---
HPI Chief Complaint: Medical Clearance Time Seen by Provider: 23:55 Travel History International Travel<30 days: No Contact w/Intl Traveler<30days: No Traveled to known affect area: No History of Present Illness HPI This is a 77-year-old female who presents to the emergency department with dizziness and instability on her feet that is constant, causing her to fall over when she walks, associated with several episodes of vomiting and some nausea. She says that this started after her neurologist Dr. Ibarra put her on gabapentin. She's been taking gabapentin 300 mg 3 times a day for a little over a week. She says she was put on it because she was having difficulty sleeping. She stopped taking the medicine yesterday but continues today to be unable to walk. She has had intermittent headaches on the top of her head. PFSH Past Medical History Arthritis: Yes Asthma: No Autoimmune Disease: No Blood Disorders: No Heart Rhythm Problems: No Cancer: No Cardiac Catheterization: Yes Cardiovascular Problems: Yes High Cholesterol: Yes Chest Pain: Yes Congestive Heart Failure: Yes COPD: No Cerebrovascular Accident: Yes Coronary Artery Disease: Yes Diabetes: No Diminished Hearing: No Endocrine: No Gastrointestinal Disorders: Yes GERD: Yes Glaucoma: No Genitourinary: No Headaches: No Hepatitis: Yes Hiatal Hernia: No Hypertension: Yes Immune Disorder: No Implanted Vascular Access Dvce: Yes Kidney Stones: Yes Musculoskeletal: No Neurologic: No Psychiatric: No Reproductive: No Respiratory: Yes Integumentary: No Migraines: Yes Seizures: Yes Sleep Apnea: No Thyroid Disease: No Ulcer: No Past Surgical History AICD: No Arteriovenous Shunt: No Body Medical Devices: ROOT CANAL Cardiac Surgery: Yes (2 STENT PLACEMENTS) Coronary Stent: Yes Gynecologic Surgery: Yes (HYSTERECTOMY) Hysterectomy: Yes Insulin Pump: No Joint Replacement: Yes Pacemaker: No Other Surgery: No Social History Alcohol Use: No Tobacco Use: No Substance Use: No Allergies-Medications (Allergen,Severity, Reaction): Coded Allergies: acetaminophen (Unverified Allergy, Severe, 03/09/17) morphine (Unverified Allergy, Severe, 03/09/17) oxycodone (Unverified Allergy, Severe, 03/09/17) tuberculin, purified protein deriva (Unverified Allergy, Severe, REDNESS, SWELLING, 03/09/17) Uncoded Allergies: TB LUZ TEST (Allergy, Intermediate, REDNESS, SWELLING, 10/02/08) Reported Meds & Prescriptions Reported Meds & Active Scripts Active Thera/Beta-Carotene (Multiple Vitamin) 1 Tab Tab 1 Tab PO DAILY Ibuprofen 400 Mg Tab 400 Mg PO Q12HR PRN Famotidine 20 Mg Tab 20 Mg PO BID Effervescent Potassium Chloride 25 Meq (Potassium Bicarb/Potassium Chloride) 25 Meq Tab 25 Meq PO DAILY [place] (Hydrocodone-Acetaminophen) 5-325 mg Tab 1 Tab PO Q6H PRN Bedside Commode (Device) 1 Mis Mis 1 Ea .ROUTE DIRECTED Walker/Adult/Folding (Device) 1 Mis Mis 1 Ea .ROUTE DIRECTED Quetiapine (Quetiapine Fumarate) 25 Mg Tab 25 Mg PO HS Diovan (Valsartan) 160 Mg Tab 160 Mg PO DAILY 30 Days Reported Amlodipine (Amlodipine Besylate) 10 Mg Tab 10 Mg PO DAILY Aspirin 81 (Aspirin) 81 Mg Tabdr 81 Mg PO DAILY Atorvastatin (Atorvastatin Calcium) 40 Mg Tab 40 Mg PO HS Brimonidine Opth Drops (Brimonidine Tartrate) 0.2% Soln 1 Drop EACH EYE BID Clonidine (Clonidine HCl) 0.1 Mg Tab 0.1 Mg PO TID PRN Plavix (Clopidogrel Bisulfate) 75 Mg Tab 75 Mg PO DAILY Cosopt Opth Drops (Dorzolamide-Timolol Opth Drops) 22.3-6.8 Mg/Ml Soln 1 Drop EACH EYE BID Review of Systems Except as stated in HPI: all other systems reviewed are Neg Physical Exam Narrative GENERAL:Well appearing, no acute distress SKIN: Focused skin assessment warm and dry. HEAD: Atraumatic. Normocephalic. EYES: Pupils equal and round. No injection or drainage. ENT: Moist mucous membranes NECK: Trachea midline. CARDIOVASCULAR: Regular rate and rhythm. No murmur appreciated. RESPIRATORY: Clear to auscultation. Breath sounds equal bilaterally. GASTROINTESTINAL: Abdomen soft, non-tender, nondistended. MUSCULOSKELETAL: No obvious deformities. NEUROLOGICAL: Awake and alert. No obvious cranial nerve deficits. No dysarthria or aphasia. No upper or lower extremity drift. No upper extremity ataxia. Visual suarez intact. Patient falls to the side when she stands and is unable to take a step without being very unsteady. PSYCHIATRIC: Appropriate mood and affect; insight and judgment normal. Data Data Last Documented VS Vital Signs Date Time Temp Pulse Resp B/P (MAP) Pulse Ox O2 Delivery O2 Flow Rate FiO2 03/09/17 20:59 99.0 71 18 167/89 (115) 97 Room Air Orders Orders Electrocardiogram (03/10/17 00:13) Complete Blood Count With Diff (03/10/17 00:13) Comprehensive Metabolic Panel (03/10/17:13) Troponin I (03/10/17 00:13) Urinalysis - C+S If Indicated (03/10/17 00:13) Ct Brain W/O Iv Contrast(Rout) (03/10/17 00:13) Blood Glucose (03/10/17:13) Ecg Monitoring (03/10/17:) Iv Access Insert/Monitor (03/10/17:) Oximetry (03/10/17:) Sodium Chloride 0.9% Flush (Ns Flush) (03/10/17 00:15) Drug Screen, Random Urine (03/10/17:) Alcohol (Ethanol) (03/10/17:13) MDM Medical Decision Making Medical Screen Exam Complete: Yes Emergency Medical Condition: Yes Interpretation(s) Afebrile, hypertensive EKG: Normal sinus rhythm, left bundle branch block similar to prior Differential Diagnosis Stroke, intracranial hemorrhage, medication side effect Narrative Course This is a 77-year-old female who presents to the emergency department with dizziness and instability on her feet. Her symptoms of been going on for 1 week. She correlates it to starting gabapentin which was initiated by her neurologist. She does have a history of stroke in the past. She was placed on a monitor and an IV was established. On exam she has a normal neurologic exam except when she stands she falls to the side and she is completely unable to take one to 2 steps without being unsteady. My concern would be that the patient has had a stroke. Alternatively this may be a side effect of her gabapentin but I don't think she is safe for discharge given her inability to ambulate. Patient will be admitted following labs and CT imaging for neurology evaluation and physical therapy evaluation. Nikki Cedillo MD Mar 10, 2017 00:41
[2017-03-10 00:54] LABS: BILIRUBIN, URINE NEG (NEG); BLOOD, URINE NEG (NEG); GLUCOSE,URINE NEG (NEG); KETONE, URINE NEG (NEG); NITRITE,URINE NEG (NEG); PH, URINE 6.5 (5.0-8.5); SQUAMOUS EPITHELIAL CELL URINE <1 /hpf (0-5); URINE COLOR LIGHT-YELLOW (YELLW/STRAW); URINE LEUKOCYTE ESTERASE NEG (NEG)
--- NOTE | 2017-03-10 01:09 | RADRPT ---
EXAM DATE/TIME: 03/10/2017 00:34 [facility] COMPARISON: CT BRAIN W/O CONTRAST, December 27, 2016, 9:58. INDICATIONS : Dizziness. RADIATION DOSE: 56.35 CTDIvol (mGy) MEDICAL HISTORY : Hypertension. Seizures. Stroke. SURGICAL HISTORY : None. ENCOUNTER: Initial ACUITY: 1 day PAIN SCALE: 0/10 LOCATION: cranial TECHNIQUE: Multiple contiguous axial images were obtained of the head. Using automated exposure control and adj ustment of the mA and/or kV according to patient size, radiation dose was kept as low as reasonably a chievable to obtain optimal diagnostic quality images. DICOM format image data is available electro nically for review and comparison. FINDINGS: Noncontrast axial head CT demonstrates the ventricles to be normal in size and configuration with a n ormal sulcal pattern. No acute intracranial hemorrhage, acute cortical infarction, mass or midline sh ift is seen. 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 Bone windows are unremarkable. CONCLUSION: 1. No evidence of acute intracranial pathology. No masses are identified. 2. 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 This report was verified electronically.
[2017-03-10 01:47] LABS: AUTOMATED NEUTROPHIL # 2.6 TH/MM3 (1.8-7.7); EOSINOPHIL # 0.3 TH/MM3 (0-0.4); EOSINOPHIL % 5.7 % (0.0-4.0); HEMATOCRIT 34.9 % (35.0-46.0); HEMOGLOBIN 11.5 GM/DL (11.6-15.3); LYMPH % 29.2 % (9.0-44.0); LYMPHOCYTE # 1.3 TH/MM3 (1.0-4.8); MEAN CORPUSCULAR HEMOGLOBIN 29.7 PG (27.0-34.0); MEAN PLATELET VOLUME 7.1 FL (7.0-11.0); MONO % 8.8 % (0.0-8.0); MONOCYTE # 0.4 TH/MM3 (0-0.9); NEUT % 55.3 % (16.0-70.0); PLATELET COUNT 384 TH/MM3 (150-450); RED BLOOD COUNT 3.88 MIL/MM3 (4.00-5.30); RED CELL DISTRIBUTION WIDTH 16.3 % (11.6-17.2); WHITE BLOOD COUNT 4.6 TH/MM3 (4.0-11.0)
[2017-03-10 03:08] LABS: ALBUMIN 3.3 GM/DL (3.4-5.0); AST (GOT) 20 U/L (15-37); BICARBONATE 25.2 MEQ/L (21.0-32.0); BLOOD UREA NITROGEN 11 MG/DL (7-18); CALCIUM 8.3 MG/DL (8.5-10.1); CHLORIDE 108 MEQ/L (98-107); CREATININE 0.67 MG/DL (0.50-1.00); GLOMERULAR FILTRATION RATE 104 ML/MIN (>89); GLUCOSE,RANDOM 89 MG/DL (74-106); SODIUM (NA) 142 MEQ/L (136-145)
[2017-03-10 03:13] LABS: ALKALINE PHOSPHATASE 51 U/L (45-117); ALT (GPT) 26 U/L (10-53); TOTAL BILIRUBIN ADULT 0.2 MG/DL (0.2-1.0); TOTAL PROTEIN 6.7 GM/DL (6.4-8.2); TROPONIN I 0.03 NG/ML (0.02-0.05)
--- NOTE | 2017-03-10 03:50 | PD ---
Physical Exam Date Seen by Provider: Mar 10, 2017 Time Seen by Provider: 03:47 Data Data Last Documented VS Vital Signs Date Time Temp Pulse Resp B/P (MAP) Pulse Ox O2 Delivery O2 Flow Rate FiO2 03/10/17 02:06 78 18 152/77 (102) 97 Room Air 03/09/17 20:59 99.0 Orders Orders Electrocardiogram (03/10/17 00:13) Complete Blood Count With Diff (03/10/17 00:13) Comprehensive Metabolic Panel (03/10/17 00:13) Troponin I (03/10/17 00:13) Urinalysis - C+S If Indicated (03/10/17 00:13) Ct Brain W/O Iv Contrast(Rout) (03/10/17 00:13) Blood Glucose (03/10/17 00:13) Ecg Monitoring (03/10/17 00:13) Iv Access Insert/Monitor (03/10/17 00:13) Oximetry (03/10/17 00:13) Sodium Chloride 0.9% Flush (Ns Flush) (03/10/17 00:15) Drug Screen, Random Urine (03/10/17 00:13) Alcohol (Ethanol) (03/10/17 00:13) Admit Order (Ed Use Only) (03/10/17 ) Crew Boat Operator / Telemetry [id number] (03/10/17 04:07) Diet Npo (03/10/17 Breakfast) Activity Oob With Assistance (03/10/17 04:07) Notify Dr: Other (03/10/17 04:07) Electrocardiogram (03/10/17 04:09) Labs Laboratory Tests Test 03/10/17 00:38 03/10/17 01:30 03/10/17 02:40 Urine Color LIGHT-YELLOW Urine Turbidity CLEAR Urine pH 6.5 Urine Specific [place] 1.007 Urine Protein NEG mg/dL Urine Glucose (UA) NEG mg/dL Urine Ketones NEG mg/dL Urine Occult Blood NEG Urine Nitrite NEG Urine Bilirubin NEG Urine Urobilinogen LESS THAN 2.0 MG/DL Urine Leukocyte Esterase NEG Urine RBC LESS THAN 1 /hpf Urine WBC 1 /hpf Urine Squamous Epithelial Cells <1 /hpf Microscopic Urinalysis Comment CATH-CULT NOT IND Urine Opiates Screen NEG Urine Barbiturates Screen NEG Urine Amphetamines Screen NEG Urine Benzodiazepines Screen NEG Urine Cocaine Screen NEG Urine Cannabinoids Screen NEG White Blood Count 4.6 TH/MM3 Red Blood Count 3.88 MIL/MM3 Hemoglobin 11.5 GM/DL Hematocrit 34.9 % Mean Corpuscular Volume 90.0 FL Mean Corpuscular Hemoglobin 29.7 PG Mean Corpuscular Hemoglobin Concent 33.0 % Red Cell Distribution Width 16.3 % Platelet Count 384 TH/MM3 Mean Platelet Volume 7.1 FL Neutrophils (%) (Auto) 55.3 % Lymphocytes (%) (Auto) 29.2 % Monocytes (%) (Auto) 8.8 % Eosinophils (%) (Auto) 5.7 % Basophils (%) (Auto) 1.0 % Neutrophils # (Auto) 2.6 TH/MM3 Lymphocytes # (Auto) 1.3 TH/MM3 Monocytes # (Auto) 0.4 TH/MM3 Eosinophils # (Auto) 0.3 TH/MM3 Basophils # (Auto) 0.0 TH/MM3 CBC Comment DIFF FINAL Differential Comment Blood Urea Nitrogen 11 MG/DL Creatinine 0.67 MG/DL Random Glucose 89 MG/DL Total Protein 6.7 GM/DL Albumin 3.3 GM/DL Calcium Level 8.3 MG/DL Alkaline Phosphatase 51 U/L Aspartate Amino Transf (AST/SGOT) 20 U/L Alanine Aminotransferase (ALT/SGPT) 26 U/L Total Bilirubin 0.2 MG/DL Sodium Level 142 MEQ/L Potassium Level 3.3 MEQ/L Chloride Level 108 MEQ/L Carbon Dioxide Level 25.2 MEQ/L Anion Gap 9 MEQ/L Estimat Glomerular Filtration Rate 104 ML/MIN Troponin I 0.03 NG/ML Ethyl Alcohol Level LESS THAN 3 MG/DL [facility] Medical Record Reviewed: Yes Supervised Visit with DIAZ: Yes Interpretation(s) EKG: Sinus bradycardia with second-degree [place] block, incomplete bundle branch block. No acute ST-T wave changes. CBC & BMP Diagram 03/10/17 01:30 03/10/17 02:40 Total Protein 6.7, Albumin 3.3 L, Calcium Level 8.3 L, Alkaline Phosphatase 51, Aspartate Amino Transf (AST/SGOT) 20, Alanine Aminotransferase (ALT/SGPT) 26, Total Bilirubin 0.2 Last [address] 03/10/17 0013 Signed Impressions: Service Date/Time: February 00:34 - CONCLUSION: 1. No evidence of acute intracranial pathology. No masses are identified. 2. 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 Narrative Course I was asked to follow-up on this patient's laboratory testing and CAT scan results. I was advised to contact the admitting service to have the patient observed overnight and have Dr. Hilliard her neurologist see her. The patient had started a new medication gabapentin for allegedly insomnia. The patient states that soon after starting the medication she has been very dizzy, lightheaded and off balance. Patient has difficulty ambulating. Patient has had a fall at home. The case has been discussed with who has agreed to admit the patient to an observation status. This is dizziness, history of CVA, rule out medication reaction Diagnosis Primary Impression: dizziness Additional Impressions: History of CVA (cerebrovascular accident) rule out medication reaction Condition: Stable Aries Lujan Mar 10, 2017 03:50
[2017-03-10] MEDS ORDERED: NALOXONE HCL 0.4 MG/ML AMP IV PUSH PRN (04:45)
[2017-03-10] MEDS ORDERED: cloNIDine HCL 0.1 MG TAB PO PRN (09:00)
[2017-03-10] MEDS: DORZOLAMIDE/TIMOLOL OPTH SOLN 10 ML BTL EACH EYE SCH ×2 (09:00→20:19)
[2017-03-10] MEDS: BRIMONIDINE TARTRATE 0.2% OPHT SOLN 5 ML BTL EACH EYE SCH ×2 (09:00→20:19)
[2017-03-10] MEDS: FAMOTIDINE 20 MG TAB PO SCH ×2 (09:35→20:18)
[2017-03-10] MEDS: VALSARTAN 160 MG TAB PO SCH (09:35)
[2017-03-10] MEDS: ACETAMINOPHEN/HYDROcodone 325 MG/5 MG TAB PO PRN (09:36)
[2017-03-10] MEDS: SODIUM CHLORIDE 0.9% FLUSH 10 ML FLUSH IV FLUSH SCH ×2 (09:40→20:19)
[2017-03-10] MEDS ORDERED: ACETAMINOPHEN 325 MG TAB PO ONE (10:15)
--- NOTE | 2017-03-10 10:18 | MB ---
cc: FAZAL PALACIOS M.D. DATE OF CONSULTATION 03/10/2017 HISTORY A 77-year-old right-handed woman with hypertension. She said she may have had a stroke when she was 29 years old with a headache but no focal deficits. Nevertheless she appears to have headaches almost every other day. Three weeks ago she may have been given a medication she says initially for sleep and but she was taking it three times a day, then she mentioned something about tramadol so her history is not very coherent. I am asked to see her for dizziness. She has had a headache all over her head, throbbing today, she says. She says she feels dizzy with no true vertigo. No fevers. I had actually seen her in July of 2016 and noted she had a history of [place], CABG, cardiac stent, stroke 20 years ago, generalized weakness at that time, hypercholesterolemia. She was having a headache and trouble talking. She was on 325 mg of aspirin. At home she had been on 81 of aspirin. She has a mild anemia. Her urine drug screen is positive for benzos. CTA of the neck and [place] of [place] was normal. CT of the brain showed old left white matter change. When I saw her in July, her EEG showed some spike-wave activity. Her MRI of the brain was negative. I thought she probably had a postictal/interictal EEG. We did treat her with some acyclovir. She was on Keppra. We added Depakote. Her EEG improved. She was wound up going to rehab. She has not been following up with me in the office. She came in with dizziness and instability on her feet, several episodes of nausea and vomiting. Dr. Francois evidently sees her in his office and put her on gabapentin 300 t.i.d. about a week prior, evidently she was having difficulty sleeping and she stopped the medication. ALLERGIES ACETAMINOPHEN. MORPHINE. OXYCODONE. TB. MEDICATIONS PRIOR 1. Plavix. 2. Klonopin. 3. Clonidine. 4. Some eye drops. 5. Atorvastatin. 6. 81 of aspirin. 7. Amlodipine. 8. Seroquel 25 at bedtime. 9. Diovan. 10. [place] p.r.n. 11. Plavix. PHYSICAL EXAMINATION VITAL SIGNS: On exam 56-78, 14, 144/65, afebrile. NECK: There were no carotid bruits. HEART: Regular rhythm. I do not detect a murmur. NEUROLOGIC: Pupils are equally. Visual suarez are full. Extraocular movements intact without nystagmus. Face is symmetric with normal sensation. Tongue was midline. There is no drift. She had normal strength in upper and lower extremities bilaterally. DTRs are trace throughout. Toes are downgoing bilaterally. Pinprick is intact throughout. She is not ataxic on [id number]. She had normal gait. Hallpike maneuver was negative bilaterally. Temples were nontender bilaterally. LABORATORY DATA CBC is normal. Sed rate was 53 in July of last year. RPR has been negative. SIDDHARTHA has been negative. Urine drug screen was negative. UA is negative. Coags have been normal. Basic metabolic profile essentially normal. LFTs, troponin, B12 have been normal. Thyroid has been normal in the past. She had a CAT scan of the brain last night and that is essentially normal on review of the films. She has some calcification of the arteries and some other calcifications within the brain, unclear etiology, not only of the arteries but appears to be to some extent in the extra-arterial region, hard to say. this is appears to be primarily unchanged compared to a prior scan in July. IMPRESSION I think she looks well neurologically. It may have just been a reaction to the gabapentin. She was, however, admitted with significant abnormalities on her EEG and should have been on a seizure medicine which currently she is not. RECOMMENDATIONS 1. I can restart her back on at least some Keppra at this time 500 b.i.d. 2. She may be having some chronic headaches that we can consider treating in the future. 3. I should see her back in the office next week and we will try to manage her as an outpatient but I thought today she looked well neurologically. 4. So for now we will just put her on Keppra 250 b.i.d. to start. We will just recheck an EEG on her today, a sed rate with the headache and MRI of the brain. If these sed rate and MRI are negative, she could go home as long as the EEG has been done. 5. We will check a standing blood pressure on her also to make sure she is not orthostatic before she is discharged. Fazal Palacios MD DJMitchel/SSB /9:15 AM /9:47 AM
--- NOTE | 2017-03-10 13:44 | HHI.HP ---
[facility] Unknown Admission Diagnosis dizziness, history of CVA Diagnoses: Chief Complaint: Dizziness nausea vomiting Travel History International Travel<30 Days: No Contact w/Intl Traveler <30 Da: No Traveled to Known Affected Are: No History of Present Illness 77 years old female presented to the ED with a complaint of his illness and instability on her feet, denied with multiple episodes of nausea and vomiting, no chest pain no short of breath, no blurry vision,. As it of intermittent headache She reported following up with neurologist Dr. Hilliard and she was placed on gabapentin 300 mg 3 times a day about a week ago. Review of Systems All systems reviewed and was positive for what is mentioned in history of present illness otherwise negative Past Family Social History Past Medical History History of cardiac catheter coronary artery disease Hyperlipidemia CHF CVA hypertension, hepatitis, GRD, implanted vascular device, kidney stone, root canal, to stent placed, hysterectomy Past Surgical History As above Allergies: Coded Allergies: acetaminophen (Unverified Allergy, Severe, 03/09/17) morphine (Unverified Allergy, Severe, 03/09/17) oxycodone (Unverified Allergy, Severe, 03/09/17) tuberculin, purified protein deriva (Unverified Allergy, Severe, REDNESS, SWELLING, 03/09/17) Uncoded Allergies: TB LUZ TEST (Allergy, Intermediate, REDNESS, SWELLING, 10/02/08) Family History Review with the patient,not aware of significant medical history runs in his family Social History Denied tobacco alcohol or illicit drug abuse Physical Exam Vital Signs Vital Signs Date Time Temp Pulse Resp B/P (MAP) Pulse Ox O2 Delivery O2 Flow Rate FiO2 03/10/17 12:50 60 14 138/72 (94) 98 Room Air 03/10/17 08:26 56 14 144/65 (91) 100 Room Air 03/10/17 02:06 78 18 152/77 (102) 97 Room Air 03/10/17 01:43 97 Room Air 03/09/17 20:59 99.0 71 18 167/89 (115) 97 Room Air Physical Exam GENERAL: This is a well-nourished, well-developed patient, in no apparent distress. SKIN: No rashes, ecchymoses or lesions. Cool and dry. HEAD: Atraumatic. Normocephalic. No temporal or scalp tenderness. EYES: Pupils equal round and reactive. Extraocular motions intact. No scleral icterus. No injection or drainage. ENT: Nose without bleeding, purulent drainage or septal hematoma. Throat without erythema, tonsillar hypertrophy or exudate. Uvula midline. Airway patent. NECK: Trachea midline. No JVD or lymphadenopathy. Supple, nontender, no meningeal signs. CARDIOVASCULAR: Regular rate and rhythm without murmurs, gallops, or rubs. RESPIRATORY: Clear to auscultation. Breath sounds equal bilaterally. No wheezes , rales, or rhonchi. GASTROINTESTINAL: Abdomen soft, non-tender, nondistended. No hepato-splenomegaly , or palpable masses. No guarding. MUSCULOSKELETAL: Extremities without clubbing, cyanosis, or edema. No joint tenderness, effusion, or edema noted. No calf tenderness. Negative Homans sign bilaterally. NEUROLOGICAL: Awake and alert. Cranial nerves II through XII intact. Motor and sensory grossly within normal limits. Five out of 5 muscle strength in all muscle groups. Normal speech. Laboratory Laboratory Tests Test 03/10/17 00:38 03/10/17 01:30 03/10/17 02:40 Urine Color LIGHT-YELLOW Urine Turbidity CLEAR Urine pH 6.5 Urine Specific [place] 1.007 Urine Protein NEG Urine Glucose (UA) NEG Urine Ketones NEG Urine Occult Blood NEG Urine Nitrite NEG Urine Bilirubin NEG Urine Urobilinogen LESS THAN 2.0 Urine Leukocyte Esterase NEG Urine RBC LESS THAN 1 Urine WBC 1 Urine Squamous Epithelial Cells <1 Microscopic Urinalysis Comment CATH-CULT NOT IND Urine Opiates Screen NEG Urine Barbiturates Screen NEG Urine Amphetamines Screen NEG Urine Benzodiazepines Screen NEG Urine Cocaine Screen NEG Urine Cannabinoids Screen NEG White Blood Count 4.6 Red Blood Count 3.88 Hemoglobin 11.5 Hematocrit 34.9 Mean Corpuscular Volume 90.0 Mean Corpuscular Hemoglobin 29.7 Mean Corpuscular Hemoglobin Concent 33.0 Red Cell Distribution Width 16.3 Platelet Count 384 Mean Platelet Volume 7.1 Neutrophils (%) (Auto) 55.3 Lymphocytes (%) (Auto) 29.2 Monocytes (%) (Auto) 8.8 Eosinophils (%) (Auto) 5.7 Basophils (%) (Auto) 1.0 Neutrophils # (Auto) 2.6 Lymphocytes # (Auto) 1.3 Monocytes # (Auto) 0.4 Eosinophils # (Auto) 0.3 Basophils # (Auto) 0.0 CBC Comment DIFF FINAL Differential Comment Blood Urea Nitrogen 11 Creatinine 0.67 Random Glucose 89 Total Protein 6.7 Albumin 3.3 Calcium Level 8.3 Alkaline Phosphatase 51 Aspartate Amino Transf (AST/SGOT) 20 Alanine Aminotransferase (ALT/SGPT) 26 Total Bilirubin 0.2 Sodium Level 142 Potassium Level 3.3 Chloride Level 108 Carbon Dioxide Level 25.2 Anion Gap 9 Estimat Glomerular Filtration Rate 104 Troponin I 0.03 Ethyl Alcohol Level LESS THAN 3 Result Diagram: 03/10/17 0130 03/10/17 0240 Imaging Last Impressions Brain MRI 03/10/17 0930 Signed Impressions: Service Date/Time: February 14:41 - CONCLUSION: 1. No acute hemorrhage or mass effect. There is no acute infarction. 2. Atrophy and chronic small vessel ischemic changes are again noted as well as small lacunar infarcts. Gopi Villavicencio MD Head CT 03/10/17 0013 Signed Impressions: Service Date/Time: February 00:34 - CONCLUSION: 1. No evidence of acute intracranial pathology. No masses are identified. 2. 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 MD Krystal Gusman VTE Risk Assessment Caprini VTE Risk Assessment: Mod/High Risk (score >= 2) Caprini Risk Assessment Model Point Value = 1 Point Value = 2 Point Value = 3 Point Value = 5 Age 41-60 Minor surgery BMI > 25 kg/m2 Swollen legs Varicose veins or History of unexplained or recurrent spontaneous Oral contraceptives or hormone replacement Sepsis (< 1 month) Serious lung disease, including pneumonia (< 1 month) Abnormal pulmonary function Acute myocardial infarction Congestive heart failure (< 1 month) History of inflammatory bowel disease Medical patient at bed rest Age 61-74 Arthroscopic surgery Major open surgery (> 45 min) Laparoscopic surgery (> 45 min) Malignancy Confined to bed (> 72 hours) Immobilizing plaster cast Central venous access Age >= 75 History of VTE Family history of VTE Factor V Leiden Prothrombin [id number] Lupus anticoagulant Anticardiolipin antibodies Elevated serum homocysteine Heparin-induced thrombocytopenia Other congenital or acquired thrombophilia Stroke (< 1 month) Elective arthroplasty Hip, pelvis, or leg fracture Acute spinal cord injury (< 1 month) Prophylaxis Regimen Total Risk Factor Score Risk Level Prophylaxis Regimen 0-1 Low Early ambulation 2 Moderate Order ONE of the following: *Sequential Compression Device (SCD) *Heparin 5000 units SQ BID 3-4 Higher Order ONE of the following medications: *Heparin 5000 units SQ TID *Enoxaparin/Lovenox 40 mg SQ daily (WT < 150 kg, CrCl > 30 mL/min) *Enoxaparin/Lovenox 30 mg SQ daily (WT < 150 kg, CrCl > 10-29 mL/min) *Enoxaparin/Lovenox 30 mg SQ BID (WT < 150 kg, CrCl > 30 mL/min) AND/OR *Sequential Compression Device (SCD) 5 or more Highest Order ONE of the following medications: *Heparin 5000 units SQ TID (Preferred with Epidurals) *Enoxaparin/Lovenox 40 mg SQ daily (WT < 150 kg, CrCl > 30 mL/min) *Enoxaparin/Lovenox 30 mg SQ daily (WT < 150 kg, CrCl > 10-29 mL/min) *Enoxaparin/Lovenox 30 mg SQ BID (WT < 150 kg, CrCl > 30 mL/min) AND *Sequential Compression Device (SCD) Assessment and Plan Assessment and Plan 77 years old female admitted with dizziness nausea vomiting after starting gabapentin Unspecified dizziness with nausea vomiting mostly reaction to gabapentin, neurology consulted recommended restarting Keppra 500 mg by mouth twice a day, MRI and EEG and ESR, if those all are negative patient can be discharged and follow up as an outpatient Hypokalemia: Replete PT OT Discussed Condition With Discharge patient to home Condition on discharge: Improved Regular Diet as tolerated Ad No activity seizure and fall precaution Rx written: See med rec Keppra 500 mg by mouth twice a day Follow-up with primary care physician and neurology as an outpatient in one week Rochelle Olivares MD Mar 10, 2017 13:44
[2017-03-10] MEDS ORDERED: LEVE250 PO (13:46)
[2017-03-10] MEDS ORDERED: GADODIAMIDE PF 287 MG/ML 10 ML VIAL (for RAD MRI) IVCONTRAST ONE (15:00)
--- NOTE | 2017-03-10 15:14 | RADRPT ---
EXAM DATE/TIME: 03/10/2017 14:41 [place] COMPARISON: MRI BRAIN W & W/O CONTRAST, July 29, 2016, 16:00. INDICATIONS : CVA. Dizziness. CONTRAST: 10 cc Omniscan (gadodiamide) IV MEDICAL HISTORY : Stroke Congestive heart failure. Gastroesophageal reflux disease. Coronary artery disease and hyperte nsion. SURGICAL HISTORY : Total knee replacement, right. Hysterectomy. Coronary artery stent. ENCOUNTER: Initial ACUITY: 1 day PAIN SCORE: 0/10 LOCATION: Head. TECHNIQUE: Multiplanar, multisequence MRI of the brain was performed both prior to and following the administrat ion of paramagnetic contrast. FINDINGS: CEREBRUM: Mild cerebral atrophy is again noted with cortical and ventricular prominence. A partially empty sell a turcica is again noted. No evidence of midline shift, mass lesion, hemorrhage or acute infarction. There are old old small lacunar infarcts in the basal ganglia. No extraaxial fluid collections are s een. The pituitary gland and suprasellar cistern are normal in configuration. WHITE MATTER: On the flair weighted images there is increased signal noted in the periventricular and subcortical w rain matter consistent with chronic small vessel ischemic change. POSTERIOR FOSSA: The cerebellum and brainstem are intact. The 4th ventricle is midline. The cerebellopontine angle is unremarkable. The cerebellar tonsils are normal in position. DIFFUSION IMAGING: No focal areas of restricted diffusion are seen. No evidence of acute infarction. EXTRACRANIAL: The visualized portions of the orbits and paranasal sinuses are unremarkable. POST-CONTRAST: No abnormal areas of parenchymal or dural enhancement. No evidence of blood-brain barrier breakdown. CONCLUSION: 1. No acute hemorrhage or mass effect. There is no acute infarction. 2. Atrophy and chronic small vessel ischemic changes are again noted as well as small lacunar infarct s. Gopi Villavicencio MD on March 10, 2017 at 15:10 Board Certified Radiologist. This report was verified electronically.
--- NOTE | 2017-03-10 18:37 | EKG ---
Date Performed: 03/10/2017 Time Performed: 04:16:38 PTAGE: 77 years EKG: SINUS BRADYCARDIA WITH 2ND DEGREE AV BLOCK, MOBITZ TYPE II BORDERLINE RIGHT AXIS DEVIATION INTRAVENTRICULAR CONDUCTION DELAY ABNORMAL ECG PREVIOUS TRACING : 03/10/2017 00.27 SINCE PRIOR TRACING THERE HAS BEEN A SLIGHT SHIFT IN THE AX IS. OTHERWISE NO SIGNIFICANT CHANGE. DOCTOR: Laura Nayak Interpretating Date/Time 03/10/2017 18:36:17
--- NOTE | 2017-03-10 19:08 | HHI.PR ---
Addendum to Inpatient Note Additional Information Discharge patient to home Condition on discharge: Improved Healthy heart Diet as tolerated Ad No activity with seizure and fall precaution Rx written: Keppra 500 mg by mouth twice a day Follow-up with primary care physician and neurology in one week Rochelle Olivares MD Mar 10, 2017 19:08
[2017-03-10] MEDS ORDERED: POTASSIUM CHLORIDE 20 MEQ CONTROLLED RELEASE TAB PO ONE (19:15)
--- NOTE | 2017-03-10 20:13 | MG ---
cc: NASREEN OLSEN MD Lab No: Date: 03/10/17 Age: Sex: F Race: REFERRING PHYSICIAN Dr. Rouse MEDICAL HISTORY The patient is admitted for dizziness, instability on her feet causing her to fall over when she walks associated with nausea and vomiting, history of seizures, migraine, congestive heart failure, two stent placements, coronary artery disease, cardiac cath, gastroesophageal reflux disease, broken right pelvis, kidney stones, arthritis, right total knee replacement hypercholesterolemia. MEDICATIONS 1. Norvasc. 2. Pepcid. 3. [place] 4. Diovan DESCRIPTION The background activity is 10-11 Hz alpha located posteriorly bilateral and symmetrical superimposed by excess beta activity. During the recording, there is excessive muscle and eye blinking artifacts. Hyperventilation was omitted. Photic stimulation did not elicit a driving response. There were no electrographic seizures or epileptiform discharges noted during the recording. INTERPRETATION This is a normal awake EEG. Beta activity is a nonspecific finding that may indicate medication adverse effects like benzos and barbiturates. There was excessive muscle and eye blinking artifact during the recording. There were no electrographic seizures or epileptiform discharges noted. Clinical correlation is recommended. MD ZAFAR Mckeon/ /7:06 PM /7:59 PM [email or web address]
[2017-03-10] MEDS: levETIRAcetam 250 MG TAB PO SCH (20:18)
[2017-03-10] MEDS ORDERED: ATORVASTATIN 40 MG TAB PO SCH (21:00)
--- NOTE | 2017-03-10 21:00 | EKG ---
Date Performed: 03/10/2017 Time Performed: 00:27:33 PTAGE: 77 years EKG: Sinus rhythm WITH OCCASIONAL SUPRAVENTRICULAR PREMATURE COMPLEXES POSSIBLE LEFT ATRIAL ENLARGEMENT MARKED LEFT AX IS DEVIATION LEFT BUNDLE BRANCH BLOCK ABNORMAL ECG PREVIOUS TRACING : 12/27/2016 08.12 SINCE PRIOR TRACING NO SIGNIFICANT CHANGE NOTED DOCTOR: Laura Nayak Interpretating Date/Time 03/10/2017 21:00:07
[2017-03-11 01:22] VITALS: BP 134/83; PULSE 72; RESP 16; TEMP 98; O2SAT 95
[2017-03-11 04:47] VITALS: BP 136/86; PULSE 57; RESP 16; TEMP 98.1; O2SAT 98
[2017-03-11] MEDS: ACETAMINOPHEN/HYDROcodone 325 MG/5 MG TAB PO PRN (04:54)
[2017-03-11 05:10] VITALS: PULSE 64
--- NOTE | 2017-03-11 07:24 | HHI.PR ---
Objective Vital Signs Date Time Temp Pulse Resp B/P (MAP) Pulse Ox O2 Delivery O2 Flow Rate FiO2 03/11/17 05:58 15 03/11/17 05:10 64 03/11/17 04:47 98.1 57 16 136/86 (103) 98 03/11/17 01:22 98.0 72 16 134/83 (100) 95 03/10/17 23:33 66 03/10/17 20:57 97.5 75 16 146/85 (105) 97 139/87 (104) 125/81 (96) 03/10/17 19:21 69 03/10/17 17:00 81 03/10/17 16:46 96.7 82 15 152/78 (102) 100 03/10/17 12:50 60 14 138/72 (94) 98 Room Air 03/10/17 08:26 56 14 144/65 (91) 100 Room Air I/O 03/10/17 03/10/17 03/10/17 03/11/17 03/11/17 03/11/17 07:00 15:00 23:00 07:00 15:00 23:00 Intake Total 750 ml Balance 750 ml Intake Oral 750 ml Result Diagram: 03/10/17 0130 03/10/17 0240 Objective Remarks alert awake nad Assessment and Plan Assessment and Plan imp neurontin did not agree with her needs to be on keppra with hx sz on prior admission mri and eeg and esr and standing bp ok ok dc on keppra i dw her and friend Fazal Rey dr, MD Mar 11, 2017 07:24
[2017-03-11 07:58] VITALS: BP 146/81; PULSE 68; RESP 18; TEMP 96.9; O2SAT 99
[2017-03-11 08:00] VITALS: PULSE 52
[2017-03-11] MEDS: FAMOTIDINE 20 MG TAB PO SCH (08:08)
[2017-03-11] MEDS: VALSARTAN 160 MG TAB PO SCH (08:08)
[2017-03-11] MEDS: SODIUM CHLORIDE 0.9% FLUSH 10 ML FLUSH IV FLUSH SCH (08:09)
[2017-03-11] MEDS: levETIRAcetam 250 MG TAB PO SCH (08:09)
[2017-03-11] MEDS ORDERED: LEVE250 PO (08:16)
--- NOTE | 2017-03-11 08:32 | HHI.PR ---
Subjective Remarks in no acute distress. no new complaints. no seizures. d/w the RN. Objective Vitals Vital Signs Date Time Temp Pulse Resp B/P (MAP) Pulse Ox O2 Delivery O2 Flow Rate FiO2 03/11/17 07:58 96.9 68 18 146/81 (102) 99 03/11/17 05:58 15 03/11/17 05:10 64 03/11/17 04:47 98.1 57 16 136/86 (103) 98 03/11/17 01:22 98.0 72 16 134/83 (100) 95 03/10/17 23:33 66 03/10/17 20:57 97.5 75 16 146/85 (105) 97 139/87 (104) 125/81 (96) 03/10/17 19:21 69 03/10/17 17:00 81 03/10/17 16:46 96.7 82 15 152/78 (102) 100 03/10/17 12:50 60 14 138/72 (94) 98 Room Air I/O 03/10/17 03/10/17 03/10/17 03/11/17 03/11/17 03/11/17 07:00 15:00 23:00 07:00 15:00 23:00 Intake Total 750 ml Balance 750 ml Intake Oral 750 ml Result Diagram: 03/10/17 0130 03/10/17 0240 Imaging Last Impressions Brain MRI 03/10/17 0930 Signed Impressions: Service Date/Time: February 14:41 - CONCLUSION: 1. No acute hemorrhage or mass effect. There is no acute infarction. 2. Atrophy and chronic small vessel ischemic changes are again noted as well as small lacunar infarcts. Gopi Villavicencio MD Head CT 03/10/17 0013 Signed Impressions: Service Date/Time: February 00:34 - CONCLUSION: 1. No evidence of acute intracranial pathology. No masses are identified. 2. 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 CARDIOVASCULAR: Regular rate and regular rhythm without murmurs, gallops, or rubs. RESPIRATORY: Clear to auscultation. Breath sounds equal bilaterally. No wheezes , rales, or rhonchi. GASTROINTESTINAL: Abdomen soft, non-tender, nondistended. Normal, active bowel sounds MUSCULOSKELETAL: Extremities without clubbing, cyanosis, or edema. NEURO: Alert & Oriented x4 to person, place, time, situation. Moves all ext x4 Medications and IVs Inpatient Medications Acetaminophen (Tylenol) 650 mg NOW ONCE PO ; Start 03/10/17 at 10:15; Stop 01/15 at 10:16; Status DC Acetaminophen/ Hydrocodone Bitart (Corder 5-325 Mg) 1 tab Q6H PRN PO PAIN Last administered on 03/11/17at 04:54; Start 03/10/17 at 09:00 Amlodipine Besylate (Norvasc) 10 mg DAILY PO Last administered on 03/11/17at 08: 09; Start 03/10/17 at 09:00 Atorvastatin Calcium (Lipitor) 40 mg HS PO Last administered on 03/10/17at 20:18 ; Start 03/10/17 at 21:00 Brimonidine Tartrate (Alphagan 0.2% Opth Soln) 1 drop BID EACH EYE ; Start 03/10 at 09:00 Clonidine (Catapres) 0.1 mg TID PRN PO Elevated B/P>160/90; Start 03/10/17 at 09:00 Dorzolamide/ Timolol (Cosopt 2-0.5% Opth Soln) 1 drop BID EACH EYE ; Start 03/10 at 09:00 Famotidine (Pepcid) 20 mg BID PO Last administered on 03/11/17at 08:08; Start at 09:00 Levetriacetam (Keppra) 250 mg Q12HR PO Last administered on 03/11/17at 08:09; Start 03/10/17 at 21:00 Naloxone HCl (Narcan Inj) 0.4 mg UNSCH PRN IV PUSH SEE LABEL COMMENTS; Start at 04:45 Potassium Chloride (KCl) 40 meq ONCE ONCE PO Last administered on 03/10/17at 20 :18; Start 03/10/17 at 19:15; Stop 03/10/17 at 19:16; Status DC Sodium Chloride (NS Flush) 2 ml BID IV FLUSH Last administered on 03/10/17at 20: 19; Start 03/10/17 at 09:00 Valsartan (Diovan) 160 mg DAILY PO Last administered on 03/11/17at 08:08; Start 03/10/17 at 09:00 A/P Assessment and Plan A/P - dizziness- has improved. neurology consulted and cleared her for discharge. -seizure disorder ; started on Keppra- -History of cardiac catheter coronary artery disease/Hyperlipidemia CHF CVA hypertension, hepatitis, GRD, implanted vascular device, kidney stone, root canal, to stent placed, resume home meds. Discharge Planning dc home with f/u with pcp and neurology. David Hendrix MD Mar 11, 2017 08:32
[2017-03-11] MEDS: BRIMONIDINE TARTRATE 0.2% OPHT SOLN 5 ML BTL EACH EYE SCH (09:00)
[2017-03-11] MEDS: DORZOLAMIDE/TIMOLOL OPTH SOLN 10 ML BTL EACH EYE SCH (09:00)
== END 2017-03-11 10:57 | disposition home or self-care (01) ==
LOC: NEPD 20:58 → NEDA 03-10 04:10 → NEPHCDU 03-10 16:32
PROVIDERS: ADMIT Internal Medicine; ATTEND Internal Medicine
DX: G40.909 Epilepsy, unspecified, not intractable, without status epilepticus (principal); R42 Dizziness and giddiness; R51 Headache; E87.6 Hypokalemia; E78.5 Hyperlipidemia, unspecified; D64.9 Anemia, unspecified; I11.0 Hypertensive heart disease with heart failure; I50.9 Heart failure, unspecified; I25.10 Atherosclerotic heart disease of native coronary artery without angina pectoris; G47.00 Insomnia, unspecified; K21.9 Gastro-esophageal reflux disease without esophagitis; R94.31 Abnormal electrocardiogram [ECG] [EKG]; I25.2 Old myocardial infarction; Z86.73 Personal history of transient ischemic attack (TIA), and cerebral infarction without residual deficits; Z87.442 Personal history of urinary calculi; Z95.1 Presence of aortocoronary bypass graft; Z95.5 Presence of coronary angioplasty implant and graft; Z90.710 Acquired absence of both cervix and uterus; Z96.651 Presence of right artificial knee joint; Z79.899 Other long term (current) drug therapy
CPT/HCPCS: 70450; 70553; 80053; 80307; 81001; 84484; 85025; 85652; 93005; 95819; 97163; 99285; A9579; G0378; G8987; G8988